=== PATIENT | male | born 1955 | race Caucasian/White ===

== ENCOUNTER 2020-03-29 14:23 | Outpatient (REF) | payer OTHER, SELFPAY | END 2020-03-29 14:24 | disposition home or self-care (01) | LOC: HO.MRI 14:23 | PROVIDERS: Visit Provider Internal Medicine | DX: Z13.89 Encounter for screening for other disorder (principal) ==

== ENCOUNTER → 2020-03-30 11:28 | Outpatient (BNVA) | payer OTHER, SELFPAY | PROVIDERS: PCP Internal Medicine; Referring Provider Internal Medicine; Visit Provider Student in an Organized Health Care Education/Training Program | DX: M25.50 Pain in unspecified joint (principal); M67.912 Unspecified disorder of synovium and tendon, left shoulder; Z79.899 Other long term (current) drug therapy | CPT/HCPCS: 99212 ==

== ENCOUNTER 2020-03-30 12:23 | Outpatient (REF) | payer OTHER, SELFPAY ==
[2020-03-30 14:41] LABS: Erythrocyte Sedimentation Rate 9 MM/HR (0-15)
== END 2020-03-30 12:24 | disposition home or self-care (01) ==
LOC: HO.LAB 12:23
PROVIDERS: PCP Internal Medicine; Visit Provider Student in an Organized Health Care Education/Training Program
DX: M25.50 Pain in unspecified joint (principal)
CPT/HCPCS: 36415; 85652

== ENCOUNTER 2020-04-11 09:29 | Outpatient (REF) | payer OTHER, SELFPAY ==
--- NOTE | 2020-04-11 09:34 | MR_ITS ---
EXAMINATION: MR CERVICAL SPINE WITHOUT CONTRAST CLINICAL INFORMATION: Cervical spondylosis. Myelopathy. COMPARISON: Cervical spine MRI 04/03/2016. TECHNIQUE: MRI of the cervical spine was obtained using routine sequences without contrast. FINDINGS: There is slight anterolisthesis of C6 on C7 and C7 on T1 that appears to be related to facet degenerative changes at these 2 levels. Alignment is otherwise normal. Vertebral heights are preserved. There is mild bone marrow edema involving the articular pillars of the left C5-C6 facet joint. No other acute bone marrow signal changes within the [id number] of this examination. There is no canal compromise or cord compression. No abnormal intramedullary signal changes. The cervicomedullary junction is normal. Limited visualization of intracranial structures reveals no abnormal finding. The occipital condyles and lateral C1 masses are intact. There is severe degenerative arthrosis of the atlantodental joint. C1-C2 articular facets are unremarkable. At C2-C3 the annular contour is normal. No canal stenosis. Asymmetric uncovertebral joint spurring and facet degenerative change causes mild bilateral neuroforaminal encroachment, slightly greater right. At C3-C4 the annular contour is normal. No canal stenosis. Uncovertebral joint spurring and facet degenerative change causes mild to moderate bilateral neuroforaminal encroachment. At C4-C5 the annular contour is normal. No canal stenosis. Uncovertebral joint spurring and facet degenerative change causes severe right and mild left neuroforaminal encroachment. At C5-C6 there is a diffusely bulging disc causing flattening of the thecal sac and buckling of ligamenta flava causing dorsolateral indentation of the thecal sac. Mild to moderate canal stenosis. Asymmetric uncovertebral joint spurring and facet degenerative change causes severe left and mild right neuroforaminal encroachment. At C6-C7 there is a slightly bulging disc. No canal stenosis. Uncovertebral joint spurring and facet degenerative change causes moderate left and mild right neuroforaminal encroachment. At C7-T1 there is a slightly bulging disc. No canal stenosis. Uncovertebral joint spurring and facet degenerative change causes moderate left and mild right neuroforaminal encroachment. Visualized soft tissues of the neck are normal. MR/MR cervical spine wo con IMPRESSION: There is multilevel degenerative spondylosis of the cervical spine with slight anterolisthesis of C6 on C7 and C7 on T1. There is mild to moderate canal stenosis at C5-C6. No overt cord compression or abnormal intramedullary signal changes. There are varying degrees of neuroforaminal encroachment related to uncovertebral joint spurring and facet degenerative change as described above. There is mild bone marrow edema involving the articular pillars of the left C5-C6 facet joint, presumably representing aseptic inflammation in setting of facet arthrosis.
== END 2020-04-11 09:30 | disposition home or self-care (01) ==
LOC: HO.MRI 09:29
PROVIDERS: Visit Provider Internal Medicine
DX: M47.812 Spondylosis without myelopathy or radiculopathy, cervical region (principal)
CPT/HCPCS: 72141

== ENCOUNTER 2020-04-22 11:02 | Outpatient (REF) | payer OTHER, SELFPAY ==
[2020-04-22 12:05] LABS: C Reactive Protein 0.35 mg/dL (< or = 0.50)
[2020-04-22 13:56] LABS: Erythrocyte Sedimentation Rate 7 MM/HR (0-15)
== END 2020-04-22 11:03 | disposition home or self-care (01) ==
LOC: HO.LAB 11:02
PROVIDERS: PCP Internal Medicine; Visit Provider Student in an Organized Health Care Education/Training Program
DX: M25.50 Pain in unspecified joint (principal)
CPT/HCPCS: 36415; 85652; 86140

== ENCOUNTER → 2020-04-28 09:17 | Outpatient (BNVA) | payer OTHER, SELFPAY | PROVIDERS: PCP Internal Medicine; Referring Provider Internal Medicine; Visit Provider Student in an Organized Health Care Education/Training Program | DX: Z76.89 Persons encountering health services in other specified circumstances (principal) ==

== ENCOUNTER 2020-05-23 09:55 | Outpatient (REF) | payer MEDICAID, SELFPAY ==
--- NOTE | 2020-05-23 10:21 | XR_ITS ---
EXAMINATION: XR CHEST CLINICAL INFORMATION: Smoker. Follow-up. COMPARISON: Chest 10/07/2018 TECHNIQUE: 2 views of the chest were obtained. FINDINGS: The lungs are well-expanded and clear of acute process. There is a 1 cm nodular density right lower lobe right posterior eighth interspace. The heart size and pulmonary vascularity is normal. There is mild spondylosis of dorsal spine. No lytic process. XR/XR chest 2V IMPRESSION: No acute process seen. New 1 cm nodular density visualized in right lower lobe.
[2020-05-23 10:52] LABS: Hemoglobin 14.7 g/dl (14.0-18.0); Mean Corpuscular Hemoglobin 31.5 pg (27.0-33.0); Mean Corpuscular Volume 89.9 fL (80-98); Mean Platelet Volume 9.1 fL (9.4-12.4); Platelet Count 225 X10*3/uL (160-400); Red Blood Count 4.67 X10*6/uL (4.60-5.80); Red Cell Distribution Width 11.9 % (11.0-16.0); White Blood Count 9.8 X10*3/uL (4.8-10.8)
[2020-05-23 11:20] LABS: C Reactive Protein 0.38 mg/dL (< or = 0.50)
[2020-05-23 11:23] LABS: Alanine Aminotransferase 23 U/L (0-40); Albumin Level 4.1 g/dL (3.5-5.0); Alkaline Phosphatase 60 U/L (39-117); Anion Gap 13 (12-20); Aspartate Amino Transferase 17 U/L (5-37); Bilirubin Direct 0.4 mg/dL (0.0-0.5); Bilirubin Total 1.1 mg/dL (0.0-1.0); Blood Urea Nitrogen 10 mg/dL (9-16); C Reactive Protein 0.33 mg/dL (< or = 0.50); Calcium 9.1 mg/dL (8.4-10.2); Carbon Dioxide 30 mmol/L (22-29); Chloride 104 mmol/L (96-108); Cholesterol 220 mg/dL; Estimated Glomerular Filt Rate > 60; Glucose Random 108 mg/dL (60-115); HDL Cholesterol 69 mg/dL; LDL Cholesterol Calculated 126 mg/dl; Potassium 4.9 mmol/l (3.3-5.1); Sodium 142 mmol/L (135-145); Total Protein 6.3 g/dL (6.5-8.0); Triglycerides 127 mg/dL
[2020-05-23 11:44] LABS: Thyroid Stimulating Hormone 1.36 uIU/mL (0.32-4.0)
[2020-05-23 11:49] LABS: Folate 12.1 ng/mL (> or = 4.0); Vitamin B12 310 pg/mL (200-900)
[2020-05-23 12:31] LABS: Erythrocyte Sedimentation Rate 6 MM/HR (0-15)
[2020-05-27 13:42] LABS: Vitamin D 25-OH, D2 <4 ng/mL; Vitamin D 25-OH, D3 30 ng/mL; Vitamin D 25-OH, Total 30 ng/mL (30-100)
== END 2020-05-23 09:56 | disposition home or self-care (01) ==
LOC: HO.LAB 09:55
PROVIDERS: Student in an Organized Health Care Education/Training Program; PCP Internal Medicine; Visit Provider Internal Medicine
DX: Z00.01 Encounter for general adult medical examination with abnormal findings (principal); R07.9 Chest pain, unspecified; M25.50 Pain in unspecified joint
CPT/HCPCS: 36415; 71046; 80048; 80061; 80076; 82306; 82607; 82746; 84443; 85027; 85652; 86140

== ENCOUNTER → 2021-02-07 09:59 | Outpatient (BNVA) | payer OTHER, SELFPAY | PROVIDERS: PCP Internal Medicine; Visit Provider Nurse Practitioner Family | DX: M25.50 Pain in unspecified joint (principal) | CPT/HCPCS: 99212 ==

== ENCOUNTER 2021-03-06 07:31 | Outpatient (REF) | payer OTHER, SELFPAY ==
[2021-03-06 07:42] LABS: MANUAL DIFF FLAG NO
[2021-03-06 08:01] LABS: Basophils Percent Auto 0.5 % (0-2); Eosinophils Absolute Auto 0.2 X10*3/uL (0.0-0.4); Eosinophils Percent Auto 2.4 % (0-4); Hematocrit 43.1 % (42-52); Imm Gran Abs Auto 0.03 X10*3/uL (0.00-0.03); Imm Gran Pct Auto 0.4 % (0.0-0.4); Lymphocytes Absolute Auto 2.5 X10*3/uL (1.2-4.9); Mean Corpuscular HGB Conc 34.8 g/dl (31.0-36.0); Mean Corpuscular Hemoglobin 31.6 pg (27.0-33.0); Mean Corpuscular Volume 90.9 fL (80-98); Mean Platelet Volume 9.4 fL (9.4-12.4); Monocytes Absolute Auto 0.9 X10*3/uL (0.1-1.2); Monocytes Percent Auto 10.5 % (2-11); Neutrophils Absolute Auto 4.7 X10*3/uL (2.0-8.3); Neutrophils Percent Auto 56.2 % (45-73); Platelet Count 224 X10*3/uL (160-400); Red Blood Count 4.74 X10*6/uL (4.60-5.80); White Blood Count 8.4 X10*3/uL (4.8-10.8)
[2021-03-06 08:29] LABS: Alanine Aminotransferase 22 U/L (0-40); Alkaline Phosphatase 68 U/L (39-117); Anion Gap 12 (12-20); Aspartate Amino Transferase 23 U/L (5-37); Bilirubin Total 1.3 mg/dL (0.0-1.0); Blood Urea Nitrogen 11 mg/dL (9-16); C Reactive Protein 0.25 mg/dL (< or = 0.50); Calcium 9.3 mg/dL (8.4-10.2); Carbon Dioxide 29 mmol/L (22-29); Chloride 106 mmol/L (96-108); Estimated Glomerular Filt Rate > 60; Glucose Random 99 mg/dL (60-115); Potassium 4.5 mmol/L (3.3-5.1); Sodium 142 mmol/L (135-145)
[2021-03-06 09:38] LABS: Erythrocyte Sedimentation Rate 5 MM/HR (0-15)
== END 2021-03-06 07:32 | disposition home or self-care (01) ==
LOC: HO.LAB 07:31
PROVIDERS: PCP Internal Medicine; Visit Provider Nurse Practitioner Family
DX: M25.50 Pain in unspecified joint (principal)
CPT/HCPCS: 36415; 80053; 85025; 85652; 86140

== ENCOUNTER → 2021-03-30 11:33 | Outpatient (BNVA) | payer OTHER, SELFPAY | PROVIDERS: PCP Internal Medicine; Visit Provider Nurse Practitioner Family | DX: M47.812 Spondylosis without myelopathy or radiculopathy, cervical region (principal); M25.511 Pain in right shoulder; M25.512 Pain in left shoulder; M54.9 Dorsalgia, unspecified; M25.551 Pain in right hip; M25.552 Pain in left hip | CPT/HCPCS: 99212 ==

== ENCOUNTER 2021-04-18 07:03 | Outpatient (REF) | payer OTHER, SELFPAY ==
--- NOTE | ~2021-04-18 | XR_ITS ---
EXAMINATION: XR HIP, RIGHT XR HIP, LEFT CLINICAL INFORMATION: Pain COMPARISON: 11/28/2016 TECHNIQUE: 2 views of each hip FINDINGS: Right hip: No fracture or dislocation. The femoral head articulates appropriately with its acetabulum. The joint space is maintained. There is marginal osteophyte formation with subchondral sclerosis noted. The visualized right hemipelvis is intact. Left hip: No fracture or dislocation. The femoral head articulates appropriately with its acetabulum. The joint space is maintained. There is marginal osteophyte formation with subchondral sclerosis noted. The visualized left hemipelvis is intact. XR/XR hip RT min 2V IMPRESSION: Mild degenerative changes of both hips. Similar appearance to prior imaging.
--- NOTE | ~2021-04-18 | XR_ITS ---
EXAMINATION: XR SHOULDER, LEFT XR SHOULDER, RIGHT CLINICAL INFORMATION: Pain COMPARISON: 02/01/2020 TECHNIQUE: 4 views of each shoulder FINDINGS: Left shoulder: No fracture or dislocation. The glenohumeral joint is well aligned. There is narrowing of the joint space with osteophyte formation. Moderate hypertrophic degenerative changes of the acromioclavicular joint. The visualized lung is clear. The visualized ribs are intact. Right shoulder: No fracture or dislocation. The glenohumeral joint is well aligned. Mild narrowing of the joint space with marginal osteophyte formation. Moderate degenerative changes of the acromioclavicular joint. The visualized lung is clear. The visualized ribs are intact. XR/XR shoulder LT min 2V IMPRESSION: Mild to moderate degenerative changes of both shoulders.
--- NOTE | ~2021-04-18 | XR_ITS ---
EXAMINATION: XR SHOULDER, LEFT XR SHOULDER, RIGHT CLINICAL INFORMATION: Pain COMPARISON: 02/01/2020 TECHNIQUE: 4 views of each shoulder FINDINGS: Left shoulder: No fracture or dislocation. The glenohumeral joint is well aligned. There is narrowing of the joint space with osteophyte formation. Moderate hypertrophic degenerative changes of the acromioclavicular joint. The visualized lung is clear. The visualized ribs are intact. Right shoulder: No fracture or dislocation. The glenohumeral joint is well aligned. Mild narrowing of the joint space with marginal osteophyte formation. Moderate degenerative changes of the acromioclavicular joint. The visualized lung is clear. The visualized ribs are intact. XR/XR shoulder RT min 2V IMPRESSION: Mild to moderate degenerative changes of both shoulders.
--- NOTE | ~2021-04-18 | XR_ITS ---
EXAMINATION: XR HIP, RIGHT XR HIP, LEFT CLINICAL INFORMATION: Pain COMPARISON: 11/28/2016 TECHNIQUE: 2 views of each hip FINDINGS: Right hip: No fracture or dislocation. The femoral head articulates appropriately with its acetabulum. The joint space is maintained. There is marginal osteophyte formation with subchondral sclerosis noted. The visualized right hemipelvis is intact. Left hip: No fracture or dislocation. The femoral head articulates appropriately with its acetabulum. The joint space is maintained. There is marginal osteophyte formation with subchondral sclerosis noted. The visualized left hemipelvis is intact. XR/XR hip LT min 2V IMPRESSION: Mild degenerative changes of both hips. Similar appearance to prior imaging.
[2021-04-18 08:22] LABS: C Reactive Protein 0.17 mg/dL (< or = 0.50)
[2021-04-18 08:52] LABS: Erythrocyte Sedimentation Rate 5 MM/HR (0-15)
== END 2021-04-18 07:04 | disposition home or self-care (01) ==
LOC: HO.XRAY 07:03
PROVIDERS: Student in an Organized Health Care Education/Training Program; PCP Internal Medicine; Visit Provider Nurse Practitioner Family
DX: M25.551 Pain in right hip (principal); M25.552 Pain in left hip; M25.511 Pain in right shoulder; M25.512 Pain in left shoulder
CPT/HCPCS: 36415; 73030; 73502; 85652; 86140

== ENCOUNTER 2021-05-03 12:45 | Outpatient (REF) | payer OTHER, SELFPAY ==
--- NOTE | ~2021-05-03 | MR_ITS ---
EXAMINATION: MR CERVICAL SPINE WITHOUT CONTRAST CLINICAL INFORMATION: Radiculopathy. COMPARISON: Cervical spine MRI from 04/11/2020. TECHNIQUE: MRI of the cervical spine was obtained using routine sequences without contrast. FINDINGS: Mild degenerative stepwise anterolisthesis from C4-T3. Otherwise, normal anatomic alignment. Moderate degenerative disc disease from C4-T3. Mild degenerative disc disease from C2-C4. Associated mixed Modic type discogenic endplate changes including mild Modic type I discogenic edema at C5-C6 and C6-C7. Mild marrow edema within the C5-C6 and T1-T2 facets consistent with degenerative stress reaction. No additional suspicious marrow edema. The vertebral body heights are largely maintained. No demonstrated spinal cord signal abnormalities. Limited evaluation of the soft tissues of the neck without demonstrated abnormalities. The flow voids of the major cervical vessels are maintained. Normal appearance of the cervicomedullary junction and visualized posterior fossa. SPINAL LEVELS: C2-C3: Normal annular contour. There is no uncovertebral joint arthropathy. There is moderate bilateral facet joint arthropathy. There is moderate right and mild left neural foraminal stenosis. There is no spinal canal stenosis. C3-C4: Mild disc-osteophyte complex. There is mild right and no left uncovertebral joint arthropathy. There is severe left and moderate right facet joint arthropathy. There is moderate bilateral neural foraminal stenosis. There is no spinal canal stenosis. C4-C5: Mild disc-osteophyte complex. There is moderate right and mild left uncovertebral joint arthropathy. There is severe right and moderate left facet joint arthropathy. There is severe right and moderate left neural foraminal stenosis. There is no spinal canal stenosis. C5-C6: Moderate disc-osteophyte complex. There is severe left and moderate right uncovertebral joint arthropathy. There is severe bilateral facet joint arthropathy. There is severe left and moderate right neural foraminal stenosis. There is mild to moderate spinal canal stenosis. C6-C7: Moderate disc-osteophyte complex. There is severe right and moderate left uncovertebral joint arthropathy. There is severe right and moderate left facet joint arthropathy. There is moderate bilateral neural foraminal stenosis. There is no spinal canal stenosis. C7-T1: Mild disc-osteophyte complex. There is mild bilateral uncovertebral joint arthropathy. There is moderate bilateral facet joint arthropathy. There is mild bilateral neural foraminal stenosis. There is no spinal canal stenosis. MR/MR cervical spine wo con IMPRESSION: Moderate multilevel degenerative spondyloarthropathy of the cervical spine as described in detail above. Most notably, there is mild to moderate spinal canal stenosis at C5-C6. Moderate to severe neural foraminal stenoses from C2-C7. Overall, degenerative changes are similar to exam from 2020.
== END 2021-05-03 12:46 | disposition home or self-care (01) ==
LOC: HO.MRI 12:45
PROVIDERS: PCP Internal Medicine; Visit Provider Nurse Practitioner Family
DX: M54.10 Radiculopathy, site unspecified (principal); M47.812 Spondylosis without myelopathy or radiculopathy, cervical region
CPT/HCPCS: 72141

== ENCOUNTER → 2021-05-15 10:58 | Outpatient (BNVA) | payer OTHER, SELFPAY | PROVIDERS: PCP Internal Medicine; Visit Provider Anesthesiology | DX: M47.816 Spondylosis without myelopathy or radiculopathy, lumbar region (principal); M96.1 Postlaminectomy syndrome, not elsewhere classified; G89.4 Chronic pain syndrome | CPT/HCPCS: 99212 ==

== ENCOUNTER 2021-05-26 09:44 | Outpatient (REF) | payer OTHER, SELFPAY ==
--- NOTE | ~2021-05-26 | MR_ITS ---
MR LUMBAR SPINE WITHOUT IV CONTRAST CLINICAL INFORMATION: Postlaminectomy syndrome. COMPARISON: Lumbar spine MRI 02/11/2013. TECHNIQUE: MRI of the lumbar spine was obtained using routine sequences without contrast. FINDINGS: There are 5 nonrib-bearing lumbar-type vertebral bodies. Chronic endplate Schmorl's nodes at the lower thoracic levels and throughout the lumbar spine. There is an inferior endplate Schmorl's nodes surrounded by mild marrow edema at L4. There is marrow edema within the L5 and S1 posterior elements bilaterally that is most likely degenerative or inflammatory. No acute fractures. There is disc desiccation at all lumbar levels the exception of L1 on L2. Heterogeneous marrow signal throughout the lumbar spine. Conus terminates at the L1-L2 level. There is bilateral perinephric stranding. L1-L2: Diffuse annular disc bulge with a superimposed left lateral disc protrusion that approaches and may contact the extraforaminal left L1 nerve root, progressed. L2-L3: Diffuse annular disc bulge and moderate bilateral facet arthropathy and ligamentum thickening. No central canal stenosis. Left lateral disc osteophyte protrusion results in mild to moderate left foraminal stenosis and probable mass effect on the extraforaminal left L2 nerve root which is unchanged. L3-L4: There is a right paracentral/right lateral disc protrusion which is increased in size, resulting in worsening compression of the traversing right L4 nerve root within the right subarticular zone and worsening moderate right foraminal stenosis with compression of the extraforaminal right L3 nerve root. A left lateral disc osteophyte protrusion is also progressed that along with advanced facet arthropathy results in moderate to severe left foraminal stenosis and compression of the exiting left L3 nerve root. L4-L5: Diffuse disc osteophyte complex and severe bilateral facet arthropathy and ligamentum flavum thickening. Laminectomy changes. Findings in concert result in persistent severe right subarticular zone stenosis with compression of the traversing right L5 nerve root in stable severe bilateral foraminal stenosis with compression of the exiting L4 nerve roots bilaterally. Mild central canal stenosis. L5-S1: Diffuse disc osteophyte complex and severe bilateral facet arthropathy and ligamentum flavum pinning. Mild narrowing of the central canal. Disc osteophyte and facet arthropathy result in worsening severe bilateral foraminal stenosis with compression of the exiting L5 nerve roots bilaterally. A new 3 mm synovial cyst projecting anteriorly from the lateral margin of the severely degenerative left facet joint also contributes towards mass effect on the extraforaminal left L5 nerve root. MR/MR lumbar spine wo con IMPRESSION: - At L5-S1, progressive advanced multifactorial degenerative changes result in worsening severe bilateral foraminal stenosis with compression of the exiting L5 nerve roots bilaterally. A new 3 mm synovial cyst projecting anteriorly from the lateral margin of the severely degenerative left facet joint also contributes towards mass effect on the extraforaminal left L5 nerve root. - At L4-L5, advanced multifactorial degenerative changes result in persistent severe right subarticular zone stenosis with compression of the traversing right L5 nerve root in stable severe bilateral foraminal stenosis with compression of the exiting L4 nerve roots bilaterally. - At L3-L4, a right paracentral/right lateral disc protrusion is increased in size, resulting in worsening compression of the traversing right L4 nerve root within the right subarticular zone and worsening moderate right foraminal stenosis with compression of the extraforaminal right L3 nerve root. A left lateral disc osteophyte protrusion is also progressed that along with advanced facet arthropathy results in moderate to severe left foraminal stenosis and compression of the exiting left L3 nerve root. - At L2-L3, a left lateral disc osteophyte protrusion results in mild to moderate left foraminal stenosis and probable mass effect on the extraforaminal left L2 nerve root which is unchanged. - At L1-L2, there is a progressive far left lateral disc protrusion that may contact the extraforaminal left L1 nerve root. - There is an inferior endplate Schmorl's nodes surrounded by mild marrow edema at L4. - There is marrow edema within the L5 and S1 posterior elements bilaterally that is most likely degenerative or inflammatory. No acute fractures.
== END 2021-05-26 09:45 | disposition home or self-care (01) ==
LOC: HO.MRI 09:44
PROVIDERS: PCP Internal Medicine; Visit Provider Anesthesiology
DX: M96.1 Postlaminectomy syndrome, not elsewhere classified (principal); M47.816 Spondylosis without myelopathy or radiculopathy, lumbar region
CPT/HCPCS: 72148

== ENCOUNTER 2021-05-31 07:46 | Outpatient (REF) | payer OTHER, SELFPAY ==
--- NOTE | ~2021-05-31 | XR_ITS ---
EXAMINATION: XR HAND, RIGHT XR HAND, LEFT CLINICAL INFORMATION: Bilateral pain. COMPARISON: Radiographs bilateral hands 10/07/2018 TECHNIQUE: Each hand is imaged in 3 views. There are total of 6 views. FINDINGS: Right: There is no fracture dislocation or destructive process. Ulnar variance is neutral. There is normal bony mineralization. No periarticular demineralization. There is no focal joint narrowing involving the carpus, MCP, and PIP joints. There is mild degenerative change involving the DIP joints similar to prior study. Left: There is no fracture dislocation or destructive process. Ulnar variance is neutral. There is normal bony mineralization. No periarticular demineralization. There is no focal joint narrowing involving the carpus, MCP, and PIP joints. There is mild degenerative change involving the DIP joints similar to prior study. XR/XR hand LT min 3V IMPRESSION: Degenerative changes bilateral DIP joint. No erosive changes.
--- NOTE | ~2021-05-31 | XR_ITS ---
EXAMINATION: XR HAND, RIGHT XR HAND, LEFT CLINICAL INFORMATION: Bilateral pain. COMPARISON: Radiographs bilateral hands 10/07/2018 TECHNIQUE: Each hand is imaged in 3 views. There are total of 6 views. FINDINGS: Right: There is no fracture dislocation or destructive process. Ulnar variance is neutral. There is normal bony mineralization. No periarticular demineralization. There is no focal joint narrowing involving the carpus, MCP, and PIP joints. There is mild degenerative change involving the DIP joints similar to prior study. Left: There is no fracture dislocation or destructive process. Ulnar variance is neutral. There is normal bony mineralization. No periarticular demineralization. There is no focal joint narrowing involving the carpus, MCP, and PIP joints. There is mild degenerative change involving the DIP joints similar to prior study. XR/XR hand RT min 3V IMPRESSION: Degenerative changes bilateral DIP joint. No erosive changes.
[2021-05-31 08:49] LABS: Rheumatoid Factor < 15.0 IU/mL (<15.0)
[2021-05-31 08:51] LABS: Anion Gap 12 (12-20); Blood Urea Nitrogen 11 mg/dL (9-16); C Reactive Protein 1.02 mg/dL (< or = 0.50); Calcium 9.6 mg/dL (8.4-10.2); Carbon Dioxide 30 mmol/L (22-29); Chloride 104 mmol/L (96-108); Estimated Glomerular Filt Rate > 60; Glucose Random 110 mg/dL (60-115); Potassium 4.8 mmol/L (3.3-5.1); Sodium 141 mmol/L (135-145)
[2021-05-31 09:10] LABS: Erythrocyte Sedimentation Rate 10 MM/HR (0-15)
[2021-06-04 02:16] LABS: Cyclic Citrullinated Peptide <16 UNITS
== END 2021-05-31 07:47 | disposition home or self-care (01) ==
LOC: HO.LAB 07:46
PROVIDERS: Anesthesiology; PCP Internal Medicine; Visit Provider Nurse Practitioner Family
DX: M96.1 Postlaminectomy syndrome, not elsewhere classified (principal); M79.641 Pain in right hand; M79.642 Pain in left hand; M25.50 Pain in unspecified joint; M47.812 Spondylosis without myelopathy or radiculopathy, cervical region; M35.3 Polymyalgia rheumatica; F17.290 Nicotine dependence, other tobacco product, uncomplicated; Z79.899 Other long term (current) drug therapy
CPT/HCPCS: 36415; 73130; 80048; 85652; 86140; 86200; 86431; 99212

== ENCOUNTER 2021-06-01 09:42 | Outpatient (REF) | payer OTHER, SELFPAY ==
[2021-06-01 10:41] LABS: Hematocrit 43.8 % (42.0-52.0); Hemoglobin 15.5 g/dl (14.0-18.0); Mean Corpuscular HGB Conc 35.4 g/dl (31.0-36.0); Mean Corpuscular Hemoglobin 30.4 pg (27.0-33.0); Mean Corpuscular Volume 85.9 fL (80.0-98.0); Mean Platelet Volume 9.1 fL (9.4-12.4); Platelet Count 295 X10*3/uL (160-400); Red Cell Distribution Width 11.5 % (11.0-16.0)
[2021-06-01 11:17] LABS: Erythrocyte Sedimentation Rate 13 MM/HR (0-15)
[2021-06-01 11:19] LABS: Alanine Aminotransferase 22 U/L (0-40); Albumin Level 4.1 g/dL (3.5-5.0); Alkaline Phosphatase 84 U/L (39-117); Anion Gap 13 (12-20); Aspartate Amino Transferase 16 U/L (5-37); Bilirubin Direct 0.3 mg/dL (0.0-0.5); Blood Urea Nitrogen 11 mg/dL (9-16); Calcium 9.7 mg/dL (8.4-10.2); Carbon Dioxide 24 mmol/L (22-29); Chloride 108 mmol/L (96-108); Cholesterol 237 mg/dL; Estimated Glomerular Filt Rate > 60; Glucose Random 99 mg/dL (60-115); HDL Cholesterol 51 mg/dL; LDL Cholesterol Calculated 161 mg/dl; Potassium 4.4 mmol/L (3.3-5.1); Sodium 141 mmol/L (135-145); Total Protein 6.9 g/dL (6.5-8.0); Triglycerides 125 mg/dL
[2021-06-01 11:29] LABS: Thyroid Stimulating Hormone 0.59 uIU/mL (0.32-4.0)
[2021-06-01 11:58] LABS: Appearance Urine CLEAR; Color Urine YELLOW; Glucose Urine UA NEG (NEG); Leukocyte Esterase Urine NEG (NEG); Nitrite Urine NEG (NEG); Specific Gravity - Urine >= 1.030 (1.005-1.025); Urine Blood NEG (NEG); Urine Ketones NEG (NEG); Urine Protein NEG (NEG-TRACE)
[2021-06-05 16:17] LABS: Vitamin D 25-OH, D2 <4 ng/mL; Vitamin D 25-OH, D3 37 ng/mL; Vitamin D 25-OH, Total 37 ng/mL (30-100)
== END 2021-06-01 09:43 | disposition home or self-care (01) ==
LOC: HO.LAB 09:42
PROVIDERS: PCP Internal Medicine; Visit Provider Internal Medicine
DX: I10 Essential (primary) hypertension (principal); M47.812 Spondylosis without myelopathy or radiculopathy, cervical region
CPT/HCPCS: 36415; 80048; 80061; 80076; 81003; 82306; 84443; 85027; 85652

== ENCOUNTER → 2021-06-19 14:52 | Outpatient (BNVA) | payer OTHER, SELFPAY | PROVIDERS: PCP Internal Medicine; Visit Provider Physician Assistant | DX: M35.3 Polymyalgia rheumatica (principal); G89.4 Chronic pain syndrome; M54.12 Radiculopathy, cervical region; M48.02 Spinal stenosis, cervical region; Z79.52 Long term (current) use of systemic steroids; Z79.899 Other long term (current) drug therapy | CPT/HCPCS: 99202 ==

== ENCOUNTER → 2021-11-29 11:23 | Outpatient (BNVA) | payer MEDICAID, SELFPAY | PROVIDERS: PCP Internal Medicine; Visit Provider Nurse Practitioner Family | DX: M35.3 Polymyalgia rheumatica (principal); M47.812 Spondylosis without myelopathy or radiculopathy, cervical region; M19.042 Primary osteoarthritis, left hand; M19.041 Primary osteoarthritis, right hand; M47.816 Spondylosis without myelopathy or radiculopathy, lumbar region; Z79.52 Long term (current) use of systemic steroids | CPT/HCPCS: 99212 ==

== ENCOUNTER 2022-06-19 09:49 | Outpatient (REF) | payer MEDICAID, SELFPAY ==
[2022-06-19 10:40] LABS: Hematocrit 40.5 % (42.0-52.0); Hemoglobin 14.6 g/dl (14.0-18.0); Mean Corpuscular Hemoglobin 31.7 pg (27.0-33.0); Mean Corpuscular Volume 87.9 fL (80.0-98.0); Mean Platelet Volume 9.4 fL (9.4-12.4); Platelet Count 207 X10*3/uL (160-400); Red Blood Count 4.61 X10*6/uL (4.60-5.80); Red Cell Distribution Width 11.7 % (11.0-16.0); White Blood Count 7.2 X10*3/uL (4.8-10.8)
[2022-06-19 10:42] LABS: Appearance Urine Clear; Color Urine Yellow; Glucose Urine UA Negative (Negative); Leukocyte Esterase Urine Negative (Negative); Nitrite Urine Negative (Negative); PH 5.5 (5.0-9.0); Urine Blood Negative (Negative); Urine Ketones Trace mg/dL (Negative); Urine Protein Negative (Neg-Trace)
[2022-06-19 11:15] LABS: Alanine Aminotransferase 23 U/L (0-40); Albumin Level 3.9 g/dL (3.5-5.0); Alkaline Phosphatase 64 U/L (39-117); Anion Gap 14 (12-20); Aspartate Amino Transferase 20 U/L (5-37); Bilirubin Direct 0.3 mg/dL (0.0-0.5); Bilirubin Total 1.1 mg/dL (0.0-1.0); Blood Urea Nitrogen 11 mg/dL (9-16); Calcium 9.1 mg/dL (8.4-10.2); Carbon Dioxide 23 mmol/L (22-29); Chloride 109 mmol/L (96-108); Cholesterol 185 mg/dL; Estimated Glomerular Filt Rate > 60; Glucose Random 98 mg/dL (60-115); HDL Cholesterol 45 mg/dL; LDL Cholesterol Calculated 128 mg/dl; Potassium 4.4 mmol/L (3.3-5.1); Sodium 142 mmol/L (135-145); Total Protein 5.9 g/dL (6.5-8.0); Triglycerides 63 mg/dL
[2022-06-19 11:34] LABS: Thyroid Stimulating Hormone 1.55 uIU/mL (0.32-4.0)
== END 2022-06-19 09:50 | disposition home or self-care (01) ==
LOC: HO.LAB 09:49
PROVIDERS: PCP Internal Medicine; Visit Provider Internal Medicine
DX: I10 Essential (primary) hypertension (principal); K21.9 Gastro-esophageal reflux disease without esophagitis
CPT/HCPCS: 36415; 80048; 80061; 80076; 81003; 84443; 85027

== ENCOUNTER → 2022-07-06 08:20 | Outpatient (BNVA) | payer MEDICAID, SELFPAY | PROVIDERS: PCP Internal Medicine; Visit Provider Nurse Practitioner Family | DX: M35.3 Polymyalgia rheumatica (principal); M47.812 Spondylosis without myelopathy or radiculopathy, cervical region; M19.042 Primary osteoarthritis, left hand; M19.041 Primary osteoarthritis, right hand; M47.816 Spondylosis without myelopathy or radiculopathy, lumbar region; R21 Rash and other nonspecific skin eruption | CPT/HCPCS: 99212 ==

== ENCOUNTER 2022-07-27 09:30 | Outpatient (RCR) | payer MEDICAID, SELFPAY ==
--- NOTE | 2022-08-03 09:44 | MHC.OT.DC ---
[address] [phone] F: [phone] Occupational Therapy Discharge Note Patient Name: Severino Willson Provider: Estefany Dejesus NP Diagnosis: B/L Hand OA Date of Evaluation: 07/13/22 Date of Discharge: 07/27/22 Treatments to Date: 3 Discharge Status: Achieved Goals Improved Function Independent with HEP Discharge Summary: Chong was referred to OT w/ B/L hand pain and he has done well with brief course of OT. He has reported low pain and is feeling encouraged, noting ease w/ nighttime oval 8 splint wear, but still w/ active triggering of small finger, advised to wear orthosis more frequently during the day as needed. Ind w/ self management techniques at this time. If trigger finger conts to persist, he may benefit from ortho referral for further treatment. Electronically Signed By: Farrah Moon OTR/L CHT Reviewed/agree with student documentation: Therapist: Please Sign and return to therapist, thank you for your referral.
== END 2022-08-03 09:47 | disposition home or self-care (01) ==
LOC: HO.OT 09:30
PROVIDERS: PCP Internal Medicine; Visit Provider Nurse Practitioner Family
DX: M19.041 Primary osteoarthritis, right hand (principal); M79.642 Pain in left hand
CPT/HCPCS: 97018; 97110; 97140; 97165

== ENCOUNTER 2022-11-29 15:10 | Outpatient (AMB) | payer MEDICAID, SELFPAY ==
--- NOTE | 2022-11-29 15:21 | A.OFFPC_ITS ---
Vital Signs 11/29/22 15:23 Height 6 ft Weight 212 lb 2 oz BMI 28.8 BP 130/70 Blood Pressure Location Lt brachial Position Sitting Pulse 84 Pulse Source Pulse Oximeter Pulse Oximetry (%) 95 Oxygen Delivery Method Room Air Intake Visit Reasons: 8 week F/U ( Medications) Intake Note: Patient is here to follow up on medication review. Supervisor Whipped Topping Required: No Dietary Service Aide: Not Required per policy Accompanied by: Self / Same As Patient Allergies No Known Allergies Allergy (Verified 11/30/22 14:58) Medication List - Last Reconciled 11/30/22 by Chris Ernst MD albuterol sulfate 90 mcg/actuation (Ventolin HFA) 1 inh inhalation QID PRN meloxicam 7.5 mg PO BID omeprazole 40 mg PO DAILY prednisone 5 mg PO DAILY valsartan 40 mg PO BID Tobacco use date assessed: 11/29/22 Fall risk assessment: No Falls in past year Last assessed Fall Risk: 11/29/22 Dental Screening Dental Screen Date: 11/29/22 Did you have a dental visit in the last 12 months?: Yes Did you have a dental problem in the last 6 months where you did not have access to dental care?: No Was dental information given to patient?: Patient has dentist HPI 8 week F/U ( Medications) HPI Details 67-year-old male presents to the office for an urgent visit. He has polymyalgia for the past 8 years. Patient has been treating this condition with steroids. His baseline dosages 5 mg a day. However he does have flare ups which involves pains in his joints, difficulty moving etc and he has to increase his prednisone dosage. Patient would like a refill on the prednisone. [facility] Medical History Benign essential HTN Chronic pain syndrome Failed back syndrome GERD (gastroesophageal reflux disease) Nicotine dependence, unspecified, uncomplicated Osteoarthritis of hands, bilateral Osteoarthritis of neck Postlaminectomy syndrome Primary osteoarthritis, left hand Primary osteoarthritis, right hand Spondylosis of lumbar spine Surgical History CTS (carpal tunnel syndrome) Hx of decompressive lumbar laminectomy Family History Father No problems noted. Mother No problems noted. Social History (Updated 11/29/22 @ 15:31 by MARLIN Duke) Housing: House Alcohol intake: current Alcohol intake frequency: a few times a week Alcohol type: beer Patient Tobacco Use Status: Current someday Tobacco user Tobacco use type: Cigar Cigarettes Per Day: 1 e-Cigarette/Vaping Use: Never Used Second Hand Smoke Exposure: Yes service: No Current occupational status: unemployed Cognitive needs: No Hearing needs: No Vision needs: Yes (Glasses) Questionnaire Thrive Questionnaire Date Thrive assessed: 11/29/22 I am a: Patient What is your living situation today?: I have a steady place to live Within the past 12 months, did the food you bought not last and you didn't have the money to get more?: Never true Within the past 12 months, did you worry whether your food would run out before you got money to buy more?: Never true Do you have trouble paying for medicines?: No Do you have trouble getting transportation to medical appointments?: No Do you have trouble paying your heating and electricity bill?: No Do you have trouble taking care of your child, family member or friend?: No Do you have trouble with day-to-day activities such as bathing, preparing meals, shopping, managing finances, etc.?: No Are you currently unemployed and looking for a job?: No Are you interested in more education?: No Currently or been in a relationship where the following occur: no concerns reported AUDIT C Alcohol Use Questionnaire (AUDIT-C) 1. How often do you have a drink containing alcohol?: 2-3 times a week 2. How many drinks containing alcohol do you have on a typical day when you are drinking?: 1 or 2 Total Score: 3 PRINCE-7 AMB Questionnaire PRINCE-7 Date PRINCE - 7 assessed: 11/29/22 Feeling nervous, anxious, or on edge: 0 = Not at all Not being able to stop or control worryin = Not at all Worrying too much about different things: 0 = Not at all Trouble relaxin = Not at all Being so restless that it is hard to sit still: 0 = Not at all Becoming easily annoyed or irritable: 0 = Not at all Feeling afraid as if something awful might happen: 0 = Not at all Total PRINCE-7 score (0-4 normal; 5-9 mild; 10-14 moderate; 15-21 severe): 0 Source: Developed by Drs. Gustavo Marques, Edna Lam, Placido Sims and colleagues, with an educational po from [employer]. Physical exam (Primary Care) Vital Signs: Last Vital Signs Pulse 84 11/29/22 15:23 BP 130/70 11/29/22 15:23 Pulse Ox 95 11/29/22 15:23 Oxygen Delivery Method Room Air 11/29/22 15:23 BMI result Body Mass Index 28.8 Tobacco/Smoking Status: Tobacco use Status Tobacco use date assessed 11/29/22 11/29/22 15:32 Patient Tobacco Use Status Current someday Tobacco 11/29/22 15:32 Tobacco use type Cigar 11/29/22 15:32 e-Cigarette/Vaping Use Never Used 11/29/22 15:32 Thrive Assessment: Date of Thrive Assessment Date Thrive assessed 11/29/22 11/29/22 15:32 Currently or been in a relationship where the following occur: no concerns reported Const General: cooperative, healthy appearing and comfortable HENMT Head: Yes normal to inspection and Yes atraumatic Eyes General: appearance normal, both eyes and all related structures Neck Neck: Yes normal visual inspection and Yes full ROM Chest Chest palpation & inspection: normal inspection of the chest Resp Effort & Inspection: normal respiratory effort Auscultation: clear to auscultation bilaterally Cardio Jugular venous distension: no JVD Palpation: normal PMI Rate: regular rate Heart sounds: S1 normal heart sound present and S2 normal heart sound present GI Palpation (GI): Soft to palpation and No hepatosplenomegaly present Extrem General: Yes normal to inspection and Yes full ROM Assessment and Plan Assessment & Plan (1) Polymyalgia rheumatica: Code(s): M35.3 - Polymyalgia rheumatica Plan: Additional dosage for prednisone sent. Medications: Refilled prednisone 5 mg PO DAILY 90 tabs 1RF Coding Level of Care Code Est Pt Level 3 (39797) Diagnoses Polymyalgia rheumatica M35.3
[2022-11-29 15:23] VITALS: BP 130/70; PULSE 84; O2SAT 95; BMI 28.8
== END 2022-11-29 15:59 | disposition home or self-care (01) ==
PROVIDERS: Visit Provider Internal Medicine
DX: M35.3 Polymyalgia rheumatica (principal)
CPT/HCPCS: 99213

== ENCOUNTER 2022-12-07 11:55 | Outpatient (AMB) | payer MEDICAID, SELFPAY ==
--- NOTE | 2022-12-07 12:01 | MHC.OFFVIS ---
Intake Vital Signs 12/07/22 12:02 Height 6 ft Weight 215 lb 2.738 oz BMI 29.2 BP 132/80 Blood Pressure Location Lt brachial Position Sitting Pulse 86 Pulse Source Pulse Oximeter Temp 97.8 F Temp Source Skin Pulse Oximetry (%) 96 Intake Visit Reasons: PMR Intake Note: Pt seen today for PMR follow up. Saw PCP last week Dr Ernst. C/o pain in hands, shoulders, knees, top of bl feet. Pain has been for 2 months Market Consultant Required: No Accompanied by: Self / Same As Patient Allergies No Known Allergies Allergy (Verified 12/07/22 12:03) HPI HPI Comments History of Present Illness Details This is a 67-year-old male with PMR who presents for follow-up. Last seen by Kim Dejesus a few months ago. Since 2018 patient started having pain stiffness of his shoulders, hands, wrists, feet. He was diagnosed with rheumatoid arthritis and started on methotrexate, patient took it for 3-6 months without relief. Since then patient has been diagnosed with PMR and has been on varying doses of prednisone, his baseline dose of prednisone is 5 mg and there were times that he was on dexamethasone and other times when he would increase the prednisone dose to treat flares. Most recent flare was a few weeks ago and patient increase the prednisone to 20 mg daily for a few days then tapered it down back to 5 mg daily. When he has a flare he has significant difficulty getting up from bed, difficultly gripping things with his hands. Today he has pain in his hands, wrists, shoulders, feet. He is unaware of any family history of autoimmune rheumatic disease. Denies any history of psoriasis. No history of blood clots. PENDING SALE TO [facility] Medical History (Updated 12/07/22 @ 13:09 by Maggi Saha MD) Benign essential HTN Chronic pain syndrome Failed back syndrome GERD (gastroesophageal reflux disease) Nicotine dependence, unspecified, uncomplicated Osteoarthritis of hands, bilateral Osteoarthritis of neck Postlaminectomy syndrome Primary osteoarthritis, left hand Primary osteoarthritis, right hand Spondylosis of lumbar spine Surgical History CTS (carpal tunnel syndrome) Hx of decompressive lumbar laminectomy Family History Father No problems noted. Mother No problems noted. Social History Housing: House Alcohol intake: current Alcohol intake frequency: a few times a week Alcohol type: beer Patient Tobacco Use Status: Current someday Tobacco user Tobacco use type: Cigar Cigarettes Per Day: 1 e-Cigarette/Vaping Use: Never Used Second Hand Smoke Exposure: Yes service: No Current occupational status: unemployed Cognitive needs: No Hearing needs: No Vision needs: Yes (Glasses) Review of Systems Musc Reports arthralgias and Reports stiffness Skin/Breast Denies rash Physical Exam Vital Signs: Last Vital Signs Temp 97.8 F 12/07/22 12:02 Pulse 86 12/07/22 12:02 BP 132/80 12/07/22 12:02 Pulse Ox 96 12/07/22 12:02 BMI result Body Mass Index 29.2 Const General: cooperative, healthy appearing and comfortable Nutritional Appearance: overweight Orientation/consciousness: patient oriented x3 Limitations: no limitations HEENT Head: Yes normocephalic and Yes atraumatic Mouth: moist mucous membranes Resp Effort & Inspection: normal respiratory effort and able to speak in complete sentences Auscultation: clear to auscultation bilaterally Cardio Rate: regular rate Rhythm: regular rhythm Skin General skin exam: no rashes or lesions noted Neuro General: patient oriented x3 Extrem Other: Bilateral puffy index fingers No wrist tenderness but pain with full flexion and extension Bilateral positive MCP squeeze test No tender PIP is or DIP is Significantly limited range of motion of his shoulders Negative empty can test bilaterally Mild pain with full knee flexion bilaterally Bilateral few MTP joint tenderness and positive MTP squeeze test Results Reviewed Results Reviewed: Laboratory Tests 05/31/21 05/31/21 05/31/21 07:56 07:56 07:56 06/01/21 06/19/22 06/19/22 10:17 09:57 09:57 7.2 05/31/2021 EXAMINATION: XR HAND, RIGHT XR HAND, LEFT CLINICAL INFORMATION: Bilateral pain.? COMPARISON: Radiographs bilateral hands 10/07/2018? TECHNIQUE: Each hand is imaged in 3 views. There are total of 6 views.? FINDINGS: Right: There is no fracture dislocation or destructive process. Ulnar variance is neutral. There is normal bony mineralization. No periarticular demineralization. There is no focal joint narrowing involving the carpus, MCP, and PIP joints. There is mild degenerative change involving the DIP joints similar to prior study. Left: There is no fracture dislocation or destructive process. Ulnar variance is neutral. There is normal bony mineralization. No periarticular demineralization. There is no focal joint narrowing involving the carpus, MCP, and PIP joints. There is mild degenerative change involving the DIP joints similar to prior study. XR/XR hand RT min 3V IMPRESSION: Degenerative changes bilateral DIP joint. No erosive changes.? 07/08/2017 [facility] lab HLA B27 negative, FIDENCIO negative, CCP negative, Lyme negative rheumatoid factor negative, CRP normal, sed rate normal. Assessment & Plan Assessment & Plan (1) Rheumatoid arthritis: Comment: seroneg dx 12/02 MTX 2018 for 3-6 months ineffective PDN throughout Code(s): M06.9 - Rheumatoid arthritis, unspecified Qualifiers: Rheumatoid arthritis location: multiple sites Rheumatoid factor presence: without rheumatoid factor Qualified Code(s): M06.09 - Rheumatoid arthritis without rheumatoid factor, multiple sites Plan: This is a 67-year-old male presents as a new patient for me. He was previously labeled as PMR. Symptoms started around 2018. Patient was evaluated by supervisor knitting and was started on methotrexate, patient took methotrexate for 3-6 months which was not event full. He was then diagnosed with PMR and had been on varying doses of prednisone and dexamethasone. His usual dose of prednisone is 5 mg daily and sometimes increases the dose as needed for flares. Upon evaluation today patient has large and small joint involvement. Clinical picture consistent with seronegative RA. Patient failed methotrexate. Will need to change DMARDs. Discussed risks and benefits of Enbrel. Patient agreed to proceed. Will start prior authorization for Enbrel. Labs before next visit in 2 months. Will check Infectious screening labs Plan I spent 32 minutes reviewing patient's chart, evaluating patient, ordering diagnostic workup, counseling patient and documenting in the chart Orders: Orders Comprehensive Met. Panel 2 Months M06.9 - Rheumatoid arthritis, unspecified C Reactive Protein 2 Months M06.9 - Rheumatoid arthritis, unspecified Complete Blood Count Auto Diff 2 Months M06.9 - Rheumatoid arthritis, unspecified Erythrocyte Sedimentation Rate 2 Months M06.9 - Rheumatoid arthritis, unspecified Hepatitis A,B,C Profile 2 Months Z11.59 - Encounter for screening for other viral diseases T Spot TB 2 Months Z11.7 - Encounter for testing for latent tuberculosis infection Coding Level of Care Code Est Pt Level 4 (02557) Diagnoses Rheumatoid arthritis M06.09 Rheumatoid arthritis location: multiple sites Rheumatoid factor presence: without rheumatoid factor
[2022-12-07 12:02] VITALS: BP 132/80; PULSE 86; TEMP 36.6; O2SAT 96; BMI 29.2
== END 2022-12-07 13:24 | disposition home or self-care (01) ==
PROVIDERS: PCP Internal Medicine; Visit Provider Student in an Organized Health Care Education/Training Program
DX: M06.09 Rheumatoid arthritis without rheumatoid factor, multiple sites (principal)
CPT/HCPCS: 99214

== ENCOUNTER → 2022-12-07 11:55 | Outpatient (BNVA) | payer MEDICAID, SELFPAY | PROVIDERS: PCP Internal Medicine; Visit Provider Student in an Organized Health Care Education/Training Program | DX: M06.09 Rheumatoid arthritis without rheumatoid factor, multiple sites (principal) | CPT/HCPCS: 99212 ==

== ENCOUNTER → 2023-01-31 07:58 | Outpatient (BNVA) | payer MEDICAID, SELFPAY | PROVIDERS: PCP Internal Medicine; Visit Provider Student in an Organized Health Care Education/Training Program ==

== ENCOUNTER 2023-06-04 10:39 | Outpatient (REF) | payer MEDICARE, OTHER, SELFPAY ==
--- NOTE | ~2023-06-04 | XR_ITS ---
EXAMINATION: XR KNEE, RIGHT XR KNEE AP STANDING CLINICAL INFORMATION: Pain. COMPARISON: None available. TECHNIQUE: Four views of the right knee. AP bilateral standing view of the knees was obtained. FINDINGS: The lateral, medial and patellofemoral joint space compartments of the right knee are well-maintained. No fracture, dislocation or joint effusion is seen. There are 2 small loose bodies within the posterior joint space. There are femoral and popliteal atherosclerotic calcifications. The lateral and medial joint space compartments of the left knee are well-maintained. No fracture or dislocation is seen. There are femoral atherosclerotic calcifications. No significant varus or valgus configuration is seen bilaterally. XR/XR knee RT 2V IMPRESSION: 1. The joint space compartments of the bilateral knees are well-maintained. 2. No fracture, dislocation or joint effusion is seen. 3. Small loose bodies are noted within the posterior right joint space on the lateral view.
--- NOTE | ~2023-06-04 | XR_ITS ---
EXAMINATION: XR KNEE, RIGHT XR KNEE AP STANDING CLINICAL INFORMATION: Pain. COMPARISON: None available. TECHNIQUE: Four views of the right knee. AP bilateral standing view of the knees was obtained. FINDINGS: The lateral, medial and patellofemoral joint space compartments of the right knee are well-maintained. No fracture, dislocation or joint effusion is seen. There are 2 small loose bodies within the posterior joint space. There are femoral and popliteal atherosclerotic calcifications. The lateral and medial joint space compartments of the left knee are well-maintained. No fracture or dislocation is seen. There are femoral atherosclerotic calcifications. No significant varus or valgus configuration is seen bilaterally. XR/XR knee standing BI IMPRESSION: 1. The joint space compartments of the bilateral knees are well-maintained. 2. No fracture, dislocation or joint effusion is seen. 3. Small loose bodies are noted within the posterior right joint space on the lateral view.
== END 2023-06-04 10:40 | disposition home or self-care (01) ==
LOC: HO.HOSX 10:39
PROVIDERS: Visit Provider Physician Assistant
DX: M25.561 Pain in right knee (principal); M17.11 Unilateral primary osteoarthritis, right knee
CPT/HCPCS: 20610; 73560; 73565; 99212; J1040

== ENCOUNTER 2023-06-04 12:44 | Outpatient (AMB) | payer SELFPAY ==
[2023-06-04 12:52] VITALS: BMI 29.2
--- NOTE | 2023-06-04 12:52 | MHC.OFFVIS ---
Intake Vital Signs 06/04/23 12:52 Height 6 ft Weight 215 lb BMI 29.2 Intake Visit Reasons: Newprob- Rt knee pain/ swollen/ stiff Intake Note: Severino is a 67 year old male who presents today for a evaluation of his right knee pain. Patient reports ongoing pain for a month. 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 Having some swelling, tightness and stiffness per patient. Pain is more on the medial aspect of the knee and it goes behind his knee. He states that his pain is worse when using the stairs. Allergies No Known Allergies Allergy (Verified 06/04/23 12:59) HPI Newprob- Rt knee pain/ swollen/ stiff HPI Details 67-year-old male who presents in the office today for an evaluation of right knee pain, stiffness, and edema. The patient reports ongoing pain for a month, since 04/2023. 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 He confirms having edema in the right knee with tightness and stiffness. He claims his pain is along the medial aspect that radiates to the back side of the knee. He reports increased pain with ambulating stairs. [facility] Medical History (Updated 06/04/23 @ 13:25 by Sherie Turner) Osteoarthritis of hands, bilateral GERD (gastroesophageal reflux disease) Chronic pain syndrome Postlaminectomy syndrome Spondylosis of lumbar spine Primary osteoarthritis, left hand Primary osteoarthritis, right hand Osteoarthritis of neck Nicotine dependence, unspecified, uncomplicated Failed back syndrome Benign essential HTN Surgical History CTS (carpal tunnel syndrome) Hx of decompressive lumbar laminectomy Family History Father No problems noted. Mother No problems noted. Social History Housing: House Alcohol intake: current Alcohol intake frequency: a few times a week Alcohol type: beer Patient Tobacco Use Status: Current someday Tobacco user Tobacco use type: Cigar Cigarettes Per Day: 1 e-Cigarette/Vaping Use: Never Used Second Hand Smoke Exposure: Yes service: No Current occupational status: unemployed Cognitive needs: No Hearing needs: No Vision needs: Yes (Glasses) Review of Systems Const All systems reviewed & are unremarkable except as noted in HPI and below Physical Exam Vital Signs: BMI result Body Mass Index 29.2 Const General: cooperative and no acute distress Orientation/consciousness: patient oriented x3 Resp Effort & Inspection: normal respiratory effort and able to speak in complete sentences Cardio Peripheral pulses: Peripheral pulses 2+ throughout Skin General skin exam: no rashes or lesions noted Neuro General: patient oriented x3 Extrem Other: Right knee: Normal to inspection. No ecchymosis, erythema, or joint effusion. No tenderness to palpation to the lateral joint line. Mild tenderness to palpation at the medial joint line. ROM is 0-90 degrees. Negative Abby's. Negative anterior drawer. NVI. Office Procedures Joint Injection/Drain Joint Injection/Drain Primary Site: right knee Prep: site was prepped using aseptic technique, ethochloride spray was applied and injection warnings given Injected: 80 mg of, DepoMedrol, with 8 mL of (2% plain lido ) and in the joint Approach Used: anterolateral Procedure: The patient tolerated the procedure well, but had some pain with the injection and there was some relief with the local anesthesia Coding 88314 - Large joint Procedure code (CPT) selection complete Assessment & Plan Assessment & Plan (1) Osteoarthritis of right knee: Code(s): M17.11 - Unilateral primary osteoarthritis, right knee Plan Mr. Willson is a 67-year-old male who presents in the office today for an evaluation of right knee pain, stiffness, and edema. The patient reports ongoing pain for a month, since 04/2023. 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 He confirms having edema in the right knee with tightness and stiffness. He claims his pain is along the medial aspect that radiates to the back side of the knee. He reports increased pain with ambulating stairs. Right knee: The patient was offered a cortisone injection in the right knee with 80 mg of DepoMedrol. The patient was explained the risk, benefits, and alternatives to receiving this injection. After receiving consent for the injection, the patient had the procedure done while in office today. The patient tolerated the procedure well with no complications. Follow up will be PRN, or sooner if needed. Bilateral shoulders: The patient would like to seen for bilateral shoulder pain, which he has been seen for in the past. I have offered him an appointment for Saturday for a formal evaluation and planning of treatment. Follow up will be on 06/07/2023, or sooner if needed. X-rays of the right knee which were obtained while in the office today and were reviewed by me, Adriana Eckert PA-C, revealed mild to moderated arthritic changes of the right knee. Orders: Orders XR knee RT 2V Today M25.569 - Pain in unspecified knee XR knee standing BI Today M25.569 - Pain in unspecified knee Patient Instructions: Scribed for Adriana Eckert PA-C by Sherie Turner medical housekeeper, on 06/04/2023 at 12:46 pm, EST. Coding Level of Care Code Est Pt Level 4 (00871) Diagnoses Osteoarthritis of right knee M17.11 CPT Codes Coding - 35293 Large joint: 19560 - Large joint ([id number])
== END 2023-06-04 13:29 | disposition home or self-care (01) ==
PROVIDERS: PCP Internal Medicine; Visit Provider Physician Assistant
DX: M17.11 Unilateral primary osteoarthritis, right knee (principal)
CPT/HCPCS: 20610; 99213

== ENCOUNTER 2023-06-07 07:36 | Outpatient (REF) | payer MEDICARE, OTHER, SELFPAY ==
--- NOTE | ~2023-06-07 | XR_ITS ---
EXAMINATION: XR SHOULDER, LEFT CLINICAL INFORMATION: Reason for Exam M25.519 - Pain in unspecified shoulder COMPARISON: None TECHNIQUE: Three views of the shoulder. FINDINGS: No acute fracture or dislocation. Moderate degenerative changes of the shoulder with loss of glenohumeral joint space and glenohumeral acromioclavicular osteophytes.. Soft tissues are unremarkable. XR/XR shoulder LT min 2V IMPRESSION: Moderate degenerative changes of the shoulder.
--- NOTE | ~2023-06-07 | XR_ITS ---
EXAMINATION: XR SHOULDER, RIGHT CLINICAL INFORMATION: Reason for Exam M25.519 - Pain in unspecified shoulder COMPARISON: Shoulder radiograph 04/18/2021 TECHNIQUE: Three views of the shoulder. FINDINGS: No acute fracture or dislocation. Moderate degenerative changes of the shoulder with loss of acromioclavicular joint space and glenohumeral and acromioclavicular osteophytes. Soft tissues are unremarkable. XR/XR shoulder RT min 2V IMPRESSION: Moderate degenerative changes of the shoulder similar to prior.
== END 2023-06-07 07:37 | disposition home or self-care (01) ==
LOC: HO.HOSX 07:36
PROVIDERS: Visit Provider Physician Assistant
DX: M19.011 Primary osteoarthritis, right shoulder (principal); M19.012 Primary osteoarthritis, left shoulder
CPT/HCPCS: 20610; 73030; 99212; J1040

== ENCOUNTER 2023-06-07 09:09 | Outpatient (AMB) | payer SELFPAY ==
--- NOTE | 2023-06-07 09:18 | A.OFFVIS_ITS ---
Intake Intake Visit Reasons: OV - B/L shoulder pain Intake Note: Severino is a 67 year old right hand dominant male who presnets today for a follow up of his bilateral shoulder pain. Patient reports that he would like to have both of the shoulders injected Allergies No Known Allergies Allergy (Verified 06/04/23 12:59) HPI OV - B/L shoulder pain HPI Details 67-year-old right hand dominant who pres ents in the office today for an evaluation of bilateral shoulder pain. I last saw the patient for an evaluation of the bilateral shoulders on 06/19/2021, at that time he reported the left shoulder was worse then the right shoulder and stated he had left upper extremity numbness. An MRI of the C-spine was obtained on 05/02/2021 which reveals cervical spinal stenosis. He was referred to Pain Management and his neurosurgeon stated that he would likely have to undergo cortisone injections in order to proceed with any surgical intervention. He requested cortisone injection, but this was deferred to Pain Management. While in the office today the patient would like to request bilateral shoulder cortisone injections. [facility] Medical History (Updated 06/07/23 @ 09:36 by Sherie Turner) Osteoarthritis of hands, bilateral GERD (gastroesophageal reflux disease) Chronic pain syndrome Postlaminectomy syndrome Spondylosis of lumbar spine Primary osteoarthritis, left hand Primary osteoarthritis, right hand Osteoarthritis of neck Nicotine dependence, unspecified, uncomplicated Failed back syndrome Benign essential HTN Surgical History CTS (carpal tunnel syndrome) Hx of decompressive lumbar laminectomy Family History Father No problems noted. Mother No problems noted. Social History Housing: House Alcohol intake: current Alcohol intake frequency: a few times a week Alcohol type: beer Patient Tobacco Use Status: Current someday Tobacco user Tobacco use type: Cigar Cigarettes Per Day: 1 e-Cigarette/Vaping Use: Never Used Second Hand Smoke Exposure: Yes service: No Current occupational status: unemployed Cognitive needs: No Hearing needs: No Vision needs: Yes (Glasses) Review of Systems Const All systems reviewed & are unremarkable except as noted in HPI and below Physical Exam Const General: cooperative, healthy appearing and no acute distress Resp Effort & Inspection: normal respiratory effort and able to speak in complete sentences Cardio Rate: regular rate Peripheral pulses: Peripheral pulses 2+ throughout GI Palpation (GI): Soft to palpation Skin Lesions: no lesions Rashes: no rashes Extrem Other: Bilateral shoulders: Able to perform full ROM with pain. Pain with cross-body reach. 4/5 strength with empty can. Negative drop arm. NVI. Office Procedures Joint Injection/Drain Joint Injection/Drain Primary Site: right shoulder Secondary Site: left shoulder Prep: site was prepped using aseptic technique, ethochloride spray was applied and injection warnings given Injected: 80 mg of, DepoMedrol, with 8 mL of (2% plain lido ) and in the subcromial space Approach Used: posterolateral Procedure: The patient tolerated the procedure well, but had some pain with the injection and there was some relief with the local anesthesia Coding 74899 - Large joint Procedure code (CPT) selection complete Assessment & Plan Assessment & Plan (1) Osteoarthritis of right shoulder: Code(s): M19.011 - Primary osteoarthritis, right shoulder (2) Osteoarthritis of left shoulder: Code(s): M19.012 - Primary osteoarthritis, left shoulder Plan Mr. Willson is a 67-year-old right hand dominant who presents in the office today for an evaluation of bilateral shoulder pain. I last saw the patient for an evaluation of the bilateral shoulders on 06/19/2021, at that time he reported the left shoulder was worse then the right shoulder and stated he had left upper extremity numbness. An MRI of the C-spine was obtained on 05/02/2021 which reveals cervical spinal stenosis. He was referred to Pain Management and his neurosurgeon stated that he would likely have to undergo cortisone injections in order to proceed with any surgical intervention. He requested cortisone injection, but this was deferred to Pain Management. While in the office today the patient would like to request bilateral shoulder cortisone injections. The patient was offered a cortisone injection in the bilateral shoulders with 80 mg of DepoMedrol. The patient was explained the risk, benefits, and alternatives to receiving this injection. After receiving consent for the injection, the patient had the procedure done while in office today. The patient tolerated the procedure well with no complications. Follow up will be PRN, or sooner if needed. X-rays of the bilateral shoulders which were obtained while in the office today and were reviewed by me, Adriana Eckert PA-C, revealed bilateral shoulders osteoarthritis. Orders: Orders XR shoulder RT min 2V Today M25.519 - Pain in unspecified shoulder XR shoulder LT min 2V Today M25.519 - Pain in unspecified shoulder Patient Instructions: Scribed for Adriana Eckert PA-C by Sherie Turner curator medical museum, on 06/07/2023 at 9:14 am, EST. Coding Level of Care Code Est Pt Level 4 (12350) Diagnoses Osteoarthritis of right shoulder M19.011 Osteoarthritis of left shoulder M19.012 CPT Codes Coding - 56961 Large joint: 51306 - Large joint ([id number])
== END 2023-06-07 09:41 | disposition home or self-care (01) ==
PROVIDERS: PCP Internal Medicine; Visit Provider Physician Assistant
DX: M19.011 Primary osteoarthritis, right shoulder (principal); M19.012 Primary osteoarthritis, left shoulder
CPT/HCPCS: 20610; 99214

== ENCOUNTER 2023-08-22 09:29 | Outpatient (AMB) | payer MEDICARE, MEDICAID, SELFPAY ==
--- NOTE | 2023-08-22 09:39 | A.OFFVIS_ITS ---
Intake Vital Signs 08/22/23 09:40 Height 6 ft Weight 215 lb BMI 29.2 Handedness Right Intake Visit Reasons: OV- B/L Shoulder INJ 06/07/23 Intake Note: Severino is a 68 year old right hand dominant male who presents today for a follow up of his bilateral shoulder pain, last injections 06/07/23. Patient reports his last injections gave him 3 months of relief, however about 2 weeks ago his pain came back. He states that his knee has started to bother him as well and was wondering about getting an injection in his knee too. Allergies No Known Allergies Allergy (Verified 08/22/23 09:40) HPI OV- B/L Shoulder INJ 06/07/23 HPI Details 68-year-old right hand dominant male who presents in the office today for a follow up of bilateral shoulder osteoarthritis. I last saw the patient in the office on 06/07/2023, when he was given cortisone injections in the bilateral shoulders. While in the office today the patient reported his last injection gave him about 3 months of relief. However, about 2 weeks ago his pain returned. Patient also reports pain in his (unspecified) knee. He is interested in a cortisone injection in this as well. [facility] Medical History (Updated 08/22/23 @ 09:45 by Sherie Turner) Osteoarthritis of hands, bilateral GERD (gastroesophageal reflux disease) Chronic pain syndrome Postlaminectomy syndrome Spondylosis of lumbar spine Primary osteoarthritis, left hand Primary osteoarthritis, right hand Osteoarthritis of neck Nicotine dependence, unspecified, uncomplicated Failed back syndrome Benign essential HTN Surgical History CTS (carpal tunnel syndrome) Hx of decompressive lumbar laminectomy Family History Father No problems noted. Mother No problems noted. Social History Housing: House Alcohol intake: current Alcohol intake frequency: a few times a week Alcohol type: beer Patient Tobacco Use Status: Current someday Tobacco user Tobacco use type: Cigar Cigarettes Per Day: 1 e-Cigarette/Vaping Use: Never Used Second Hand Smoke Exposure: Yes service: No Current occupational status: unemployed Cognitive needs: No Hearing needs: No Vision needs: Yes (Glasses) Review of Systems Const All systems reviewed & are unremarkable except as noted in HPI and below Physical Exam Vital Signs: BMI result Body Mass Index 29.2 Const General: cooperative, healthy appearing and no acute distress Resp Effort & Inspection: normal respiratory effort and able to speak in complete sentences Cardio Rate: regular rate Peripheral pulses: Peripheral pulses 2+ throughout GI Palpation (GI): Soft to palpation Skin Lesions: no lesions Rashes: no rashes Extrem Other: Bilateral shoulders: Able to perform full ROM with pain. Pain with cross-body reach. 4/5 strength with empty can. Negative drop arm. NVI. Office Procedures Joint Injection/Drain Joint Injection/Drain Primary Site: right shoulder Secondary Site: left shoulder Prep: site was prepped using aseptic technique, ethochloride spray was applied and injection warnings given Injected: 80 mg of, DepoMedrol, with 8 mL of (2% plain lido ) and in the subcromial space Approach Used: posterolateral Procedure: The patient tolerated the procedure well, but had some pain with the injection and there was some relief with the local anesthesia Coding 91753 - Large joint Procedure code (CPT) selection complete Assessment & Plan Assessment & Plan (1) Osteoarthritis of right shoulder: Code(s): M19.011 - Primary osteoarthritis, right shoulder Qualifiers: Osteoarthritis type: unspecified Qualified Code(s): M19.011 - Primary osteoarthritis, right shoulder (2) Osteoarthritis of left shoulder: Code(s): M19.012 - Primary osteoarthritis, left shoulder Qualifiers: Osteoarthritis type: unspecified Qualified Code(s): M19.012 - Primary osteoarthritis, left shoulder Plan Mr. Willson is a 68-year-old right hand dominant male who presents in the office today for a follow up of bilateral shoulder osteoarthritis. I last saw the patient in the office on 06/07/2023, when he was given cortisone injections in the bilateral shoulders. While in the office today the patient reported his last injection gave him about 3 months of relief. However, about 2 weeks ago his pain returned. Patient also reports pain in his (unspecified) knee. He is interested in a cortisone injection in this as well. The patient was offered a cortisone injection in the bilateral shoulders with 80mg of DepoMedrol. The patient was explained the risk, benefits, and alternatives to receiving this injection. After receiving consent for the injection, the patient had the procedure done while in the office today. The patient tolerated the procedure well with no complications. Follow up will be PRN, or sooner if needed. The patient would like to request an appointment for evaluation of his knee. This was scheduled while in the office today. Patient Instructions: Scribed by Sherie Turner medical records manager, for Adriana Babar MARSHALL on 08/22/2023 at 9:38 am,EST. Coding Level of Care Code Est Pt Level 3 (72015) Diagnoses Osteoarthritis of right shoulder, unspecified osteoarthritis type M19.011 Osteoarthritis type: unspecified Osteoarthritis of left shoulder, unspecified osteoarthritis type M19.012 Osteoarthritis type: unspecified CPT Codes Coding - 75940 Large joint: 21236 - Large joint ([id number])
[2023-08-22 09:40] VITALS: BMI 29.2
== END 2023-08-22 09:50 | disposition home or self-care (01) ==
PROVIDERS: PCP Internal Medicine; Visit Provider Physician Assistant
DX: M19.011 Primary osteoarthritis, right shoulder (principal); M19.012 Primary osteoarthritis, left shoulder
CPT/HCPCS: 20610; 99213

== ENCOUNTER → 2023-08-22 09:29 | Outpatient (BNVA) | payer MEDICARE, OTHER, SELFPAY | PROVIDERS: PCP Internal Medicine; Visit Provider Physician Assistant | DX: M19.011 Primary osteoarthritis, right shoulder (principal); M19.012 Primary osteoarthritis, left shoulder; M25.569 Pain in unspecified knee | CPT/HCPCS: 20610; 99212; J1010; J1040 ==

== ENCOUNTER 2023-08-30 10:35 | Outpatient (AMB) | payer MEDICARE, MEDICAID, SELFPAY ==
[2023-08-30 10:49] VITALS: BMI 29.2
--- NOTE | 2023-08-30 10:49 | A.OFFVIS_ITS ---
Vital Signs 08/30/23 10:49 Height 6 ft Weight 215 lb BMI 29.2 Intake Visit Reasons: OV- Rt Knee INJ 06/04/23 Intake Note: Severino is a 68 year old male who presents today for a right knee injection. Last injection done 06/04/23 and was helpful until about 2 weeks amber. Pain is felt on the medial aspect of the knee. Reports history of with Dr. Levi due to the same symptoms he is having now . He would like to repeat injection today Allergies No Known Allergies Allergy (Verified 08/22/23 09:40) HPI HPI OV- Rt Knee INJ 06/04/23: Details: 68-year-old male who presents in the office today for a follow up of right knee pain. I last saw the patient for this complaint on 06/04/2023 when he was given a cortisone injection. Patient states the cortisone injection gave him relief until about 2 weeks ago. He reports his pain is on the medial aspect of the right knee. He is interested in repeat the cortisone injection today. Patient has a surgical history of right knee arthroscopy with Dr. Levi for the same symptoms he is having now. [facility] Medical History (Updated 08/30/23 @ 10:58 by Sherie Turner) Osteoarthritis of hands, bilateral GERD (gastroesophageal reflux disease) Chronic pain syndrome Postlaminectomy syndrome Spondylosis of lumbar spine Primary osteoarthritis, left hand Primary osteoarthritis, right hand Osteoarthritis of neck Nicotine dependence, unspecified, uncomplicated Failed back syndrome Benign essential HTN Surgical History CTS (carpal tunnel syndrome) Hx of decompressive lumbar laminectomy Family History Father No problems noted. Mother No problems noted. Social History Housing: House Alcohol intake: current Alcohol intake frequency: a few times a week Alcohol type: beer Patient Tobacco Use Status: Current someday Tobacco user Tobacco use type: Cigar Cigarettes Per Day: 1 e-Cigarette/Vaping Use: Never Used Second Hand Smoke Exposure: Yes service: No Current occupational status: unemployed Cognitive needs: No Hearing needs: No Vision needs: Yes (Glasses) Review of Systems Const All systems reviewed & are unremarkable except as noted in HPI and below Physical Exam Vital Signs: BMI result Body Mass Index 29.2 Const General: cooperative, healthy appearing and no acute distress Orientation/consciousness: patient oriented x3 Resp Effort & Inspection: normal respiratory effort and able to speak in complete sentences Cardio Rate: regular rate Peripheral pulses: Peripheral pulses 2+ throughout GI Palpation (GI): Soft to palpation Skin General skin exam: no rashes or lesions noted Lesions: no lesions Rashes: no rashes Neuro General: patient oriented x3 Extrem Other: Right knee: Normal to inspection. No ecchymosis, erythema, or joint effusion. No tenderness to palpation to the lateral joint line. Mild tenderness to palpation at the medial joint line. ROM is 0-90 degrees. Negative Abby's. Negative anterior drawer. NVI. Office Procedures Joint Injection/Drain Joint Injection/Drain Primary Site: right knee Prep: site was prepped using aseptic technique, ethochloride spray was applied and injection warnings given Injected: 80 mg of, DepoMedrol, with 8 mL of (2% plain lido ) and in the joint Approach Used: anterolateral Procedure: The patient tolerated the procedure well, but had some pain with the injection and there was some relief with the local anesthesia Coding 11757 - Large joint Procedure code (CPT) selection complete Assessment & Plan Assessment & Plan (1) Osteoarthritis of right knee: Code(s): M17.11 - Unilateral primary osteoarthritis, right knee Category: Medical Qualifiers: Osteoarthritis type: unspecified Qualified Code(s): M17.11 - Unilateral primary osteoarthritis, right knee Plan Mr. Willson is a 68-year-old male who presents in the office today for a follow up of right knee pain. I last saw the patient for this complaint on 06/04/2023 when he was given a cortisone injection. Patient states the cortisone injection gave him relief until about 2 weeks ago. He reports his pain is on the medial aspect of the right knee. He is interested in repeat the cortisone injection today. Patient has a surgical history of right knee arthroscopy with Dr. Levi for the same symptoms he is having now. The patient was offered a cortisone injection in the right knee with 80 mg of DepoMedrol. The patient was explained the risk, benefits, and alternatives to receiving this injection. After receiving consent for the injection, the patient had the procedure done while in the office today. The patient tolerated the procedure well with no complications. Follow up will be PRN, or sooner if needed. Patient Instructions: Scribed by Sherie Turner medical affairs leader, for Adriana Eckert PA-C on 08/30/2023 at 10:49 am, EST.
== END 2023-08-30 11:18 | disposition home or self-care (01) ==
PROVIDERS: PCP Internal Medicine; Visit Provider Physician Assistant
DX: M17.11 Unilateral primary osteoarthritis, right knee (principal)
CPT/HCPCS: 20610

== ENCOUNTER → 2023-08-30 10:35 | Outpatient (BNVA) | payer MEDICARE, OTHER, SELFPAY | PROVIDERS: PCP Internal Medicine; Visit Provider Physician Assistant | DX: M17.11 Unilateral primary osteoarthritis, right knee (principal) | CPT/HCPCS: 20610; J1010 ==

== ENCOUNTER 2023-09-12 14:10 | Outpatient (AMB) | payer MEDICARE, SELFPAY ==
[2023-09-12 14:12] VITALS: BP 138/96; PULSE 83; O2SAT 96; BMI 30.6
--- NOTE | 2023-09-12 14:12 | A.OFFPC_ITS ---
Vital Signs 09/12/23 14:12 Height 6 ft Weight 226 lb BMI 30.6 BP 138/96 H Blood Pressure Location Lt brachial Position Sitting Pulse 83 Pulse Source Pulse Oximeter Pulse Oximetry (%) 96 Oxygen Delivery Method Room Air Intake Visit Reasons: 3mth f/u Medications Intake Note: Patient is here to follow up on 3 months [employer]rimp [employer] Required: No Allergies No Known Allergies Allergy (Verified 09/24/23 06:25) Medication List - Last Reconciled 09/24/23 by Chris Ernst MD albuterol sulfate 90 mcg/actuation (Ventolin HFA) 1 inh inhalation QID PRN meloxicam 15 mg PO DAILY omeprazole 40 mg PO DAILY valsartan 40 mg PO BID Tobacco use date assessed: 09/12/23 Fall risk assessment: No Falls in past year Last assessed Fall Risk: 09/12/23 Dental Screening Dental Screen Date: 09/12/23 Did you have a dental visit in the last 12 months?: No Did you have a dental problem in the last 6 months where you did not have access to dental care?: No HPI 3mth f/u Medications HPI Details 68 yr old male presents to the office to discuss his chronic medical conditions. Compliant with medications, Continues to have chronic back pains. Able to function and do all ADL's. [facility] Medical History (Updated 08/30/23 @ 10:58 by Sherie Turner) Osteoarthritis of hands, bilateral GERD (gastroesophageal reflux disease) Chronic pain syndrome Postlaminectomy syndrome Spondylosis of lumbar spine Primary osteoarthritis, left hand Primary osteoarthritis, right hand Osteoarthritis of neck Nicotine dependence, unspecified, uncomplicated Failed back syndrome Benign essential HTN Surgical History CTS (carpal tunnel syndrome) Hx of decompressive lumbar laminectomy Family History Father No problems noted. Mother No problems noted. Social History Housing: House Alcohol intake: current Alcohol intake frequency: a few times a week Alcohol type: beer Patient Tobacco Use Status: Current someday Tobacco user Tobacco use type: Cigar Cigarettes Per Day: 1 e-Cigarette/Vaping Use: Never Used Second Hand Smoke Exposure: Yes service: No Current occupational status: unemployed Cognitive needs: No Hearing needs: No Vision needs: Yes (Glasses) Questionnaire PHQ-9 Over the last 2 weeks, how often have you been bothered by any of the following problems? 1. Little interest or pleasure in doing things: not at all 2. Feeling down, depressed, or hopeless: not at all 3. Trouble falling or staying asleep, or sleeping too much: not at all 4. Feeling tired or having little energy: not at all 5. Poor appetite or overeating: not at all 6. Feeling bad about yourself - or that you are a failure or have let yourself or your family down: not at all 7. Trouble concentrating on things, such as reading the newspaper or watching television: not at all 8. Moving or speaking so slowly that other people could have noticed. Or the opposite - being so fidgety or restless that you have been moving around a lot more than usual: not at all 9. Thoughts that you would be better off or of hurting yourself in some way: not at all Total score: 0 Depression Screening Interpretation: Negative Depression Screening Done: Yes Source: Developed by Drs. Gustavo Marques, Edna Lam, Placido Sims and colleagues, with an educational po from [email or web address]. Thrive Questionnaire Date Thrive assessed: 09/12/23 AUDIT C Alcohol Use Questionnaire (AUDIT-C) 1. How often do you have a drink containing alcohol?: 2-3 times a week 2. How many drinks containing alcohol do you have on a typical day when you are drinking?: 1 or 2 3. How often do you have six or more drinks on one occasion?: Never Total Score: 3 PRINCE-7 AMB Questionnaire PRINCE-7 Date PRINCE - 7 assessed: 09/12/23 Feeling nervous, anxious, or on edge: 0 = Not at all Not being able to stop or control worryin = Not at all Worrying too much about different things: 0 = Not at all Trouble relaxin = Not at all Being so restless that it is hard to sit still: 0 = Not at all Becoming easily annoyed or irritable: 0 = Not at all Feeling afraid as if something awful might happen: 0 = Not at all Total PRINCE-7 score (0-4 normal; 5-9 mild; 10-14 moderate; 15-21 severe): 0 Source: Developed by Drs. Gustavo Marques, Edna Lam, Placido Sims and colleagues, with an educational po from [email or web address]. PRINCE-7 Assessment Billing PRINCE-7 Assessment Tool: PRINCE-7 Assessment 50915 Physical exam (Primary Care) Vital Signs: Last Vital Signs Pulse 83 09/12/23 14:12 BP 138/96 H 09/12/23 14:12 Pulse Ox 96 09/12/23 14:12 Oxygen Delivery Method Room Air 09/12/23 14:12 Care Plan Goal for BP management: BP in range. BMI result Body Mass Index 30.6 Tobacco/Smoking Status: Tobacco use Status Tobacco use date assessed 09/12/23 09/12/23 14:13 Patient Tobacco Use Status Current someday Tobacco 09/12/23 14:13 Tobacco use type Cigar 09/12/23 14:13 e-Cigarette/Vaping Use Never Used 09/12/23 14:13 Are you ready to quit: No PHQ-9: PHQ-9 Score PHQ-9: Total score 0 09/20/23 14:34 Depression Screening Interpretation: Negative Thrive Assessment: Date of Thrive Assessment Date Thrive assessed 09/12/23 09/12/23 14:13 Const General: cooperative and healthy appearing Nutritional Appearance: well nourished Orientation/consciousness: patient oriented x3 Limitations: no limitations HENMT Head: Yes normal to inspection Eyes General: appearance normal, both eyes and all related structures Neck Neck: Yes normal visual inspection Chest Chest palpation & inspection: normal palpation of entire chest wall Resp Effort & Inspection: normal respiratory effort Neuro General: patient oriented x3 Assessment and Plan Assessment & Plan (1) Benign essential HTN: Code(s): I10 - Essential (primary) hypertension Plan: Blood pressure is in range (2) Polymyalgia rheumatica: Code(s): M35.3 - Polymyalgia rheumatica Plan: Meloxicam started for pain control. (3) Rheumatoid arthritis: Comment: seroneg dx 12/02 MTX 2017 for 3-6 months ineffective PDN throughout Code(s): M06.9 - Rheumatoid arthritis, unspecified Qualifiers: Rheumatoid arthritis location: multiple sites Rheumatoid factor presence: without rheumatoid factor Qualified Code(s): M06.09 - Rheumatoid arthritis without rheumatoid factor, multiple sites (4) Osteoarthritis of hands, bilateral: Code(s): M19.041 - Primary osteoarthritis, right hand; M19.042 - Primary osteoarthritis, left hand (5) GERD (gastroesophageal reflux disease): Code(s): K21.9 - Gastro-esophageal reflux disease without esophagitis Plan: Use PPI as needed Coding Level of Care Code Est Pt Level 3 (74469) Diagnoses Benign essential HTN I10 Polymyalgia rheumatica M35.3 Rheumatoid arthritis of multiple sites with negative rheumatoid factor M06.09 Rheumatoid arthritis location: multiple sites Rheumatoid factor presence: without rheumatoid factor Osteoarthritis of hands, bilateral M19.041; M19.042 GERD (gastroesophageal reflux disease) K21.9 Additional Codes PRINCE-7 Assessment Billing - PRINCE-7 Assessment Tool: PRINCE-7 Assessment 02216 ([id number])
== END 2023-09-12 15:48 | disposition home or self-care (01) ==
PROVIDERS: PCP Internal Medicine; Visit Provider Internal Medicine
DX: I10 Essential (primary) hypertension (principal); M35.3 Polymyalgia rheumatica; M06.09 Rheumatoid arthritis without rheumatoid factor, multiple sites; M19.041 Primary osteoarthritis, right hand; M19.042 Primary osteoarthritis, left hand; K21.9 Gastro-esophageal reflux disease without esophagitis
CPT/HCPCS: 99213

== ENCOUNTER 2023-10-25 09:37 | Outpatient (REF) | payer MEDICARE, SELFPAY ==
--- NOTE | ~2023-10-25 | XR_ITS ---
EXAMINATION: XR chest 2V CLINICAL INFORMATION: Reason for Exam R05.9 - Cough, unspecified COMPARISON: 10/07/2018 TECHNIQUE: 2 views of the chest FINDINGS: Clear lungs. No pneumothorax or pleural effusion. Unchanged cardiomediastinal silhouette. XR/XR chest 2V Impression: * Clear lungs.
== END 2023-10-25 09:38 | disposition home or self-care (01) ==
LOC: HO.XRAY 09:37
PROVIDERS: PCP Internal Medicine; Visit Provider Internal Medicine
DX: R05.9 Cough, unspecified (principal)
CPT/HCPCS: 71046

== ENCOUNTER 2023-11-19 08:03 | Outpatient (AMB) | payer MEDICARE, MEDICAID, SELFPAY ==
--- NOTE | 2023-11-19 08:04 | MHC.OFFVIS ---
Vital Signs 11/19/23 08:09 Height 6 ft Weight 213 lb 2.992 oz BMI 28.9 BP 134/82 Blood Pressure Location Rt brachial Position Sitting Pulse 80 Pulse Source Pulse Oximeter Pulse Oximetry (%) 100 Oxygen Delivery Method Room Air Intake Visit Reasons: PMR/shoulder& hip pain Intake Note: Patient presents for PMR/shoulder and hip pain. Everything hurts and especially hands. Allergies No Known Allergies Allergy (Verified 11/19/23 08:08) Medication List - Last Reconciled 11/19/23 by Maggi Saha MD albuterol sulfate 90 mcg/actuation (Ventolin HFA) 1 inh inhalation QID PRN cyclobenzaprine 10 mg PO BEDTIME omeprazole 40 mg PO DAILY oxycodone 5 mg PO DAILY PRN prednisone 10 mg (2 x 5 mg) PO DAILY valsartan 40 mg PO BID HPI Comments Details: This is a 68-year-old male with seronegative RA who presents for follow-up. He was last seen by me 11/2022. At that time Enbrel was started. Patient took it for approximately 5 months. Regularly weekly. He states that he did not feel any relief. He stopped it after taking it for 5 months. He had discontinued prednisone around fall/winter of 2022. Starting August 9023 he started having more shoulder knee pain as well as pain in the hands. He was evaluated by Orthopedics and received right knee, both shoulders steroid injection 06/01/2023 with relief, the same injections were repeated 08/2023 without much relief. He did not have any side effects with Enbrel. He is having diffuse pain and stiffness of his neck, shoulders, hips, knees, morning stiffness of his hands lasts a few hours. He is now back on prednisone. He takes prednisone 10 mg daily. Initial history: This is a 67-year-old male with PMR who presents for follow-up. Last seen by Kim Dejesus a few months ago. Since 2018 patient started having pain stiffness of his shoulders, hands, wrists, feet. He was diagnosed with rheumatoid arthritis and started on methotrexate, patient took it for 3-6 months without relief. Since then patient has been diagnosed with PMR and has been on varying doses of prednisone, his baseline dose of prednisone is 5 mg and there were times that he was on dexamethasone and other times when he would increase the prednisone dose to treat flares. Most recent flare was a few weeks ago and patient increase the prednisone to 20 mg daily for a few days then tapered it down back to 5 mg daily. When he has a flare he has significant difficulty getting up from bed, difficultly gripping things with his hands. Today he has pain in his hands, wrists, shoulders, feet. He is unaware of any family history of autoimmune rheumatic disease. Denies any history of psoriasis. No history of blood clots. [facility] Medical History (Updated 11/19/23 @ 08:44 by Maggi Saha MD) Osteoarthritis of hands, bilateral GERD (gastroesophageal reflux disease) Chronic pain syndrome Postlaminectomy syndrome Spondylosis of lumbar spine Primary osteoarthritis, left hand Primary osteoarthritis, right hand Osteoarthritis of neck Nicotine dependence, unspecified, uncomplicated Failed back syndrome Benign essential HTN Surgical History CTS (carpal tunnel syndrome) Hx of decompressive lumbar laminectomy Family History Father No problems noted. Mother No problems noted. Social History Housing: House Alcohol intake: current Alcohol intake frequency: a few times a week Alcohol type: beer Patient Tobacco Use Status: Current someday Tobacco user Tobacco use type: Cigar Cigarettes Per Day: 1 e-Cigarette/Vaping Use: Never Used Second Hand Smoke Exposure: Yes service: No Current occupational status: unemployed Cognitive needs: No Hearing needs: No Vision needs: Yes (Glasses) [place] [facility] [place]gias and Reports stiffness Skin/Breast Denies rash Physical Exam Vital Signs: Last Vital Signs Pulse 80 11/19/23 08:09 BP 134/82 11/19/23 08:09 Pulse Ox 100 11/19/23 08:09 Oxygen Delivery Method Room Air 11/19/23 08:09 BMI result Body Mass Index 28.9 Const General: cooperative, healthy appearing and comfortable Nutritional Appearance: overweight Orientation/consciousness: patient oriented x3 Limitations: no limitations HEENT Head: Yes normocephalic and Yes atraumatic Mouth: moist mucous membranes Resp Effort & Inspection: normal respiratory effort and able to speak in complete sentences Auscultation: clear to auscultation bilaterally Cardio Rate: regular rate Rhythm: regular rhythm Skin General skin exam: no rashes or lesions noted Neuro General: patient oriented x3 Extrem Other: Bilateral puffy index fingers No wrist tenderness but pain with full flexion and extension 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 no elbow pain with full flexion-extension Bilateral positive MCP squeeze test No tender PIPs or DIPs Significantly limited range of motion of his shoulders Positive empty can test and Speed's test bilaterally Right knee pain with full flexion No ankle swelling or tenderness bilaterally Assessment & Plan Assessment & Plan (1) Rheumatoid arthritis: Comment: seroneg dx 12/02 MTX 2018 for 3-6 months ineffective PDN throughout Enbrel 11/2022-04/2023 ineffective Code(s): M06.9 - Rheumatoid arthritis, unspecified Category: Medical Qualifiers: Rheumatoid arthritis location: multiple sites Rheumatoid factor presence: without rheumatoid factor Qualified Code(s): M06.09 - Rheumatoid arthritis without rheumatoid factor, multiple sites Plan: This is a 68-year-old male with seronegative RA who presents for follow-up. Patient tried and failed methotrexate for 3-6 months. He also tried Enbrel regularly for 5 months without relief. Requires prednisone 10 mg daily in order to be functional. On exam patient has significant stiffness and multiple tender joints. Will need to change DMARDs. Discussed risks and benefits of Actemra. Patient agreed to proceed. Will start prior authorization for Actemra Continue with prednisone 5-10 mg daily Labs today and before next visit in 2 months Plan I spent 27 minutes reviewing patient's chart, evaluating patient, ordering diagnostic workup, counseling patient and documenting in the chart Orders: Orders Complete Blood Count Auto Diff 2 Months M06.09 - Rheumatoid arthritis without rheumatoid factor, multiple sites C Reactive Protein 2 Months M06.09 - Rheumatoid arthritis without rheumatoid factor, multiple sites Erythrocyte Sedimentation Rate 2 Months M06.09 - Rheumatoid arthritis without rheumatoid factor, multiple sites T Spot TB Today Z11.7 - Encounter for testing for latent tuberculosis infection Comprehensive Met. Panel 2 Months M06.09 - Rheumatoid arthritis without rheumatoid factor, multiple sites Complete Blood Count Auto Diff Today M06.09 - Rheumatoid arthritis without rheumatoid factor, multiple sites Comprehensive Met. Panel Today M06.09 - Rheumatoid arthritis without rheumatoid factor, multiple sites C Reactive Protein Today M06.09 - Rheumatoid arthritis without rheumatoid factor, multiple sites Erythrocyte Sedimentation Rate Today M06.09 - Rheumatoid arthritis without rheumatoid factor, multiple sites Medications: Changed From prednisone 5 mg PO DAILY 30 tabs 0RF To prednisone 10 mg (2 x 5 mg) PO DAILY 60 tabs 0RF Coding Level of Care Code Est Pt Level 4 (13199) Diagnoses Rheumatoid arthritis of multiple sites with negative rheumatoid factor M06.09 Rheumatoid arthritis location: multiple sites Rheumatoid factor presence: without rheumatoid factor
[2023-11-19 08:09] VITALS: BP 134/82; PULSE 80; O2SAT 100; BMI 28.9
== END 2023-11-19 08:37 | disposition home or self-care (01) ==
LOC: HO.RHE 08:03
PROVIDERS: PCP Internal Medicine; Visit Provider Student in an Organized Health Care Education/Training Program
DX: M06.09 Rheumatoid arthritis without rheumatoid factor, multiple sites (principal)
CPT/HCPCS: 99214

== ENCOUNTER → 2023-11-19 08:03 | Outpatient (BNVA) | payer MEDICARE, MEDICAID, SELFPAY | PROVIDERS: PCP Internal Medicine; Visit Provider Student in an Organized Health Care Education/Training Program | DX: M06.09 Rheumatoid arthritis without rheumatoid factor, multiple sites (principal); Z79.52 Long term (current) use of systemic steroids | CPT/HCPCS: 99212 ==

== ENCOUNTER 2024-01-01 14:13 | Outpatient (AMB) | payer MEDICARE, SELFPAY ==
[2024-01-01 14:15] VITALS: BP 138/86; PULSE 80; O2SAT 96; BMI 28.6
--- NOTE | 2024-01-01 14:15 | A.OFFPC_ITS ---
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 Accompanied by: Self / Same As Patient Allergies No Known Allergies Allergy (Verified 01/01/24 14:16) Tobacco use date assessed: 01/01/24 Fall risk assessment: No Falls in past year Dental Screening Dental Screen Date: 09/12/23 Did you have a dental visit in the last 12 months?: No Did you have a dental problem in the last 6 months where you did not have access to dental care?: No Was dental information given to patient?: No PFSH Medical History Osteoarthritis of hands, bilateral GERD (gastroesophageal reflux disease) Chronic pain syndrome Postlaminectomy syndrome Spondylosis of lumbar spine Primary osteoarthritis, left hand Primary osteoarthritis, right hand Osteoarthritis of neck Nicotine dependence, unspecified, uncomplicated Failed back syndrome Benign essential HTN Surgical History CTS (carpal tunnel syndrome) Hx of decompressive lumbar laminectomy Family History Father No problems noted. Mother No problems noted. Social History Housing: House Alcohol intake: current Alcohol intake frequency: a few times a week Alcohol type: beer Patient Tobacco Use Status: Current someday Tobacco user Tobacco use type: Cigar Cigarettes Per Day: 1 e-Cigarette/Vaping Use: Never Used Second Hand Smoke Exposure: Yes service: No Current occupational status: unemployed Cognitive needs: No Hearing needs: No Vision needs: Yes (Glasses) Questionnaire PHQ-9 Over the last 2 weeks, how often have you been bothered by any of the following problems? 1. Little interest or pleasure in doing things: not at all 2. Feeling down, depressed, or hopeless: not at all 3. Trouble falling or staying asleep, or sleeping too much: not at all 4. Feeling tired or having little energy: not at all 5. Poor appetite or overeating: not at all 6. Feeling bad about yourself - or that you are a failure or have let yourself or your family down: not at all 7. Trouble concentrating on things, such as reading the newspaper or watching television: not at all 8. Moving or speaking so slowly that other people could have noticed. Or the opposite - being so fidgety or restless that you have been moving around a lot more than usual: not at all 9. Thoughts that you would be better off or of hurting yourself in some way: not at all Total score: 0 Depression Screening Interpretation: Negative Depression Screening Done: Yes Source: Developed by Drs. Gustavo Marques, Edna Lam, Placido Sims and colleagues, with an educational po from [employer]. Thrive Questionnaire Date Thrive assessed: 01/01/24 I am a: Patient What is your living situation today?: I have a steady place to live Within the past 12 months, did the food you bought not last and you didn't have the money to get more?: Never true Within the past 12 months, did you worry whether your food would run out before you got money to buy more?: Never true Do you have trouble paying for medicines?: No Do you have trouble getting transportation to medical appointments?: No Do you have trouble paying your heating and electricity bill?: No Do you have trouble taking care of your child, family member or friend?: No Do you have trouble with day-to-day activities such as bathing, preparing meals, shopping, managing finances, etc.?: No Are you currently unemployed and looking for a job?: No Are you interested in more education?: No Please select the resources that you would like help with: None Currently or been in a relationship where the following occur: No concerns reported THRIVE Score: 0 AUDIT C Alcohol Use Questionnaire (AUDIT-C) 1. How often do you have a drink containing alcohol?: 2-3 times a week 2. How many drinks containing alcohol do you have on a typical day when you are drinking?: 1 or 2 3. How often do you have six or more drinks on one occasion?: Never Total Score: 3 PRINCE-7 AMB Questionnaire PRINCE-7 Date PRINCE - 7 assessed: 01/01/24 Feeling nervous, anxious, or on edge: 0 = Not at all Not being able to stop or control worryin = Not at all Worrying too much about different things: 0 = Not at all Trouble relaxin = Not at all Being so restless that it is hard to sit still: 0 = Not at all Becoming easily annoyed or irritable: 0 = Not at all Feeling afraid as if something awful might happen: 0 = Not at all Total PRINCE-7 score (0-4 normal; 5-9 mild; 10-14 moderate; 15-21 severe): 0 Source: Developed by Drs. Gustavo Marques, Edna Lam, Placido Sims and colleagues, with an educational po from [employer]. PRINCE-7 Assessment Billing PRINCE-7 Assessment Tool: PRINCE-7 Assessment 07530 Physical exam (Primary Care) Tobacco/Smoking Status: Tobacco use Status Tobacco use date assessed 09/12/23 09/12/23 14:13 Patient Tobacco Use Status Current someday Tobacco 09/12/23 14:13 Tobacco use type Cigar 09/12/23 14:13 e-Cigarette/Vaping Use Never Used 09/12/23 14:13 Depression Screening Interpretation: Negative Thrive Assessment: Date of Thrive Assessment Date Thrive assessed 09/12/23 09/12/23 14:13 Currently or been in a relationship where the following occur: No concerns reported Coding Additional Codes PRINCE-7 Assessment Billing - PRINCE-7 Assessment Tool: PRINCE-7 Assessment 11465 ([id number])
--- NOTE | 2024-01-01 14:22 | AM.OFFVISMDC ---
Intake Vital Signs 01/01/24 14:15 Height 6 ft Weight 211 lb 2 oz BMI 28.6 BP 138/86 Blood Pressure Location Lt brachial Position Sitting Pulse 80 Pulse Source Pulse Oximeter Pulse Oximetry (%) 96 Oxygen Delivery Method Room Air Intake Visit Reasons: AWV G0438 Training And Development Head Required: No Accompanied by: Self / Same As Patient Allergies No Known Allergies Allergy (Verified 01/01/24 15:03) Medication List - Last Reconciled 01/01/24 by Chris Ernst MD albuterol sulfate 90 mcg/actuation (Ventolin HFA) 1 inh inhalation QID PRN cyclobenzaprine 10 mg PO BEDTIME omeprazole 40 mg PO DAILY oxycodone 5 mg PO DAILY PRN prednisone 10 mg (2 x 5 mg) PO DAILY valsartan 40 mg PO BID Yuflyma(CF) Autoinjector (adalimumab-aaty) 40 mg (0.4 mL) subcut Q2W NS Do you need a note to return to daycare/school/sports/work: No HPI AWV G0438 HPI Details 68-year-old male presents to the office requesting an annual wellness exam. [facility] Medical History Osteoarthritis of hands, bilateral GERD (gastroesophageal reflux disease) Chronic pain syndrome Postlaminectomy syndrome Spondylosis of lumbar spine Primary osteoarthritis, left hand Primary osteoarthritis, right hand Osteoarthritis of neck Nicotine dependence, unspecified, uncomplicated Failed back syndrome Benign essential HTN Surgical History CTS (carpal tunnel syndrome) Hx of decompressive lumbar laminectomy Family History Father No problems noted. Mother No problems noted. Social History Housing: House Alcohol intake: current Alcohol intake frequency: a few times a week Alcohol type: beer Patient Tobacco Use Status: Current someday Tobacco user Tobacco use type: Cigar Cigarettes Per Day: 1 e-Cigarette/Vaping Use: Never Used Second Hand Smoke Exposure: Yes service: No Current occupational status: unemployed Cognitive needs: No Hearing needs: No Vision needs: Yes (Glasses) Questionnaire Medicare Wellness Checkup [age] 65-70 What gender do you identify with?: male During the past 4 weeks, how much have you been bothered by emotional problems such as feeling anxious, depressed, irritable, sad or downhearted, and blue?: not at all During the past 4 weeks, has your physical & emotional health limited your social activities with family, friends, neighbors, or groups?: not at all During the past 4 weeks, how much bodily pain have you generally had?: mild pain During the past 4 weeks, was someone available to help you if you needed & wanted help?: yes, a little During the past 4 weeks, what was the hardest physical activity you could do for at least 2 minutes?: moderate Can you get to places out of walking distance without help? (For eg., can you travel alone on buses, taxis or drive your car?): Yes Can you go shopping for groceries or clothes without someone's help?: Yes Can you prepare your own meals?: Yes Can you do your housework without help?: Yes Because of any health problems, do you need the help of another person with your personal care needs such as eating, bathing, dressing or getting around the house?: No Can you handle your own money without help?: Yes During the past 4 weeks, how would you rate your health in general?: fair During the past 4 weeks how have things been going for you?: good & bad parts about equal Are you having difficulties driving your car?: no Do you always fasten your seat belt when you are in a car?: yes, sometimes During past 4 weeks, have you been bothered by the following: never: Falling or dizzy when standing up, Sexual problems?, Trouble eating well?, Teeth or denture problems?, Problems using the telephone? and Tiredness or fatigue? Have you fallen 2 or more times in the past year?: No Are you afraid of falling?: No Are you a smoker?: yes, but I'm not ready to quit During the past 4 weeks, how many drinks of wine, beer, or other alcoholic beverages did you have?: 10 or more per week Do you exercise for about 20 minutes 3 or more times a week?: yes, some of the time Have you been given information to help with the following?: no: Hazards in your house that might hurt you? and no: Keeping track of your medications? How often do you have trouble taking medicines the way you have been told to take them?: I always take medicine as prescribed How confident are you that you can control & manage most of your health problems?: very confident What is your race?: White Mini Mental State Exam (MMSE) Orientation What is the (year) (season) (date) (day) (month)?: year, season, date, day and month Score Score: 5 Activity of Daily Living Bathing - sponge bath, tub bath or shower: receives no assistance (gets in/out by self, if usual bathing means Dressing - getting clothes from closets & drawers, including inner/outer garments & fasteners.: gets clothes & gets completely dressed without help Toileting - going to the 'toilet room' for urine/bowel elimination & cleaning self/arranging clothes: goes to toilet room, cleans self, arranges clothes without help Transfer: moves in & out of bed and chair without help (may use support object) Continence: controls urination/bowel movements completely by self Feeding: feeds self without help Total Score: 0 Information obtained from: patient Using telephone: independent Traveling: independent Shopping: independent Preparing meals: independent Housework: independent Taking medicine: independent Managing money: independent PHQ-9 Over the last 2 weeks, how often have you been bothered by any of the following problems? 1. Little interest or pleasure in doing things: not at all 2. Feeling down, depressed, or hopeless: not at all 3. Trouble falling or staying asleep, or sleeping too much: not at all 4. Feeling tired or having little energy: not at all 5. Poor appetite or overeating: not at all 6. Feeling bad about yourself - or that you are a failure or have let yourself or your family down: not at all 7. Trouble concentrating on things, such as reading the newspaper or watching television: not at all 8. Moving or speaking so slowly that other people could have noticed. Or the opposite - being so fidgety or restless that you have been moving around a lot more than usual: not at all 9. Thoughts that you would be better off or of hurting yourself in some way: not at all Total score: 0 Depression Screening Interpretation: Negative Depression Screening Done: Yes Source: Developed by Drs. Gustavo Marques, Edna Lam, Placido Sims and colleagues, with an educational po from [employer]. PHQ-2/PHQ-9 PHQ-2 Over the last 2 weeks, how often have you been bothered by any of the following problems? 1. Little interest or pleasure in doing things: not at all 2. Feeling down, depressed, or hopeless: not at all Total score: 0 If score is 3 or greater, continue 3. Trouble falling or staying asleep, or sleeping too much: not at all 4. Feeling tired or having little energy: not at all 5. Poor appetite or overeating: not at all 6. Feeling bad about yourself - or that you are a failure or have let yourself or your family down: not at all 7. Trouble concentrating on things, such as reading the newspaper or watching television: not at all 8. Moving or speaking so slowly that other people could have noticed. Or the opposite - being so fidgety or restless that you have been moving around a lot more than usual: not at all 9. Thoughts that you would be better off or of hurting yourself in some way: not at all Total score: 0 0-4 None-Minimal, 5-9 Mild, 10-14 Moderate, 15-19 Moderately Severe, 20-27 Severe Source: Developed by Drs. Gustavo Marques, Placido Pat and colleagues, with an educational op from [employer]. Thrive Questionnaire Date Thrive assessed: 01/01/24 I am a: Patient What is your living situation today?: I have a steady place to live Within the past 12 months, did the food you bought not last and you didn't have the money to get more?: Never true Within the past 12 months, did you worry whether your food would run out before you got money to buy more?: Never true Do you have trouble paying for medicines?: No Do you have trouble getting transportation to medical appointments?: No Do you have trouble paying your heating and electricity bill?: No Do you have trouble taking care of your child, family member or friend?: No Do you have trouble with day-to-day activities such as bathing, preparing meals, shopping, managing finances, etc.?: No Are you currently unemployed and looking for a job?: No Are you interested in more education?: No Please select the resources that you would like help with: None Currently or been in a relationship where the following occur: No concerns reported THRIVE Score: 0 PRINCE-7 AMB Questionnaire PRINCE-7 Date PRINCE - 7 assessed: 01/01/24 Feeling nervous, anxious, or on edge: 0 = Not at all Not being able to stop or control worryin = Not at all Worrying too much about different things: 0 = Not at all Trouble relaxin = Not at all Being so restless that it is hard to sit still: 0 = Not at all Becoming easily annoyed or irritable: 0 = Not at all Feeling afraid as if something awful might happen: 0 = Not at all Total PRINCE-7 score (0-4 normal; 5-9 mild; 10-14 moderate; 15-21 severe): 0 Source: Developed by Drs. Gustavo Marques, Edna Lam, Placido Sims and colleagues, with an educational po from [employer]. PRINCE-7 Assessment Billing PRINCE-7 Assessment Tool: PRINCE-7 Assessment 21081 Physical Exam Vital Signs: Last Vital Signs Pulse 80 01/01/24 14:15 BP 138/86 01/01/24 14:15 Pulse Ox 96 01/01/24 14:15 Oxygen Delivery Method Room Air 01/01/24 14:15 BMI result Body Mass Index 28.6 Balance: Normal Romberg: Negative Tandem Walk: Able to Walk and Turn: Able to Rise from sit to stand: Able to Hearing Whisper test: Pass Screening procedures document schedule given and marshall of care noted. Assessment & Plan Assessment & Plan (1) Polymyalgia rheumatica: Code(s): M35.3 - Polymyalgia rheumatica Plan: Condition is stable. (2) Benign essential HTN: Code(s): I10 - Essential (primary) hypertension Plan: Blood pressure is in range. Continue same medications. (3) Annual physical exam: Code(s): Z00.00 - Encounter for general adult medical examination without abnormal findings Plan: See attached document Orders: Orders Complete Blood Count no Diff Today I10 - Essential (primary) hypertension, M35.3 - Polymyalgia rheumatica Liver Panel Today I10 - Essential (primary) hypertension, M35.3 - Polymyalgia rheumatica UA and rflx microscopic Today I10 - Essential (primary) hypertension, M35.3 - Polymyalgia rheumatica Basic Metabolic Panel Today I10 - Essential (primary) hypertension, M35.3 - Polymyalgia rheumatica Lipid Panel Today I10 - Essential (primary) hypertension, M35.3 - Polymyalgia rheumatica Thyroid Stimulating Hormone Today I10 - Essential (primary) hypertension, M35.3 - Polymyalgia rheumatica Medications: Refilled oxycodone Partial Fill upon patient request. 5 mg PO DAILY PRN 10 tabs 0RF pain Quality Reporting (2019) Depression/Bipolar (159/160/161/177) PHQ-9: Total score: 0 Coding Level of Care Code Medicare First (G0438) Diagnoses Polymyalgia rheumatica M35.3 Benign essential HTN I10 Annual physical exam Z00.00 Additional Codes PRINCE-7 Assessment Billing - PRINCE-7 Assessment Tool: PRINCE-7 Assessment [id number] ([id number]) Advance Care Planning Advance Care Planning discussion: Exists, not on file Date of discussion: 01/01/24 Who was present: Patient Forms completed: Health Care Proxy and [facility] Actual minutes spent: 5
== END 2024-01-01 15:47 | disposition home or self-care (01) ==
PROVIDERS: PCP Internal Medicine; Visit Provider Internal Medicine
DX: Z00.00 Encounter for general adult medical examination without abnormal findings (principal); M35.3 Polymyalgia rheumatica; I10 Essential (primary) hypertension
CPT/HCPCS: 99214; G0438

== ENCOUNTER 2024-01-23 07:18 | Outpatient (REF) | payer MEDICARE, SELFPAY ==
[2024-01-23 07:38] LABS: MANUAL DIFF FLAG NO
[2024-01-23 07:49] LABS: Hematocrit 45.5 % (42.0-52.0); Hemoglobin 16.2 g/dl (14.0-18.0); Mean Corpuscular HGB Conc 35.6 g/dl (31.0-36.0); Mean Corpuscular Hemoglobin 31.6 pg (27.0-33.0); Mean Corpuscular Volume 88.9 fL (80.0-98.0); Mean Platelet Volume 8.7 fL (9.4-12.4); Platelet Count 227 X10*3/uL (160-400); Red Blood Count 5.12 X10*6/uL (4.60-5.80); White Blood Count 5.3 X10*3/uL (4.8-10.8)
[2024-01-23 07:50] LABS: Basophils Percent Auto 0.6 % (0-2); Eosinophils Absolute Auto 0.2 X10*3/uL (0.0-0.4); Eosinophils Percent Auto 3.1 % (0-4); Hematocrit 45.2 % (42.0-52.0); Hemoglobin 16.1 g/dl (14.0-18.0); Imm Gran Abs Auto 0.02 X10*3/uL (0.00-0.03); Imm Gran Pct Auto 0.4 % (0.0-0.4); Lymphocytes Percent Auto 36.1 % (20-40); Mean Corpuscular HGB Conc 35.6 g/dl (31.0-36.0); Mean Corpuscular Hemoglobin 31.4 pg (27.0-33.0); Mean Corpuscular Volume 88.3 fL (80.0-98.0); Mean Platelet Volume 8.6 fL (9.4-12.4); Monocytes Absolute Auto 0.5 X10*3/uL (0.1-1.2); Monocytes Percent Auto 9.3 % (2-11); Neutrophils Absolute Auto 2.7 x10*3/uL (2.0-8.3); Neutrophils Percent Auto 50.5 % (45-73); Platelet Count 227 X10*3/uL (160-400); Red Blood Count 5.12 X10*6/uL (4.60-5.80); Red Cell Distribution Width 12.1 % (11.0-16.0); White Blood Count 5.4 X10*3/uL (4.8-10.8)
[2024-01-23 08:12] LABS: Alanine Aminotransferase 25 U/L (0-40); Albumin Level 4.1 g/dL (3.5-5.0); Alkaline Phosphatase 68 U/L (39-117); Anion Gap 12 (12-20); Aspartate Amino Transferase 26 U/L (5-37); Bilirubin Direct 0.3 mg/dL (0.0-0.5); Bilirubin Total 1.3 mg/dL (0.0-1.0); Blood Urea Nitrogen 8 mg/dL (9-16); C Reactive Protein < 0.10 mg/dL (< or = 0.50); Calcium 9.3 mg/dL (8.4-10.2); Carbon Dioxide 28 mmol/L (22-29); Chloride 108 mmol/L (96-108); Cholesterol 216 mg/dL (<200); Estimated Glomerular Filt Rate > 60; Glucose Random 89 mg/dL (60-115); HDL Cholesterol 51 mg/dL (>40); LDL Cholesterol Calculated 129 mg/dL (<100); Potassium 4.6 mmol/L (3.3-5.1); Sodium 143 mmol/L (135-145); Total Protein 6.5 g/dL (6.5-8.0); Triglycerides 181 mg/dL (<150)
[2024-01-23 08:30] LABS: HBS Num1 0.34 mIU/mL (0-7.99); HBc Num1 0.05 S/CO (0.00-0.79); HBsAGNum1 0.19 S/CO (0.00-0.99); Hepatitis A Antibody IgM 0.19 Index (0-0.79); Hepatitis B Core Antibody Nonreactive (Nonreactive); Hepatitis B Surface Antigen Negative (Negative); ~HepC Num1 0.07 S/CO (0.00-0.79); ~Hepatitis A Antibody IgM Nonreactive (Nonreactive); ~Hepatitis B Surface Antibody NONREACTIVE (Nonreactive); ~Hepatitis C Antibody Nonreactive (Nonreactive)
[2024-01-23 08:35] LABS: Erythrocyte Sedimentation Rate 4 MM/HR (0-15)
[2024-01-23 09:24] LABS: Appearance Urine Clear; Color Urine Yellow; Glucose Urine UA Negative (Negative); Leukocyte Esterase Urine Negative (Negative); Nitrite Urine Negative (Negative); PH 5.5 (5.0-9.0); Specific Gravity - Urine 1.015 (1.005-1.025); Urine Blood Negative (Negative); Urine Ketones Negative (Negative); Urine Protein Negative (Neg-Trace)
[2024-01-26 07:24] LABS: TS Negative Control Passed; TS Panel A 1; TS Panel B 0; TS Positive Control Passed; TSpotTB Negative (Negative)
== END 2024-01-23 07:19 | disposition home or self-care (01) ==
LOC: HO.LAB 07:18
PROVIDERS: Absent Provider Student in an Organized Health Care Education/Training Program; PCP Internal Medicine; Visit Provider Internal Medicine
DX: M06.09 Rheumatoid arthritis without rheumatoid factor, multiple sites (principal); Z11.7 Encounter for testing for latent tuberculosis infection; Z11.59 Encounter for screening for other viral diseases; M35.3 Polymyalgia rheumatica; I10 Essential (primary) hypertension; Z12.5 Encounter for screening for malignant neoplasm of prostate; Z72.89 Other problems related to lifestyle
CPT/HCPCS: 36415; 80053; 80061; 81003; 82248; 84153; 84443; 85025; 85027; 85652; 86140; 86481; 86704; 86706; 86709; 86803; 87340

== ENCOUNTER 2024-02-26 14:10 | Outpatient (AMB) | payer MEDICARE, SELFPAY ==
--- NOTE | 2024-02-26 14:20 | MHC.OFFVIS ---
Intake Visit Reasons: Elevated PSA Intake Note: New patient is present for Elevated PSA No family history of Bladder/Prostate Cancer Recent PSA: 01/23/2024 6.50 Pie Bottomer Required: No Accompanied by: Self / Same As Patient Allergies No Known Allergies Allergy (Verified 02/26/24 14:24) HPI Comments Details: Chong is a pleasant male. He is a patient of . He seen for the following urologic conditions - elevated PSA Elevated PSA whilst on immune modifying agent for arthritis Did discuss that this is not an uncommon situation Typically trial finasteride for 4 months and repeat PSA Minimal voiding symptoms PFSH Medical History Osteoarthritis of hands, bilateral GERD (gastroesophageal reflux disease) Chronic pain syndrome Postlaminectomy syndrome Spondylosis of lumbar spine Primary osteoarthritis, left hand Primary osteoarthritis, right hand Osteoarthritis of neck Nicotine dependence, unspecified, uncomplicated Failed back syndrome Benign essential HTN Surgical History CTS (carpal tunnel syndrome) Hx of decompressive lumbar laminectomy Family History Father No problems noted. Mother No problems noted. Social History Housing: House Alcohol intake: current Alcohol intake frequency: a few times a week Alcohol type: beer Patient Tobacco Use Status: Current someday Tobacco user Tobacco use type: Cigar Cigarettes Per Day: 1 e-Cigarette/Vaping Use: Never Used Second Hand Smoke Exposure: Yes service: No Current occupational status: unemployed Cognitive needs: No Hearing needs: No Vision needs: Yes (Glasses) Review of Systems Const Denies chills and Denies fever(s) Card Reports no additional complaints and Denies syncope Resp Denies cough GI Denies abdominal pain and Denies heartburn Reports as per HPI and Denies change in libido Neuro Denies syncope Psych Denies change in libido Endo Denies change in libido Physical Exam Const General: cooperative, healthy appearing, comfortable and no acute distress Orientation/consciousness: patient oriented x3 HEENT Face and sinus: Yes normal facial exam Mouth: moist mucous membranes Neck Neck: Yes normal visual inspection, Yes full ROM and Yes trachea midline Chest Chest palpation & inspection: normal inspection of the chest Resp Effort & Inspection: normal respiratory effort, able to speak in complete sentences and no respiratory distress GI Inspection: Yes normal to inspection Back/Spine/Pelvis Cervical Spine: normal cervical lordosis Thoracic/Lumbar Spine: thoracic and lumbar spine normal to inspection Skin General skin exam: no rashes or lesions noted Neuro General: patient oriented x3, gait normal, tone normal and moves all extremities Extrem General: Yes normal to inspection and Yes capillary refill normal Assessment & Plan Assessment & Plan (1) Elevated PSA: Code(s): R97.20 - Elevated prostate specific antigen [PSA] Category: Medical Plan Four month follow-up PSA with finasteride Orders: Orders Prostate Specific Antigen 4 Months R97.20 - Elevated prostate specific antigen [PSA] Medications: New finasteride 5 mg PO DAILY 90 days 90 tabs 1RF R97.20 - Elevated prostate specific antigen [PSA] Patient Instructions: Imaging studies, laboratory and physical exam results were discussed and reviewed in detail. No major barriers to patient understanding were identified. An opportunity to ask questions regarding the treatment plan was provided. All questions were answered. The patient expressed understanding and agreement with the above treatment plan. The patient is aware they should contact our office by phone for worsening of their current condition or the appearance of new urologic symptoms. Compliance is encouraged with any medications and followup testing that is ordered. It is a privilege to participate in the urologic care of your patient. If you have any questions or concerns regarding treatment for the above conditions, or other urologic issues, please do not hesitate to contact me. The office telephone contact is [phone]. This note is constructed using voice recognition software. While every effort has been made to ensure accuracy oil extractor errors may have been included. Yours sincerely, Dr Diego Bautista MD, [facility] - Urology Providers of Expert, Compassionate Care for the Genitourinary System Coding Level of Care Code New Pt Level 4 (64821) Diagnoses Elevated PSA R97.20
== END 2024-02-26 14:45 | disposition home or self-care (01) ==
PROVIDERS: PCP Internal Medicine; Visit Provider Urology
DX: R97.20 Elevated prostate specific antigen [PSA] (principal)
CPT/HCPCS: 99204

== ENCOUNTER → 2024-02-26 14:10 | Outpatient (BNVA) | payer MEDICARE, SELFPAY | PROVIDERS: PCP Internal Medicine; Visit Provider Urology | DX: R97.20 Elevated prostate specific antigen [PSA] (principal) | CPT/HCPCS: 99202 ==

== ENCOUNTER 2024-03-21 09:39 | Outpatient (AMB) | payer MEDICARE, SELFPAY ==
[2024-03-21 10:27] VITALS: BP 126/80; PULSE 68; O2SAT 96; BMI 30.1
--- NOTE | 2024-03-21 10:27 | MHC.OFFWIV ---
Intake Vital Signs 03/21/24 10:27 Height 6 ft Weight 222 lb BMI 30.1 BP 126/80 Blood Pressure Location Rt brachial Position Sitting Pulse 68 Pulse Source Pulse Oximeter Pulse Oximetry (%) 96 Oxygen Delivery Method Room Air Intake Visit Reasons: EP-Chest pain & between shoulder +1M Intake Note: Pt is here today c/o chest pain and pain between shoulder blade Patient Tobacco Use Status: Current someday Tobacco user Allergies No Known Allergies Allergy (Verified 03/21/24 10:54) Medication List - Last Reconciled 03/21/24 by Deedee Camarillo, [employer]MIN[employer]ER- albuterol sulfate 90 mcg/actuation (Ventolin HFA) 1 inh inhalation QID PRN finasteride 5 mg PO DAILY 90 days valsartan 40 mg PO BID Yuflyma(CF) Autoinjector (adalimumab-aaty) 40 mg (0.4 mL) subcut Q2W NS HPI HPI Comments History of Present Illness Details 68-year-old male with current tobacco use, hypertension, hyperlipidemia here today with complaints of chest pressure for the last 6 weeks. Reports that the pressure is in his anterior chest and radiates between bilateral shoulder blades. The pressure is constant. He reports no exacerbating factors. He can do his activities of daily living without any worsening of symptoms. He also then developed some fluttering in his epigastric region. The sensation does come and go. He is unable to identify any alleviating or exacerbating factors. He denies any shortness of breath, diaphoresis, syncope. States that he just generally does not feel well Exam Awake alert oriented, no acute distress Regular rate and rhythm Lung sounds clear to auscultation bilat, no costochondral tenderness Unable to replicate the pain or pressure sensation that he describes Abdomen is soft, nontender, negative Mcarthur's Plan EKG shows an incomplete right bundle-branch block. The plan will be to refer him to Cardiology in order a stress test. Made aware that this may need to come from his primary care provider however I will try to order this today. Strongly recommended that he call his primary care office on Saturday to follow up. In regards to the epigastric fluttering this may or may not be related to what is going on however this may also need a further workup. I will defer this to the primary care provider. Educated that if he were to develop any chest pain, shortness of breath, diaphoresis, shortness of breath that he should seek care in the emergency room. This note is constructed using voice recognition software. While every effort has been made to ensure accuracy in knitter operator, still errors may have been included Sometimes, these errors may affect the content or meaning of the given sentence . Total time spent caring for the patient today was 45 minutes. This includes time spent before the visit reviewing the chart, time spent during the visit, and time spent after the visit on documentation [facility] Medical History Osteoarthritis of hands, bilateral GERD (gastroesophageal reflux disease) Chronic pain syndrome Postlaminectomy syndrome Spondylosis of lumbar spine Primary osteoarthritis, left hand Primary osteoarthritis, right hand Osteoarthritis of neck Nicotine dependence, unspecified, uncomplicated Failed back syndrome Benign essential HTN Surgical History CTS (carpal tunnel syndrome) Hx of decompressive lumbar laminectomy Family History Father No problems noted. Mother No problems noted. Social History Housing: House Alcohol intake: current Alcohol intake frequency: a few times a week Alcohol type: beer Patient Tobacco Use Status: Current someday Tobacco user Tobacco use type: Cigar Cigarettes Per Day: 1 e-Cigarette/Vaping Use: Never Used Second Hand Smoke Exposure: Yes service: No Current occupational status: unemployed Cognitive needs: No Hearing needs: No Vision needs: Yes (Glasses) Physical Exam Vital Signs: Last Vital Signs Pulse 68 03/21/24 10:27 BP 126/80 03/21/24 10:27 Pulse Ox 96 03/21/24 10:27 Oxygen Delivery Method Room Air 03/21/24 10:27 BMI result Body Mass Index 30.1 Office Procedures EKG 27728-[id number], Complete Assessment & Plan Assessment & Plan (1) Chest pressure: Code(s): R07.89 - Other chest pain Plan: . (2) Right bundle branch block (RBBB) on electrocardiography: Code(s): I45.10 - Unspecified right bundle-branch block Plan: . (3) Current smoker: Code(s): F17.200 - Nicotine dependence, unspecified, uncomplicated Plan: Smoking Cessation How to Quit There are a lot of ways to quit smoking and many resources to help you. Family members, friends, and co-workers may be supportive or encouraging, but to be successful the desire and commitment to quit must be your own. Most people who have been able to successfully quit smoking made at least one unsuccessful attempt in the past. Try not to view past attempts to quit as failures, but rather as learning experiences. Stopping smoking or using smokeless tobacco is difficult, but anyone can do it. Know the symptoms to expect when you stop. Common symptoms include: ? An intense craving for nicotine ? Anxiety, tension, restlessness, frustration, or impatience ? Difficulty concentrating ? Drowsiness or trouble sleeping, as well as bad dreams and nightmares ? Drowsiness and trouble sleeping ? Headaches ? Increased appetite and weight gain ? Irritability or depression How severe your symptoms are depends on how long you smoked and how many cigarettes you smoked each day. Feel ready to quit? ? First and foremost, set a quit date and quit completely on that day. Before your quit date, you may begin reducing your cigarette use. But remember, there is no safe level of cigarette smoking. ? List the reasons why you want to quit. Include both short- and long-term benefits. ? Identify the times you are most likely to smoke. For example, do you tend to smoke when feeling stressed or down? When out at night with friends? While drinking coffee or alcohol? When bored? While driving? Right after a meal or sex? During a work break? While watching TV or playing cards? When you are with other smokers? ? Let all of your friends, family, and co-workers know of your plan to stop smoking and your quit date. Just being aware that they know what you're going through can be helpful, especially when you are grumpy. ? Get rid of all your cigarettes just before the quit date, and clean out anything that smells like smoke, such as clothes and furniture. Make a plan about what you will do instead of smoking at those times when you are most likely to smoke. ? Be as specific as possible. For example, drink tea instead of coffee -- tea may not trigger the desire for a cigarette. Or, take a walk when you feel stressed. ? Remove ashtrays and cigarettes from the car. Place pretzels or hard candies there instead. Pretend-smoke with a straw. ? Find activities that focus your hands and mind but are not taxing or fattening. Computer games, solitaire, knitting, sewing, and crossword puzzles may help. ? If you normally smoke after eating, find other ways to end a meal. Play a tape or CD, eat a piece of fruit, get up and make a phone call, or take a walk (a good distraction that also castellon calories). Make other changes in your lifestyle. ? Change your daily schedule and habits. Eat at different times or eat several small meals instead of three large ones. Sit in a different chair or even a different room. ? Satisfy your oral habits by eating celery or other low-calorie snack, chewing sugarless gum, or sucking on a cinnamon stick. ? Go to public places and restaurants where smoking is prohibited or restricted. ? Eat regular meals and don't eat too much candy or sweet things. ? Get more exercise. Take walks or ride a bike. Exercise helps relieve the urge to smoke. Set short-term quitting goals and reward yourself when you meet them. ? Every day, put the money you normally spend on cigarettes in a jar. Then buy something pleasurable after a period of time. ? Try not to think about all the days ahead you will need to avoid smoking. Take it one day at a time. ? Even one puff or one cigarette will make your desire for more cigarettes even stronger. However, it is normal to make mistakes. So even if you have one cigarette, you don't need to take the next one. Other tips to help you quit smoking and stick to it: ? Enroll in a smoking cessation program (hospitals, health departments, community centers, and work sites often offer programs). Learn about self-hypnosis or other techniques. ? Ask your health care provider about prescription medications that are safe and appropriate for you. ? Find out about nicotine patches, gum, and sprays. The [employer]'s web site -- www.cancer.org -- is an excellent resource for smokers who are trying to quit, and the [employer] [place] [employer] can help some smokers kick the habit. Above all, don't get discouraged if you aren't able to quit smoking the first time. Nicotine addiction is a hard habit to break. Try something different next time. Develop new strategies, and try again. Many people take several attempts to finally kick the habit. Orders: Orders AMB EKG-In Office Today Z13.6 - Encounter for screening for cardiovascular disorders CA stress test Today F17.200 - Nicotine dependence, unspecified, uncomplicated, I45.10 - Unspecified right bundle-branch block, R07.89 - Other chest pain Referrals Cardiology Referral I45.10 - Unspecified right bundle-branch block, R07.89 - Other chest pain Coding Level of Care Code Est Pt Level 5 (85426) Diagnoses Chest pressure R07.89 Right bundle branch block (RBBB) on electrocardiography I45.10 Current smoker F17.200 CPT Codes EKG - CPT: 61086-[id number], Complete ([id number])
== END 2024-03-21 11:35 | disposition home or self-care (01) ==
PROVIDERS: PCP Internal Medicine; Visit Provider Nurse Practitioner Family
DX: R07.89 Other chest pain (principal); I45.10 Unspecified right bundle-branch block; F17.290 Nicotine dependence, other tobacco product, uncomplicated

== ENCOUNTER → 2024-03-21 09:39 | Outpatient (BNVA) | payer MEDICARE, SELFPAY | PROVIDERS: PCP Internal Medicine | DX: R07.89 Other chest pain (principal); I45.10 Unspecified right bundle-branch block; F17.200 Nicotine dependence, unspecified, uncomplicated; Z71.6 Tobacco abuse counseling | CPT/HCPCS: 93005; 99212 ==

== ENCOUNTER → 2024-03-27 09:19 | Outpatient (REF) | payer MEDICARE, SELFPAY ==
--- NOTE | 2024-03-27 09:22 | CA_ITS ---
Acquisition Time: 2024-03-27 09:28:31 Total Exercise Time: 00:04:48 Test Indications: CP Medications: ALBUTEROL FINASTERIDE VALSARTAN Protocol: SHIRA Max HR: 127 BPM 83% of Pred: 153 BPM Max BP: 194/100 mmHG Max Work Load: 6.7 METS Exercise stress test with exercise 4 min 48 sec of Shira protocol, achieving 83% MPHR, with 3/10 anterior chest pressure at baseline which increased to 5/10 with exercise, with moderate shortness of breath, with isolated PACs and rare PVCs, with elevated BP at baseline and further elevation with exercise to max of 194/100, without EKG changes meeting criteria for ischemia at achieved workload. In recovery his sob resolved, chest pressure returned to 3/10 and BP returned to baseline. Test reviewed with Dr Greenberg. Referred By: Deedee Camarillo Overread By: ERMELINDA MCKEON
== END ==
LOC: HO.CARD 09:19
PROVIDERS: PCP Internal Medicine; Visit Provider Nurse Practitioner Family
DX: I45.10 Unspecified right bundle-branch block (principal); R07.89 Other chest pain; F17.200 Nicotine dependence, unspecified, uncomplicated
CPT/HCPCS: 93017

== ENCOUNTER → 2024-03-27 09:22 | Outpatient (BNV) | payer MEDICARE, SELFPAY | PROVIDERS: PCP Internal Medicine; Visit Provider Nurse Practitioner Family | DX: R06.02 Shortness of breath (principal); I49.1 Atrial premature depolarization; I49.3 Ventricular premature depolarization | CPT/HCPCS: 93016; 93018 ==

== ENCOUNTER 2024-04-02 14:13 | Outpatient (AMB) | payer MEDICARE, SELFPAY ==
--- NOTE | 2024-04-02 14:15 | MHC.PC.OV ---
Vital Signs 04/02/24 14:17 Height 6 ft Weight 220 lb 8 oz BMI 29.9 BP 132/82 Blood Pressure Location Lt brachial Position Sitting Pulse 81 Pulse Source Pulse Oximeter Pulse Oximetry (%) 96 Oxygen Delivery Method Room Air Intake Visit Reasons: 3mth f/u Intake Note: Patient is here to follow up on HTN, Polymyalgia, OA. Vice President Pharmacy Required: No Product Info Specialist: Not Required per policy Accompanied by: Self / Same As Patient Allergies No Known Allergies Allergy (Verified 04/09/24 15:38) Medication List - Last Reconciled 04/09/24 by Chris Ernst MD albuterol sulfate 90 mcg/actuation (Ventolin HFA) 1 inh inhalation QID PRN finasteride 5 mg PO DAILY 90 days fluticasone propionate 50 mcg/actuation (Flonase Allergy Relief) 1 spray intranasal DAILY omeprazole 40 mg PO DAILY oxycodone 5 mg PO DAILY PRN valsartan 40 mg PO BID Yuflyma(CF) Autoinjector (adalimumab-aaty) 40 mg (0.4 mL) subcut Q2W NS Tobacco use date assessed: 04/02/24 Fall risk assessment: No Falls in past year Last assessed Fall Risk: 04/02/24 Dental Screening Dental Screen Date: 09/12/23 HPI 3mth f/u HPI Details 68-year-old male presents to the office to discuss his chronic medical conditions. Patient is at baseline state of health with is various body aches acting up. He has more pain in the legs especially in the thighs. He sees the yard loader operator and is on medications. Able to function and do all activities of daily living. [facility] Medical History Osteoarthritis of hands, bilateral GERD (gastroesophageal reflux disease) Chronic pain syndrome Postlaminectomy syndrome Spondylosis of lumbar spine Primary osteoarthritis, left hand Primary osteoarthritis, right hand Osteoarthritis of neck Nicotine dependence, unspecified, uncomplicated Failed back syndrome Benign essential HTN Surgical History CTS (carpal tunnel syndrome) Hx of decompressive lumbar laminectomy Family History Father No problems noted. Mother No problems noted. Social History Housing: House Alcohol intake: current Alcohol intake frequency: a few times a week Alcohol type: beer Patient Tobacco Use Status: Current someday Tobacco user Tobacco use type: Cigar Cigarettes Per Day: 1 e-Cigarette/Vaping Use: Never Used Second Hand Smoke Exposure: Yes service: No Current occupational status: unemployed Cognitive needs: No Hearing needs: No Vision needs: Yes (Glasses) Questionnaire Thrive Questionnaire Date Thrive assessed: 01/01/24 PRINCE-7 AMB Questionnaire PRINCE-7 Date PRINCE - 7 assessed: 01/01/24 Source: Developed by Drs. Gustavo Marques, Edna Lam, Placido Sims and colleagues, with an educational po from [employer]. Physical exam (Primary Care) Vital Signs: Last Vital Signs Pulse 81 04/02/24 14:17 BP 132/82 04/02/24 14:17 Pulse Ox 96 04/02/24 14:17 Oxygen Delivery Method Room Air 04/02/24 14:17 BMI result Body Mass Index 29.9 Tobacco/Smoking Status: Tobacco use Status Tobacco use date assessed 04/02/24 04/02/24 14:22 Patient Tobacco Use Status Current someday Tobacco 04/02/24 14:22 Tobacco use type Cigar 04/02/24 14:22 e-Cigarette/Vaping Use Never Used 04/02/24 14:22 Thrive Assessment: Date of Thrive Assessment Date Thrive assessed 01/01/24 04/02/24 14:22 Const General: cooperative and healthy appearing Nutritional Appearance: well nourished Orientation/consciousness: patient oriented x3 Limitations: no limitations HENMT Head: Yes normal to inspection Eyes General: appearance normal, both eyes and all related structures Neck Neck: Yes normal visual inspection Chest Chest palpation & inspection: normal palpation of entire chest wall Resp Effort & Inspection: normal respiratory effort Neuro General: patient oriented x3 Coding Level of Care Code Est Pt Level 4 (09387) Complex EM visit Add On G2211 Diagnoses Polymyalgia rheumatica M35.3 Assessment & Plan Assessment & Plan (1) Polymyalgia rheumatica: Code(s): M35.3 - Polymyalgia rheumatica Category: Medical Plan: Patient was given a prescription of oxycodone, to take 1 tablets a day as needed. This is to improve his quality of life. Medications: New oxycodone Partial Fill upon patient request. 5 mg PO DAILY PRN 20 tabs 0RF pain fluticasone propionate 50 mcg/actuation (Flonase Allergy Relief) administer into each nostril 1 spray intranasal DAILY 9.9 mL 1RF omeprazole 40 mg PO DAILY 90 caps 1RF Refilled valsartan 40 mg PO BID 90 tabs 1RF
[2024-04-02 14:17] VITALS: BP 132/82; PULSE 81; O2SAT 96; BMI 29.9
== END 2024-04-02 15:51 | disposition home or self-care (01) ==
PROVIDERS: PCP Internal Medicine; Visit Provider Internal Medicine
DX: M35.3 Polymyalgia rheumatica (principal)

== ENCOUNTER → 2024-04-02 14:13 | Outpatient (BNVA) | payer MEDICARE, SELFPAY | PROVIDERS: PCP Internal Medicine; Visit Provider Internal Medicine | DX: M35.3 Polymyalgia rheumatica (principal) | CPT/HCPCS: 99212 ==

== ENCOUNTER 2024-04-13 13:18 | Outpatient (AMB) | payer MEDICARE, SELFPAY ==
--- NOTE | 2024-04-13 13:21 | A.OFFVIS_ITS ---
Vital Signs 04/13/24 13:25 Height 6 ft Weight 221 lb 1.978 oz BMI 30.0 BP 122/80 Blood Pressure Location Lt brachial Position Sitting Respiration 18 Pulse 82 Pulse Source Pulse Oximeter Pulse Oximetry (%) 95 Oxygen Delivery Method Room Air Intake Visit Reasons: PMR Intake Note: Patient presents for PMR. Allergies No Known Allergies Allergy (Verified 04/09/24 15:38) Medication List - Last Reconciled 04/13/24 by Maggi Saha MD albuterol sulfate 90 mcg/actuation (Ventolin HFA) 1 inh inhalation QID PRN finasteride 5 mg PO DAILY 90 days fluticasone propionate 50 mcg/actuation (Flonase Allergy Relief) 1 spray intranasal DAILY omeprazole 40 mg PO DAILY oxycodone 5 mg PO DAILY PRN valsartan 40 mg PO BID Yuflyma(CF) Autoinjector (adalimumab-aaty) 40 mg (0.4 mL) subcut Q2W NS HPI Comments Details: This is a 68-year-old male with seronegative RA who presents for follow-up. He has been on adalimumab injections 40 mg every other week since last visit. He stopped the prednisone 2-3 months ago. He states that his hands elbows knees feel better. He continues to have shoulder pain and stiffness. He was evaluated by Orthopedics and received steroid injections which provide moderate relief. He has been having left-sided lower back pain that intermittently radiates to his left lower extremity. This started recently. He states that he has known significant back arthritis and had a couple of spine surgeries.. States that about 2 years ago he was evaluated by [facility] and had multiple injections in his back as well as physical therapy without much relief. Initial history: This is a 67-year-old male with PMR who presents for follow-up. Last seen by Kim Dejesus a few months ago. Since 2018 patient started having pain stiffness of his shoulders, hands, wrists, feet. He was diagnosed with rheumatoid arthritis and started on methotrexate, patient took it for 3-6 months without relief. Since then patient has been diagnosed with PMR and has been on varying doses of prednisone, his baseline dose of prednisone is 5 mg and there were times that he was on dexamethasone and other times when he would increase the prednisone dose to treat flares. Most recent flare was a few weeks ago and patient increase the prednisone to 20 mg daily for a few days then tapered it down back to 5 mg daily. When he has a flare he has significant difficulty getting up from bed, difficultly gripping things with his hands. Today he has pain in his hands, wrists, shoulders, feet. He is unaware of any family history of autoimmune rheumatic disease. Denies any history of psoriasis. No history of blood clots. [facility] Medical History Osteoarthritis of hands, bilateral GERD (gastroesophageal reflux disease) Chronic pain syndrome Postlaminectomy syndrome Spondylosis of lumbar spine Primary osteoarthritis, left hand Primary osteoarthritis, right hand Osteoarthritis of neck Nicotine dependence, unspecified, uncomplicated Failed back syndrome Benign essential HTN Surgical History CTS (carpal tunnel syndrome) Hx of decompressive lumbar laminectomy Family History Father No problems noted. Mother No problems noted. Social History Housing: House Alcohol intake: current Alcohol intake frequency: a few times a week Alcohol type: beer Patient Tobacco Use Status: Current someday Tobacco user Tobacco use type: Cigar Cigarettes Per Day: 1 e-Cigarette/Vaping Use: Never Used Second Hand Smoke Exposure: Yes service: No Current occupational status: unemployed Cognitive needs: No Hearing needs: No Vision needs: Yes (Glasses) Review of Systems Musc Reports back pain, Reports arthralgias, Reports radiating pain into limb and Reports stiffness Skin/Breast Denies rash Physical Exam Vital Signs: Last Vital Signs Pulse 82 04/13/24 13:25 Resp 18 04/13/24 13:25 BP 122/80 04/13/24 13:25 Pulse Ox 95 04/13/24 13:25 Oxygen Delivery Method Room Air 04/13/24 13:25 BMI result Body Mass Index 30.0 Const General: cooperative, healthy appearing and comfortable Nutritional Appearance: overweight Orientation/consciousness: patient oriented x3 Limitations: no limitations HEENT Head: Yes normocephalic and Yes atraumatic Mouth: moist mucous membranes Resp Effort & Inspection: normal respiratory effort and able to speak in complete sentences Auscultation: clear to auscultation bilaterally Cardio Rate: regular rate Rhythm: regular rhythm Skin General skin exam: no rashes or lesions noted Neuro General: patient oriented x3 Extrem Other: Puffiness of fingers resolved No wrist swelling, tenderness or pain with full flexion-extension bilaterally Bilateral normal hand business practices officer strength No elbow pain with full flexion-extension Negative MCP squeeze test bilaterally Able to fully abduct both shoulders but slightly stiff Positive empty can test bilaterally Negative Speed's test bilaterally Positive straight leg raise test on the left No knee swelling, warmth or pain with full flexion and extension bilaterally Assessment & Plan Assessment & Plan (1) Rheumatoid arthritis: Comment: seroneg dx 12/02 MTX 2018 for 3-6 months ineffective PDN throughout Enbrel 11/2022-04/2023 ineffective Adalimumab 11/2023 effective Code(s): M06.9 - Rheumatoid arthritis, unspecified Category: Medical Qualifiers: Rheumatoid arthritis location: multiple sites Rheumatoid factor presence: without rheumatoid factor Qualified Code(s): M06.09 - Rheumatoid arthritis without rheumatoid factor, multiple sites Plan: This is a 68-year-old male with seronegative RA who presents for follow-up. He has been on adalimumab 40 mg every other week since 11/2023. With significant improvement on exam. His complaints today are likely degenerative and mechanical in nature Prednisone has been discontinued 2-3 months ago Stay off of prednisone Continue with adalimumab 40 mg every other week Labs before next visit in 6 months (2) Osteoarthritis of left shoulder: Code(s): M19.012 - Primary osteoarthritis, left shoulder Category: Medical Qualifiers: Osteoarthritis type: unspecified Qualified Code(s): M19.012 - Primary osteoarthritis, left shoulder Plan: Bilateral shoulder osteoarthritis with likely rotator cuff tendinopathy. Referred to PT (3) Osteoarthritis of right shoulder: Code(s): M19.011 - Primary osteoarthritis, right shoulder Category: Medical Qualifiers: Osteoarthritis type: unspecified Qualified Code(s): M19.011 - Primary osteoarthritis, right shoulder (4) Back pain with left-sided radiculopathy: Code(s): M54.10 - Radiculopathy, site unspecified Category: Medical Plan: Follow-up with spine surgeon (5) High risk medication use: Code(s): Z79.899 - Other [place] (current[facility] drug therapy Category: Medical Plan: Side effects of adalimumab were discussed with the patient in detail including increased risk of infection, demyelinating disease, reactivation of latent TB, possible increased risk of solid and skin tumors. Patient fully aware. Advised patient to seek medical care ASAEL if patient has an infection and advised patient to stop the medication until the infection is resolved. Plan I spent 27 minutes reviewing patient's chart, evaluating patient, ordering taj gnostic workup, counseling patient and documenting in the chart Orders: Orders PT Evaluation and Treatment Today M75.81 - Other shoulder lesions, right shoulder, M75.82 - Other shoulder lesions, left shoulder Complete Blood Count Auto Diff 6 Months M06.09 - Rheumatoid arthritis without rheumatoid factor, multiple sites Comprehensive Met. Panel 6 Months M06.09 - Rheumatoid arthritis without rheumatoid factor, multiple sites C Reactive Protein 6 Months M06.09 - Rheumatoid arthritis without rheumatoid factor, multiple sites Erythrocyte Sedimentation Rate 6 Months M06.09 - Rheumatoid arthritis without rheumatoid factor, multiple sites Coding Level of Care Code Est Pt Level 4 (55365) Complex EM visit Add On G2211 Diagnoses Rheumatoid arthritis of multiple sites with negative rheumatoid factor M06.09 Rheumatoid arthritis location: multiple sites Rheumatoid factor presence: without rheumatoid factor Osteoarthritis of left shoulder, unspecified osteoarthritis type M19.012 Osteoarthritis type: unspecified Osteoarthritis of right shoulder, unspecified osteoarthritis type M19.011 Osteoarthritis type: unspecified Back pain with left-sided radiculopathy M54.10 High risk medication use Z79.899
[2024-04-13 13:25] VITALS: BP 122/80; PULSE 82; RESP 18; O2SAT 95
== END 2024-04-13 14:23 | disposition home or self-care (01) ==
PROVIDERS: PCP Internal Medicine; Visit Provider Student in an Organized Health Care Education/Training Program
DX: M06.09 Rheumatoid arthritis without rheumatoid factor, multiple sites (principal); M19.012 Primary osteoarthritis, left shoulder; M19.011 Primary osteoarthritis, right shoulder; M54.10 Radiculopathy, site unspecified; Z79.899 Other long term (current) drug therapy
CPT/HCPCS: 99214; G2211

== ENCOUNTER → 2024-04-13 13:18 | Outpatient (BNVA) | payer MEDICARE, SELFPAY | PROVIDERS: PCP Internal Medicine; Visit Provider Student in an Organized Health Care Education/Training Program | DX: M06.09 Rheumatoid arthritis without rheumatoid factor, multiple sites (principal); M19.012 Primary osteoarthritis, left shoulder; M19.011 Primary osteoarthritis, right shoulder; M54.10 Radiculopathy, site unspecified; M75.81 Other shoulder lesions, right shoulder; M75.82 Other shoulder lesions, left shoulder; Z79.899 Other long term (current) drug therapy | CPT/HCPCS: 99212 ==

== ENCOUNTER 2024-06-22 10:12 | Outpatient (AMB) | payer MEDICARE, SELFPAY ==
--- NOTE | 2024-06-22 10:13 | MHC.OFFVIS ---
Vital Signs 06/22/24 10:15 Height 6 ft Weight 222 lb BMI 30.1 BP 163/89 H Blood Pressure Location Lt brachial Position Sitting Respiration 16 Pulse 70 Pulse Source Pulse Oximeter Pulse Oximetry (%) 99 Oxygen Delivery Method Room Air Intake Visit Reasons: Low back pain Carbider Required: No Allergies No Known Allergies Allergy (Verified 06/22/24 10:16) Medication List - Last Reconciled 06/22/24 by Elissa Louise LPN albuterol sulfate 90 mcg/actuation (Ventolin HFA) 1 inh inhalation QID PRN finasteride 5 mg PO DAILY 90 days fluticasone propionate 50 mcg/actuation (Flonase Allergy Relief) 1 spray intranasal DAILY omeprazole 40 mg PO DAILY Yuflyma(CF) Autoinjector (adalimumab-aaty) 40 mg (0.4 mL) subcut Q2W NS HPI HPI Low back pain: Details: History of Present Illness The patient is a 68-year-old male presenting with chronic low back pain associated with lumbar spinal stenosis. Following a hemilaminectomy at L4-L5, the patient experienced transient relief before the progressive return of bilateral leg pain over the last four months. The pain, severe on the left, radiates toward the left foot, compromising his mobility and daily activities. Despite spinal injections and physical therapy, relief is temporary. Arthritis and disc degeneration with congenital canal stenosis were noted in previous assessments, contributing significantly to the symptoms. Exploring non-invasive treatments, specifically a neurostimulator, remains a focus given the ineffective previous interventions and the notable spinal and facet degeneration. Pain Description - Onset and Timing: Worsened over four months, bilateral, left more than right - Quality and Character: Chronic, severe, non-radiating low back pain - Primary Location: Lower back with radiation to both legs and top of left foot - Exacerbating Factors: Prolonged standing, brisk walking, forward and lateral bending - Relieving Factors: Sitting straight up; slow walking pace - Interference with Functions: Inhibits mobility, standing for a minute, and brisk walking Physical Exam - Lumbar Spine- Forward flexion reproduces pain in the lower back - Lateral Bending- Pain during right and left bend with right side pain greater - Backward Extension- Induces axial lower back pain Results - Previous MRI showed facet arthritis, degenerative disc changes, and congenital canal stenosis. Pain Management - Affect: Chronic pain adversely impacts mobility and standing tolerance - Analgesia: Previous spinal injections ineffective; seeking neurostimulation - Adverse Effects: None reported for current pain management - Activities of Daily Living: Limited standing duration and mobility - Aberrant Drug Related Behaviors: None reported [facility] Medical History Osteoarthritis of hands, bilateral GERD (gastroesophageal reflux disease) Chronic pain syndrome Postlaminectomy syndrome Spondylosis of lumbar spine Primary osteoarthritis, left hand Primary osteoarthritis, right hand Osteoarthritis of neck Nicotine dependence, unspecified, uncomplicated Failed back syndrome Benign essential HTN Surgical History CTS (carpal tunnel syndrome) Hx of decompressive lumbar laminectomy Family History Father No problems noted. Mother No problems noted. Social History Housing: House Alcohol intake: current Alcohol intake frequency: a few times a week Alcohol type: beer Patient Tobacco Use Status: Current someday Tobacco user Tobacco use type: Cigar Cigarettes Per Day: 1 e-Cigarette/Vaping Use: Never Used Second Hand Smoke Exposure: Yes service: No Current occupational status: unemployed Cognitive needs: No Hearing needs: No Vision needs: Yes (Glasses) Physical Exam Vital Signs: Last Vital Signs Pulse 70 06/22/24 10:15 Resp 16 06/22/24 10:15 BP 163/89 H 06/22/24 10:15 Pulse Ox 99 06/22/24 10:15 Oxygen Delivery Method Room Air 06/22/24 10:15 BMI result Body Mass Index 30.1 Assessment & Plan Assessment & Plan (1) Spondylosis of lumbar spine: Code(s): M47.816 - Spondylosis without myelopathy or radiculopathy, lumbar region Category: Medical (2) Dysfunction of the multifidus muscles, lumbar region: Code(s): M62.85 - Dysfunction of the multifidus muscles, lumbar region Category: Medical (3) Postlaminectomy syndrome: Code(s): M96.1 - Postlaminectomy syndrome, not elsewhere classified Category: Medical Plan Plan The management approach focuses on a neurostimulator trial for multifactorial axial LBP before planned travel in early September. The intervention seeks to alleviate pain resistant to previous injections and therapies exhausted before. Preparatory steps involve dual-phase procedure scheduling for left and right L3 medial branches, targeting facet and multifidus mediated pain. Patient apprised of procedural details, and consent reviewed. Patient was informed and verbally consented to the use of an ambient scribe for clinic note documentation during this visit. Discussion Notes I discussed the complexity of the patient?s lumbar spinal stenosis and associated chronic pain, emphasizing that surgical correction does not always assure symptom resolution. Various degenerative changes contribute. The potential for 40%-60% relief through the trial phase, non-permanent but with lesser invasiveness initially, was outlined. I highlighted procedural logistics relative to pending travel obligations, addressing procedural timelines and financial considerations. The patient was informed about timeline targets, Medicare coverage, and associated costs. In consensus, both patient and I aim to benchmark relief prospects, potentially progressing to permanent solutions per trial success. Coding Level of Care Code Est Pt Level 4 (15704) Diagnoses Spondylosis of lumbar spine M47.816 Dysfunction of the multifidus muscles, lumbar region M62.85 Postlaminectomy syndrome M96.1
[2024-06-22 10:15] VITALS: BP 163/89; PULSE 70; RESP 16; O2SAT 99; BMI 30.1
== END 2024-06-22 10:45 | disposition home or self-care (01) ==
PROVIDERS: PCP Internal Medicine; Visit Provider Internal Medicine
DX: M47.816 Spondylosis without myelopathy or radiculopathy, lumbar region (principal); M62.85 Dysfunction of the multifidus muscles, lumbar region; M96.1 Postlaminectomy syndrome, not elsewhere classified
CPT/HCPCS: 99214

== ENCOUNTER → 2024-06-22 10:12 | Outpatient (BNVA) | payer MEDICARE, SELFPAY | PROVIDERS: PCP Internal Medicine; Visit Provider Internal Medicine | DX: M47.816 Spondylosis without myelopathy or radiculopathy, lumbar region (principal); M62.85 Dysfunction of the multifidus muscles, lumbar region; M96.1 Postlaminectomy syndrome, not elsewhere classified | CPT/HCPCS: 99212 ==

== ENCOUNTER 2024-06-25 07:31 | Outpatient (REF) | payer MEDICARE, SELFPAY ==
--- NOTE | ~2024-06-25 | FL_ITS ---
EXAMINATION: FL GUIDANCE ONLY HISTORY: M47.816 - Spondylosis without myelopathy or radiculopathy, lumbar region COMPARISON: None available. TECHNIQUE: Fluoroscopy time: 0.1 minutes. Cumulative Dose: 6.60 mGy. DAP: 0.0739 mGym2 Images: 3. FINDINGS: Fluoroscopic spot films of the lumbar spine demonstrate lead on the right. FL/FL guidance in treatment room IMPRESSION: Fluoroscopy during procedure. Please see procedure report for additional information. Electronically signed by: Gustavo Betancourt MD 06/25/2024 10:34 AM J[facility] BOONE
== END 2024-06-25 07:32 | disposition home or self-care (01) ==
LOC: CF 07:31
PROVIDERS: Visit Provider Internal Medicine
DX: M47.816 Spondylosis without myelopathy or radiculopathy, lumbar region (principal)
CPT/HCPCS: 64555; C1778; J2003

== ENCOUNTER 2024-06-25 08:52 | Outpatient (AMB) | payer MEDICARE, SELFPAY ==
[2024-06-25 09:01] VITALS: BP 166/94; PULSE 76; O2SAT 99; BMI 30.1
--- NOTE | 2024-06-25 09:01 | A.OFFVIS_ITS ---
Vital Signs 06/25/24 09:01 Height 6 ft Weight 222 lb BMI 30.1 BP 166/94 H Blood Pressure Location Lt brachial Position Sitting Pulse 76 Pulse Source Pulse Oximeter Pulse Oximetry (%) 99 Oxygen Delivery Method Room Air Intake Visit Reasons: Left L3 Sprint Sound Technician Supervisor Required: No Allergies No Known Allergies Allergy (Verified 06/25/24 09:02) Medication List - Last Reconciled 06/25/24 by Linda Lu, OCCUPATIONAL ANALYST albuterol sulfate 90 mcg/actuation (Ventolin HFA) 1 inh inhalation QID PRN finasteride 5 mg PO DAILY 90 days fluticasone propionate 50 mcg/actuation (Flonase Allergy Relief) 1 spray intranasal DAILY omeprazole 40 mg PO DAILY Yuflyma(CF) Autoinjector (adalimumab-aaty) 40 mg (0.4 mL) subcut Q2W NS HPI HPI Left L3 Sprint: Details: Patient presents for scheduled procedure. Denies any recent cough, cold, infection, fever or other significant changes in medical history since last office visit. [facility] Medical History Osteoarthritis of hands, bilateral GERD (gastroesophageal reflux disease) Chronic pain syndrome Postlaminectomy syndrome Spondylosis of lumbar spine Primary osteoarthritis, left hand Primary osteoarthritis, right hand Osteoarthritis of neck Nicotine dependence, unspecified, uncomplicated Failed back syndrome Benign essential HTN Surgical History CTS (carpal tunnel syndrome) Hx of decompressive lumbar laminectomy Family History Father No problems noted. Mother No problems noted. Social History Housing: House Alcohol intake: current Alcohol intake frequency: a few times a week Alcohol type: beer Patient Tobacco Use Status: Current someday Tobacco user Tobacco use type: Cigar Cigarettes Per Day: 1 e-Cigarette/Vaping Use: Never Used Second Hand Smoke Exposure: Yes service: No Current occupational status: unemployed Cognitive needs: No Hearing needs: No Vision needs: Yes (Glasses) Physical Exam Vital Signs: Last Vital Signs Pulse 76 06/25/24 09:01 BP 166/94 H 06/25/24 09:01 Pulse Ox 99 06/25/24 09:01 Oxygen Delivery Method Room Air 06/25/24 09:01 BMI result Body Mass Index 30.1 Office Procedures Details: Lumbar Medial Branch Nerve Stimulation Lead Placement, SPR (Sprint) System, Left L3 ? After the risks, benefits and alternatives were discussed with the patient and informed consent was obtained, patient was placed in the prone position and padded to foster comfort. The skin overlying the lumbosacral spine was prepped and draped in sterile fashion. Fluoroscopy was used to identify the spinous process and lamina in the center of the patient?s region of pain. After identifying and marking the intended target along the course of the medial branch nerve, the skin around the planned entry point and the subcutaneous tissues were injected with lidocaine 1%. An introducer needle and stimulating probe were assembled, inserted and advanced along the intended course of the medial branch nerve as it traverses the lamina medial and inferior to the zygapophyseal joint, taking care to maintain the proper depth of insertion as the introducer is advanced under fluoroscopic guidance. The introducer needle was delivered to a location in proximity to the nerve. Multiple stimulation parameters were used to deliver stimulation to the target medial branch nerve in concert with stimulating at multiple positions around the nerve. Nerve target acquisition was confirmed noting generation of paresthesias in the paravertebral regions corresponding to the level being stimulated. Various electrical parameter combinations were tested, and the lead location was adjusted (physically relocated) until the patient indicated paresthesia/muscle tension overlapping the distribution of the patient?s typical region of pain. The stimulating probe was removed from the introducer and a percutaneous lead was guided through the needle and delivered to a location in similar proximity to the nerve. Final location was verified with electrical stimulation and documented with fluoroscopy. The introducer needle was removed, and the exposed end of the percutaneous lead was attached to an external stimulator unit. Various electrical parameter combinations were again tested until the patient indicated paresthesia or muscle tension overlapping the distribution of the patient?s typical region of pain. After confirming that lead impedance was in the normal range, the external unit was detached, the needle was removed, and the lead was anchored at the skin. The lead was threaded into the connector block and electrical continuity and desired patient response was confirmed. The connector block was attached to the external stimulator unit. The site was covered with a sterile occlusive dressing. The patient was observed for stability of vital signs and comfort. Sprint PNS Device: Sprint PNS Device [id number] Percutaneous Peripheral Neuroelectrode Procedure: 00251 - Percutaneous Peripheral Neuroelectrode Procedure code (CPT) selection complete Office Meds lidocaine HCl 10 mg/mL (1 %) injection solution Performing Provider: Ivonne Gill APRN, JULIÁN [place] [facility] [place] [facility] Administered by: Elissa Louise LPN on 06/25/24 09:38 Dose Route Admin Location Dispensed Lot Number Expiration Date NDC Market Research Analyst 1 mL subcut 5 mL Assessment & Plan Assessment & Plan (1) Dysfunction of the multifidus muscles, lumbar region: Code(s): M62.85 - Dysfunction of the multifidus muscles, lumbar region Category: Medical (2) Postlaminectomy syndrome: Code(s): M96.1 - Postlaminectomy syndrome, not elsewhere classified Category: Medical (3) Spondylosis of lumbar spine: Code(s): M47.816 - Spondylosis without myelopathy or radiculopathy, lumbar region Category: Medical Plan Patient is status post [procedure]. Patient tolerated procedure well and was discharged home in stable condition with discharge instructions. All questions were answered. We will follow-up via telephone or in clinic to assess response to therapy. A follow-up appointment was made during today's visit. Orders: Orders FL guidance in treatment room Today M47.816 - Spondylosis without myelopathy or radiculopathy, lumbar region AMB Sprint PNS Today M47.816 - Spondylosis without myelopathy or radiculopathy, lumbar region Coding Level of Care Code Procedure Only Diagnoses Dysfunction of the multifidus muscles, lumbar region M62.85 Postlaminectomy syndrome M96.1 Spondylosis of lumbar spine M47.816 CPT Codes Sprint PNS - Sprint PNS Device: Sprint PNS Device ([id number]) Sprint PNS - SPRINT: 23604 - Percutaneous Peripheral Neuroelectrode ([id number]) Implantable Device Implantable Device Implantable Devices Qty Market Research Analyst Implant Date Expiration Date Analgesic PENS system 1 [employer] 06/25/24 07/05/25
== END 2024-06-25 10:02 | disposition home or self-care (01) ==
LOC: HO.PMCPRC 08:52
PROVIDERS: PCP Internal Medicine; Visit Provider Internal Medicine
DX: M62.85 Dysfunction of the multifidus muscles, lumbar region (principal); M96.1 Postlaminectomy syndrome, not elsewhere classified; M47.816 Spondylosis without myelopathy or radiculopathy, lumbar region
CPT/HCPCS: 64555

== ENCOUNTER 2024-06-26 09:53 | Outpatient (REF) | payer MEDICARE, SELFPAY ==
[2024-06-26 11:45] LABS: Prostate Specific Antigen 3.54 ng/mL (<0.05-4.0)
== END 2024-06-26 09:54 | disposition home or self-care (01) ==
LOC: HO.LAB 09:53
PROVIDERS: PCP Internal Medicine; Visit Provider Urology
DX: R97.20 Elevated prostate specific antigen [PSA] (principal); Z12.5 Encounter for screening for malignant neoplasm of prostate
CPT/HCPCS: 36415; 84153

== ENCOUNTER 2024-06-30 10:43 | Outpatient (AMB) | payer MEDICARE, SELFPAY ==
--- NOTE | 2024-06-30 10:52 | A.OFFVIS_ITS ---
Intake Visit Reasons: 4M PSA/Med Review(psa?)Finasteride Intake Note: Patient presents today for follow up on: elevated psa Urology Medications: finasteride Blood Thinner: none Aerotriangulation Specialist Required: No Accompanied by: Self / Same As Patient Allergies No Known Allergies Allergy (Verified 07/03/24 10:59) HPI Comments Details: Chong is a pleasant male. He is a patient of . He seen for the following urologic conditions - elevated PSA PSA falling repeat PSA in six-month Elevated PSA Elevated PSA whilst on immune modifying agent for arthritis Follow-up finasteride trial - 02/03 6.5, 07/07 3.5 Minimal voiding symptoms PFSH Medical History Osteoarthritis of hands, bilateral GERD (gastroesophageal reflux disease) Chronic pain syndrome Postlaminectomy syndrome Spondylosis of lumbar spine Primary osteoarthritis, left hand Primary osteoarthritis, right hand Osteoarthritis of neck Nicotine dependence, unspecified, uncomplicated Failed back syndrome Benign essential HTN Surgical History CTS (carpal tunnel syndrome) Hx of decompressive lumbar laminectomy Family History Father No problems noted. Mother No problems noted. Social History Housing: House Alcohol intake: current Alcohol intake frequency: a few times a week Alcohol type: beer Patient Tobacco Use Status: Current someday Tobacco user Tobacco use type: Cigar Cigarettes Per Day: 1 e-Cigarette/Vaping Use: Never Used Second Hand Smoke Exposure: Yes service: No Current occupational status: unemployed Cognitive needs: No Hearing needs: No Vision needs: Yes (Glasses) Review of Systems Const Denies chills and Denies fever(s) Card Reports no additional complaints and Denies syncope Resp Denies cough GI Denies abdominal pain and Denies heartburn Reports as per HPI and Denies change in libido Neuro Denies syncope Psych Denies change in libido Endo Denies change in libido Physical Exam Const General: cooperative, healthy appearing, comfortable and no acute distress Orientation/consciousness: patient oriented x3 HEENT Face and sinus: Yes normal facial exam Mouth: moist mucous membranes Neck Neck: Yes normal visual inspection, Yes full ROM and Yes trachea midline Chest Chest palpation & inspection: normal inspection of the chest Resp Effort & Inspection: normal respiratory effort, able to speak in complete sentences and no respiratory distress GI Inspection: Yes normal to inspection Back/Spine/Pelvis Cervical Spine: normal cervical lordosis Thoracic/Lumbar Spine: thoracic and lumbar spine normal to inspection Skin General skin exam: no rashes or lesions noted Neuro General: patient oriented x3, gait normal, tone normal and moves all extremities Extrem General: Yes normal to inspection and Yes capillary refill normal Assessment & Plan Assessment & Plan (1) Elevated PSA: Code(s): R97.20 - Elevated prostate specific antigen [PSA] Category: Medical Plan six-month follow-up Orders: Orders Prostate Specific Antigen 6 Months R97.20 - Elevated prostate specific antigen [PSA] Patient Instructions: This note is constructed using voice recognition software. While every effort has been made to ensure accuracy hydraulic barker operator errors may have been included. Imaging studies, laboratory and physical exam results were discussed and reviewed in detail. No major barriers to patient understanding were identified. An opportunity to ask questions regarding the treatment plan was provided. All questions were answered. The patient expressed understanding and agreement with the above treatment plan. The patient is aware they should contact our office by phone for worsening of their current condition or the appearance of new urologic symptoms. Compliance is encouraged with any medications and followup testing that is ordered. It is a privilege to participate in the urologic care of your patient. If you have any questions or concerns regarding treatment for the above conditions, or other urologic issues, please do not hesitate to contact me. The office telephone contact is [phone]. Sincerely, Dr Diego Bautista MD, [facility] - Urology Compassionate Specialist Care for the Genitourinary System Coding Level of Care Code Est Pt Level 3 (25863) Diagnoses Elevated PSA R97.20
== END 2024-06-30 11:15 | disposition home or self-care (01) ==
PROVIDERS: PCP Internal Medicine; Visit Provider Urology
DX: R97.20 Elevated prostate specific antigen [PSA] (principal)
CPT/HCPCS: 99213

== ENCOUNTER → 2024-06-30 10:43 | Outpatient (BNVA) | payer MEDICARE, SELFPAY | PROVIDERS: PCP Internal Medicine; Visit Provider Urology | DX: R97.20 Elevated prostate specific antigen [PSA] (principal) | CPT/HCPCS: 99212 ==

== ENCOUNTER 2024-07-03 10:46 | Outpatient (AMB) | payer MEDICARE, SELFPAY ==
--- NOTE | 2024-07-03 10:57 | MHC.OFFVIS ---
Vital Signs 07/03/24 10:58 Height 6 ft Weight 222 lb BMI 30.1 BP 170/94 H Blood Pressure Location Lt brachial Position Sitting Respiration 16 Pulse 80 Pulse Source Pulse Oximeter Pulse Oximetry (%) 99 Oxygen Delivery Method Room Air Intake Visit Reasons: s/pm Left L3 Sprint Radio Reporter Required: No Allergies No Known Allergies Allergy (Verified 07/03/24 10:59) Medication List - Last Reconciled 07/03/24 by Elissa Louise LPN albuterol sulfate 90 mcg/actuation (Ventolin HFA) 1 inh inhalation QID PRN finasteride 5 mg PO DAILY 90 days fluticasone propionate 50 mcg/actuation (Flonase Allergy Relief) 1 spray intranasal DAILY omeprazole 40 mg PO DAILY Yuflyma(CF) Autoinjector (adalimumab-aaty) 40 mg (0.4 mL) subcut Q2W NS HPI HPI s/pm Left L3 Sprint: Details: History of Present Illness The patient is a 68-year-old male presenting with a follow-up for pain management involving a left-sided medial branch nerve stimulator. Following its placement, he reports significant relief of leg pain and partial relief in back pain. Previously, his leg pain would intensify in the morning, affecting movement. A noted reduction of pain radiating to the top of the foot suggests some success with current treatment. Around two days ago, while outside, the patient lost the magnetic lead that is essential for his stimulator's function and subsequently requested a replacement. Due to decreasing symptoms on the right side, he prefers canceling the upcoming scheduled procedure on the right side, as he feels this isn't the right course of action presently. His evaluation is scheduled for about seven weeks from now for the removal of the left-sided lead, provided he maintains symptomatic improvement. Pain Description - Onset and Timing: Chronic, with notable improvement since the left-sided stimulator placement. - Quality and Character: Leg and back pain, predominantly in the left side; radiating to foot less frequently. - Primary Location: Left leg, specific to the branch nerves; accompanying back pain. - Exacerbating Factors: Positioning during sleep worsens leg pain in the morning. - Relieving Factors: Medial branch nerve stimulator has provided significant leg pain relief. - Activities Affected: Pain was affecting morning movements especially, but that impact has now reduced. Physical Exam Results Pain Management - Affect: Pain has improved; positive outlook on current pain relief. - Analgesia: Current level of pain reduced due to nerve stimulator; preferred to avoid unnecessary procedures. - Adverse Effects: None reported related to treatment. - Activities of Daily Living: Improved due to reduced pain; less difficulty in waking movements. - Aberrant Drug Related Behaviors: None noted. [facility] Medical History Osteoarthritis of hands, bilateral GERD (gastroesophageal reflux disease) Chronic pain syndrome Postlaminectomy syndrome Spondylosis of lumbar spine Primary osteoarthritis, left hand Primary osteoarthritis, right hand Osteoarthritis of neck Nicotine dependence, unspecified, uncomplicated Failed back syndrome Benign essential HTN Surgical History CTS (carpal tunnel syndrome) Hx of decompressive lumbar laminectomy Family History Father No problems noted. Mother No problems noted. Social History Housing: House Alcohol intake: current Alcohol intake frequency: a few times a week Alcohol type: beer Patient Tobacco Use Status: Current someday Tobacco user Tobacco use type: Cigar Cigarettes Per Day: 1 e-Cigarette/Vaping Use: Never Used Second Hand Smoke Exposure: Yes service: No Current occupational status: unemployed Cognitive needs: No Hearing needs: No Vision needs: Yes (Glasses) Physical Exam Vital Signs: Last Vital Signs Pulse 80 07/03/24 10:58 Resp 16 07/03/24 10:58 BP 170/94 H 07/03/24 10:58 Pulse Ox 99 07/03/24 10:58 Oxygen Delivery Method Room Air 07/03/24 10:58 BMI result Body Mass Index 30.1 Assessment & Plan Assessment & Plan (1) Dysfunction of the multifidus muscles, lumbar region: Code(s): M62.85 - Dysfunction of the multifidus muscles, lumbar region Category: Medical (2) Spondylosis of lumbar spine: Code(s): M47.816 - Spondylosis without myelopathy or radiculopathy, lumbar region Category: Medical (3) Back pain with left-sided radiculopathy: Code(s): M54.10 - Radiculopathy, site unspecified Category: Medical Plan Plan Patient was informed and verbally consented to the use of an ambient scribe for clinic note documentation during this visit. 1. Expected Cancellation Of The Scheduled Procedure For Right-Sided Medial Branch Nerve Will cancel the right-sided procedure due to decreased symptoms; follow up in seven weeks to remove the lead on the left side. 2. Back Pain Currently no urgent interventions, focusing on symptomatic relief provided by existing stimulator. Discussion Notes During the consultation, the patient conveyed notable relief from his leg and potentially some back pain following the left-sided medial branch nerve stimulator placement. We discussed the scheduling of the planned right-side procedure and agreed to its cancellation, as symptoms had decreased significantly, making the procedure unnecessary at present. We also scheduled a follow-up in seven weeks to remove the left-sided lead . The patient was informed of potential consequences and ensured understanding of future steps, benefitting from continued reduced symptoms. Patient Instructions - Continue monitoring pain levels and report any significant changes. - Maintain current activities that do not exacerbate pain. - Follow-up scheduled in seven weeks for left-sided lead removal. - Be observant of any new or worsening symptoms and seek care if necessary. Coding Level of Care Code Est Pt Level 3 (90746) Diagnoses Dysfunction of the multifidus muscles, lumbar region M62.85 Spondylosis of lumbar spine M47.816 Back pain with left-sided radiculopathy M54.10
[2024-07-03 10:58] VITALS: BP 170/94; PULSE 80; RESP 16; O2SAT 99; BMI 30.1
== END 2024-07-03 11:31 | disposition home or self-care (01) ==
PROVIDERS: PCP Internal Medicine; Visit Provider Internal Medicine
DX: M62.85 Dysfunction of the multifidus muscles, lumbar region (principal); M47.816 Spondylosis without myelopathy or radiculopathy, lumbar region; M54.10 Radiculopathy, site unspecified
CPT/HCPCS: 99024

== ENCOUNTER → 2024-07-03 10:47 | Outpatient (BNVA) | payer MEDICARE, SELFPAY | PROVIDERS: PCP Internal Medicine; Visit Provider Internal Medicine ==

== ENCOUNTER 2024-08-12 10:44 | Outpatient (REF) | payer MEDICARE, SELFPAY ==
[2024-08-12 11:49] LABS: Basophils Percent Auto 0.4 % (0-2); Eosinophils Percent Auto 0.4 % (0-4); Hematocrit 41.9 % (42.0-52.0); Hemoglobin 15.3 g/dl (14.0-18.0); Imm Gran Abs Auto 0.03 X10*3/uL (0.00-0.03); Imm Gran Pct Auto 0.4 % (0.0-0.4); Lymphocytes Absolute Auto 1.3 X10*3/uL (1.2-4.9); Lymphocytes Percent Auto 16.7 % (20-40); MANUAL DIFF FLAG SCAN; Mean Corpuscular HGB Conc 36.5 g/dl (31.0-36.0); Mean Corpuscular Hemoglobin 31.7 pg (27.0-33.0); Mean Corpuscular Volume 86.9 fL (80.0-98.0); Monocytes Absolute Auto 0.6 X10*3/uL (0.1-1.2); Monocytes Percent Auto 8.3 % (2-11); Neutrophils Absolute Auto 5.6 x10*3/uL (2.0-8.3); Neutrophils Percent Auto 73.8 % (45-73); PLT CLUMP 1; Red Blood Count 4.82 X10*6/uL (4.60-5.80); Red Cell Distribution Width 11.5 % (11.0-16.0); SCAN SMEAR FLAG 1
[2024-08-12 12:25] LABS: Alanine Aminotransferase 29 U/L (0-40); Albumin Level 4.1 g/dL (3.5-5.0); Alkaline Phosphatase 65 U/L (39-117); Anion Gap 11 (12-20); Aspartate Amino Transferase 30 U/L (5-37); Bilirubin Total 0.9 mg/dL (0.0-1.0); Blood Urea Nitrogen 11 mg/dL (9-16); C Reactive Protein 0.48 mg/dL (< or = 0.50); Calcium 9.2 mg/dL (8.4-10.2); Carbon Dioxide 24 mmol/L (22-29); Chloride 108 mmol/L (96-108); Estimated Glomerular Filt Rate > 60; Glucose Random 101 mg/dL (60-115); Potassium 4.3 mmol/L (3.3-5.1); Sodium 139 mmol/L (135-145); Total Protein 7.1 g/dL (6.5-8.0)
[2024-08-12 12:27] LABS: Erythrocyte Sedimentation Rate 7 MM/HR (0-15)
[2024-08-12 13:11] LABS: Platelet Count 224 X10*3/uL (160-400); White Blood Count 7.6 X10*3/uL (4.8-10.8)
[2024-08-12 13:12] LABS: SLIDE REVIEW VERIFIED
[2024-08-13 08:44] LABS: CRP High Sensitivity 4.5 mg/L
[2024-08-15 00:24] LABS: TS Negative Control Passed; TS Panel A 1; TS Panel B 0; TS Positive Control Passed; TSpotTB Negative (Negative)
== END 2024-08-12 10:45 | disposition home or self-care (01) ==
LOC: HO.LAB 10:44
PROVIDERS: PCP Internal Medicine; Visit Provider Student in an Organized Health Care Education/Training Program
DX: R06.09 Other forms of dyspnea (principal); Z11.1 Encounter for screening for respiratory tuberculosis
CPT/HCPCS: 36415; 80053; 85025; 85652; 86140; 86141; 86481

== ENCOUNTER 2024-08-13 12:51 | Outpatient (AMB) | payer MEDICARE, SELFPAY ==
[2024-08-13 12:53] VITALS: BP 142/78; PULSE 85; O2SAT 96; BMI 30.6
--- NOTE | 2024-08-13 12:53 | A.OFFVIS_ITS ---
Vital Signs 08/13/24 12:53 Height 6 ft Weight 225 lb 8.526 oz BMI 30.6 BP 142/78 H Blood Pressure Location Lt brachial Position Sitting Pulse 85 Pulse Source Pulse Oximeter Pulse Oximetry (%) 96 Oxygen Delivery Method Room Air Intake Visit Reasons: joint pain/ scheduled per MD & nurse req Intake Note: Patient states he is here for flare up, on Yuflyma, has not taken full effect after not being on it for five weeks. Patient states he is having joint pains. Patient states he did take some Prednisone, which helped. He states the pain is worse in his knees. Allergies No Known Allergies Allergy (Verified 08/13/24 12:58) Medication List - Last Reconciled 08/13/24 by Susanne Fowler MD albuterol sulfate 90 mcg/actuation (Ventolin HFA) 1 inh inhalation QID PRN finasteride 5 mg PO DAILY 90 days fluticasone propionate 50 mcg/actuation (Flonase Allergy Relief) 1 spray intranasal DAILY omeprazole 40 mg PO DAILY Yuflyma(CF) Autoinjector (adalimumab-aaty) 40 mg (0.4 mL) subcut Q2W NS HPI Comments Details: Patient is a 68-year-old male current everyday smoker with hypertension, polyarticular osteoarthritis, seronegative rheumatoid arthritis here today for an urgent visit for joint pain concerning for a flare. Interval History: Patient last seen 04/13/[address] Saha. At that time patient was doing well on adalimumab 40 mg every other week. Since then he unfortunately had issues with his insurance and was off of his medication for 2 months and recently able to restart 1 week ago. A few days ago he had sudden onset of polyarticular joint pain involving his wrists, knees, shoulders and elbows. Took 1 of his neighbors Prednisone pills (15 mg) and today feels better Rheumatologic History: Seroneg dx 12/02 MTX 2017 for 3-6 months ineffective PDN throughout Enbrel 11/2022-04/2023 ineffective Adalimumab 11/2023 effective Current Rheumatology Medication(s): Adalimumab 40mg every 2 weeks [facility] Medical History Osteoarthritis of hands, bilateral GERD (gastroesophageal reflux disease) Chronic pain syndrome Postlaminectomy syndrome Spondylosis of lumbar spine Primary osteoarthritis, left hand Primary osteoarthritis, right hand Osteoarthritis of neck Nicotine dependence, unspecified, uncomplicated Failed back syndrome Benign essential HTN Surgical History CTS (carpal tunnel syndrome) Hx of decompressive lumbar laminectomy Family History Father No problems noted. Mother No problems noted. Social History Housing: House Alcohol intake: current Alcohol intake frequency: a few times a week Alcohol type: beer Patient Tobacco Use Status: Current someday Tobacco user Tobacco use type: Cigar Cigarettes Per Day: 1 e-Cigarette/Vaping Use: Never Used Second Hand Smoke Exposure: Yes service: No Current occupational status: unemployed Cognitive needs: No Hearing needs: No Vision needs: Yes (Glasses) Review of Systems Const Details: Review of Systems Constitutional: Denies fever, chills, weight loss ENT: Denies vision changes, eye pain or eye redness, dental caries, dry mouth GI: Denies nausea, vomiting, diarrhea, abdominal pain, change in BM Pulm: Denies SOB, MANN, hemoptysis, wheezing Cards: Denies chest pain, palpitations Skin: Denies Raynaud's, rash, nail changes, photosensitivity, DIRECTOR OF CORPORATE RESPONSIBILITY: Denies headaches, weakness, paresthesias, recurrent falls MSK: as per HPI All other systems reviewed and are unremarkable except noted above Physical Exam Vital Signs: Last Vital Signs Pulse 85 08/13/24 12:53 BP 142/78 H 08/13/24 12:53 Pulse Ox 96 08/13/24 12:53 Oxygen Delivery Method Room Air 08/13/24 12:53 BMI result Body Mass Index 30.6 Vital signs reviewed Physical Examination CONSTITUITIONAL Patient alert and cooperative. Well appearing and in no apparent painful distress HEENT Conjunctiva and sclera clear. ?Pupils equal round and reactive to light. ?No lymphadenopathy. ? CHEST/RESPIRATORY SYSTEM Normal respiratory effort and able to speak in complete sentences. ?Clear to auscultation bilaterally. ?No crackles, rales, rhonchi, wheezes heard. CARDIAC SYSTEM Regular rate and rhythm. ?S1 and S2 heard no murmurs. 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 No deformities noted. ?No synovitis noted to the MCPs, PIPs or DIPs. ?No tenderness to palpation of these joints. Wrists: ?Full range of motion at the wrists without pain. ?No tenderness to palpation or synovitis noted to the wrists. Elbows: Full range of motion without pain. No tenderness, weakness, swelling, increased warmth or erythema. Shoulders: Full range of motion without pain. No tenderness, weakness, swelling, increased warmth or erythema. Hips: Full range of motion without pain. Hip bursa: No tenderness to palpation Knees: ?Full range of motion. ?No tenderness, swelling, increased warmth or erythema.?No effusion or crepitations Ankles: Full range of motion. ?No tenderness, swelling, increased warmth or erythema.? Feet: ?Negative squeeze test. ?No tenderness to palpation or swelling of the MTPs. Tender points:?No tenderness to palpation of the bilateral trapezius, supraspinatus, greater trochanters, anterior costochondral junctions, bilateral gluteal areas, bilateral suboccipital muscle insertions SKIN Skin intact without rashes. Results Reviewed Results Reviewed: Laboratory Tests 08/12/24 11:01 WBC 7.6 RBC 4.82 Hgb 15.3 Hct 41.9 L Plt Count 224 ESR 7 Sodium 139 Potassium 4.3 Chloride 108 Carbon Dioxide 24 BUN 11 Creatinine 0.81 Total Bilirubin 0.9 AST 30 ALT 29 C-Reactive Protein 0.48 Immunology labs 05/31/21 07:56 Rheumatoid Factor < 15.0 Cycl Citrul Peptide IgG <16 Infectious serologies 01/23/24 08/12/24 07:36 11:01 Hepatitis A IgM Ab Nonreactive Hep Bs Antigen Negative Hep Bs Antibody NONREACTIVE Hep B Core Total Ab Nonreactive Hepatitis C Ab (EIA) Nonreactive TB Test (T-Spot) Com Pending Assessment & Plan Assessment & Plan (1) Rheumatoid arthritis: Comment: seroneg dx 12/02 MTX 2018 for 3-6 months ineffective PDN throughout Enbrel 11/2022-04/2023 ineffective Adalimumab 11/2023 effective Code(s): M06.9 - Rheumatoid arthritis, unspecified Category: Medical Qualifiers: Rheumatoid arthritis location: multiple sites Rheumatoid factor presence: without rheumatoid factor Qualified Code(s): M06.09 - Rheumatoid arthritis without rheumatoid factor, multiple sites Plan: #Rheumatoid arthritis Patient is a 68-year-old male with seronegative rheumatoid arthritis here today for an urgent visit for flare of his arthritis. Exam unremarkable likely because he took the 15 mg of prednisone We will give him a prednisone taper to cover him for the flare while we wait for the adalimumab to work Plan - Prednisone 15 mg for 5 days, 10 mg for 5 days then 5 mg for 5 days and stop - continue adalimumab 40 mg every other week - RTC 10/14/24 (2) Encounter for monitoring of adalimumab therapy: Code(s): Z51.81 - Encounter for therapeutic drug level monitoring; Z79.620 - snf (current) use of immunosuppressive biologic Plan: #Long-term Use of TNF Inhibitors: Adalimumab Discussed with the patient the benefits and risks of TNF inhibitors for the management of the rheumatic condition Benefits include reduce pain, maintenance of remission and reduction of flares as well as ?progression of the disease Risks include injection sites/infusion reactions, serious infections (such as bacterial infections, opportunistic infections), malignancy, delaminating syndromes, autoimmune phenomena, CHF exacerbations, palmar plantar psoriasis and cytopenias Recommended rotating injection sites, and holding medication during and for up to 1 week after resolution of a febrile illness or open skin wound Plan I spent 32 minutes reviewing the record and labs, taking a history, examining the patient, discussing the treatment plan, ordering diagnostic work up and documenting in the medical record Medications: New prednisone Take 3 tablets for 5 days then 2 tablets for 5 days then 1 tablet for 5 days 5 mg PO DIRECTED 30 tabs 0RF M06.09 - Rheumatoid arthritis without rheumatoid factor, multiple sites Coding Level of Care Code Est Pt Level 4 (07179) Complex EM visit Add On G2211 Diagnoses Rheumatoid arthritis of multiple sites with negative rheumatoid factor M06.09 Rheumatoid arthritis location: multiple sites Rheumatoid factor presence: without rheumatoid factor Encounter for monitoring of adalimumab therapy Z51.81; Z79.620
== END 2024-08-13 13:34 | disposition home or self-care (01) ==
LOC: HO.RHE 12:51
PROVIDERS: PCP Internal Medicine; Visit Provider Student in an Organized Health Care Education/Training Program
DX: M06.09 Rheumatoid arthritis without rheumatoid factor, multiple sites (principal); Z51.81 Encounter for therapeutic drug level monitoring; Z79.620 Long term (current) use of immunosuppressive biologic
CPT/HCPCS: 99214; G2211

== ENCOUNTER → 2024-08-13 12:51 | Outpatient (BNVA) | payer MEDICARE, SELFPAY | PROVIDERS: PCP Internal Medicine; Visit Provider Student in an Organized Health Care Education/Training Program | DX: M06.09 Rheumatoid arthritis without rheumatoid factor, multiple sites (principal); Z51.81 Encounter for therapeutic drug level monitoring; Z79.620 Long term (current) use of immunosuppressive biologic | CPT/HCPCS: 99212 ==

== ENCOUNTER 2024-08-21 09:23 | Outpatient (AMB) | payer MEDICARE, SELFPAY ==
[2024-08-21 09:33] VITALS: BP 159/90; PULSE 74; RESP 16; O2SAT 97; BMI 30.5
--- NOTE | 2024-08-21 09:33 | MHC.OFFVIS ---
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: No Allergies No Known Allergies Allergy (Verified 08/21/24 09:34) Medication List - Last Reconciled 08/21/24 by Elissa Louise LPN albuterol sulfate 90 mcg/actuation (Ventolin HFA) 1 inh inhalation QID PRN finasteride 5 mg PO DAILY 90 days fluticasone propionate 50 mcg/actuation (Flonase Allergy Relief) 1 spray intranasal DAILY omeprazole 40 mg PO DAILY prednisone 5 mg PO DIRECTED Yuflyma(CF) Autoinjector (adalimumab-aaty) 40 mg (0.4 mL) subcut Q2W NS HPI HPI Left Sprint removal: Details: History of Present Illness The patient is a 69-year-old male presenting with management and assessment for persistent lower back pain. He reports previous treatment with a peripheral nerve stimulation device which yielded approximately 50% temporary relief in symptoms. The pain persists mainly across the lumbar region, with mild radiation to the legs when engaging in activities. Prior MRI from 2021 shows lumbar vertebral marrow edema and endplate degeneration, suggesting chronic inflammation. Patient's pain uniquely worsens during flexion and extension maneuvers and when transitioning from a flexed posture. He retains some capacity to engage in physical tasks but notes pain episodes with substantial activity. He is set to embark on travel for two weeks beginning September 13, with plans to reassess his condition upon returning. Pain Description - Onset and Timing: Chronic and consistent. - Quality and Character: Dull, persistent lower back pain with stints of sharp discomfort upon movement. - Primary Location: Lower back. - Areas of Radiation: Mild radiation to legs noted during activity. - Exacerbating Factors: Activity involving bending and prolonged physical tasks, such as mowing. - Relieving Factors: None effectively noted since the onset. - Functional Interference: Challenges rising from bending, prolonged standing periods. Physical Exam - Appears afebrile. - Alert and oriented. - Mood and affect appropriate. - Follows and participates in conversation appropriately. - Respiratory effort is unlabored. - Able to transition from sit to stand unassisted. - Ambulates with bilaterally normal heel strike and toe off. - Able to stand and walk on toes and heels. - Lead removed with tip intact. Results - MRI (2021): Demonstrated diffuse marrow edema in lumbar vertebral bodies, Schmorl's node, and endplate degeneration, indicating active inflammation. Pain Management - Affect: Pain affects daily functionality and physical well-being. - Analgesia: Peripheral nerve stimulation used with partial effect; current pain management strategy being reconsidered. - Adverse Effects: No side effects reported from recent pain control measures. - Activities of Daily Living: Pain impedes movements involving bending, daily activities require caution. - Aberrant Drug Related Behaviors: None reported. [facility] Medical History Osteoarthritis of hands, bilateral GERD (gastroesophageal reflux disease) Chronic pain syndrome Postlaminectomy syndrome Spondylosis of lumbar spine Primary osteoarthritis, left hand Primary osteoarthritis, right hand Osteoarthritis of neck Nicotine dependence, unspecified, uncomplicated Failed back syndrome Benign essential HTN Surgical History CTS (carpal tunnel syndrome) Hx of decompressive lumbar laminectomy Family History Father No problems noted. Mother No problems noted. Social History Housing: House Alcohol intake: current Alcohol intake frequency: a few times a week Alcohol type: beer Patient Tobacco Use Status: Current someday Tobacco user Tobacco use type: Cigar Cigarettes Per Day: 1 e-Cigarette/Vaping Use: Never Used Second Hand Smoke Exposure: Yes service: No Current occupational status: unemployed Cognitive needs: No Hearing needs: No Vision needs: Yes (Glasses) Physical Exam Vital Signs: Last Vital Signs Pulse 74 08/21/24 09:33 Resp 16 08/21/24 09:33 BP 159/90 H 08/21/24 09:33 Pulse Ox 97 08/21/24 09:33 Oxygen Delivery Method Room Air 08/21/24 09:33 BMI result Body Mass Index 30.5 Assessment & Plan Assessment & Plan (1) Postlaminectomy syndrome: Code(s): M96.1 - Postlaminectomy syndrome, not elsewhere classified Category: Medical (2) Spondylosis of lumbar spine: Code(s): M47.816 - Spondylosis without myelopathy or radiculopathy, lumbar region Category: Medical (3) Dysfunction of the multifidus muscles, lumbar region: Code(s): M62.85 - Dysfunction of the multifidus muscles, lumbar region Category: Medical Plan Plan The plan is to reassess the patient's pain state following his travel, considering procedural interventions like basivertebral nerve ablation to target the nerve pathways contributing to his pain. The literature on potential procedures was given, and the patient's travel arrangements discussed, focusing on ensuring safety and pain management during his activities. Upon return, he will undergo a reassessment to determine the potential need for further diagnostics or procedural interventions based on symptom progression. Patient was informed and verbally consented to the use of an ambient scribe for clinic note documentation during this visit. Discussion Notes I discussed with the patient the long-term implications of lumbar endplate degeneration and inflammation as seen on the 2021 MRI. The possibility of a vertebral nerve ablation procedure was explained, including its potential to alleviate nerve-related pain. We reviewed the risks and benefits, including possible pain relief without structural modification. The patient received educational material to further understand this option. Given his travel plans, he agreed to monitor symptoms during travel and to consult post-return to consider diagnostic evaluations and treatment options further based on symptom onset and change. Patient Instructions - Travel as planned on September 13 and monitor pain symptoms. - Review procedural literature provided for vertebral nerve ablation. - Revisit office post-travel for a follow-up assessment. - Contact the clinic promptly if pain significantly worsens or new symptoms emerge during travel. - Engage in activities with caution to minimize exacerbation of back pain. Coding Level of Care Code Est Pt Level 3 (98417) Diagnoses Postlaminectomy syndrome M96.1 Spondylosis of lumbar spine M47.816 Dysfunction of the multifidus muscles, lumbar region M62.85
== END 2024-08-21 09:55 | disposition home or self-care (01) ==
LOC: HO.PMC 09:24
PROVIDERS: PCP Internal Medicine; Visit Provider Internal Medicine
DX: M96.1 Postlaminectomy syndrome, not elsewhere classified (principal); M47.816 Spondylosis without myelopathy or radiculopathy, lumbar region; M62.85 Dysfunction of the multifidus muscles, lumbar region
CPT/HCPCS: 99213

== ENCOUNTER → 2024-08-21 09:23 | Outpatient (BNVA) | payer MEDICARE, SELFPAY | PROVIDERS: PCP Internal Medicine; Visit Provider Internal Medicine | DX: M96.1 Postlaminectomy syndrome, not elsewhere classified (principal); M47.816 Spondylosis without myelopathy or radiculopathy, lumbar region; M62.85 Dysfunction of the multifidus muscles, lumbar region | CPT/HCPCS: 99212 ==

== ENCOUNTER 2024-10-14 12:26 | Outpatient (AMB) | payer MEDICARE, SELFPAY ==
--- NOTE | 2024-10-14 12:32 | A.OFFVIS_ITS ---
Vital Signs 10/14/24 12:37 Height 6 ft Weight 215 lb 6.266 oz BMI 29.2 BP 162/94 H Blood Pressure Location Lt brachial Position Sitting Pulse 83 Pulse Source Pulse Oximeter Pulse Oximetry (%) 97 Oxygen Delivery Method Room Air Intake Visit Reasons: RA Intake Note: Patient Presents for RA follow up. Allergies No Known Allergies Allergy (Verified 10/14/24 12:37) Medication List - Last Reconciled 10/14/24 by Susanne Fowler MD albuterol sulfate 90 mcg/actuation (Ventolin HFA) 1 inh inhalation QID PRN finasteride 5 mg PO DAILY 90 days fluticasone propionate 50 mcg/actuation (Flonase Allergy Relief) 1 spray intranasal DAILY omeprazole 40 mg PO DAILY Yuflyma(CF) Autoinjector (adalimumab-aaty) 40 mg (0.4 mL) subcut Q2W NS HPI Comments Details: Patient is a 68-year-old male current everyday smoker with hypertension, polyarticular osteoarthritis, seronegative rheumatoid arthritis here today for follow up Interval History: Patient last seen 08/13/24 with me. At that time he was being seen for an urgent visit for a flare of his rheumatoid arthritis on a background of being off his Humira due to insurance issues. There was no evidence of synovitis at that time because he took 15 mg of prednisone from a neighbor what he was given a prednisone taper and told to continue his medications Today, He is doing well Flare resolved Complaining of back pain Rheumatologic History: Seroneg dx 12/02 MTX 2017 for 3-6 months ineffective PDN throughout Enbrel 11/2022-04/2023 ineffective Adalimumab 11/2023 effective Current Rheumatology Medication(s): Adalimumab 40mg every 2 weeks [facility] Medical History Osteoarthritis of hands, bilateral GERD (gastroesophageal reflux disease) Chronic pain syndrome Postlaminectomy syndrome Spondylosis of lumbar spine Primary osteoarthritis, left hand Primary osteoarthritis, right hand Osteoarthritis of neck Nicotine dependence, unspecified, uncomplicated Failed back syndrome Benign essential HTN Surgical History CTS (carpal tunnel syndrome) Hx of decompressive lumbar laminectomy Family History Father No problems noted. Mother No problems noted. Social History Housing: House Alcohol intake: current Alcohol intake frequency: a few times a week Alcohol type: beer Patient Tobacco Use Status: Current someday Tobacco user Tobacco use type: Cigar Cigarettes Per Day: 1 e-Cigarette/Vaping Use: Never Used Second Hand Smoke Exposure: Yes service: No Current occupational status: unemployed Cognitive needs: No Hearing needs: No Vision needs: Yes (Glasses) Review of Systems Const Details: Review of Systems Constitutional: Denies fever, chills, weight loss ENT: Denies vision changes, eye pain or eye redness, dental caries, dry mouth GI: Denies nausea, vomiting, diarrhea, abdominal pain, change in BM Pulm: Denies SOB, MANN, hemoptysis, wheezing Cards: Denies chest pain, palpitations Skin: Denies Raynaud's, rash, nail changes, photosensitivity, HEATING FIXTURE TENDER: Denies headaches, weakness, paresthesias, recurrent falls MSK: as per HPI All other systems reviewed and are unremarkable except noted above Physical Exam Vital Signs: BMI result Body Mass Index 29.2 Vital signs reviewed Physical Examination CONSTITUITIONAL Patient alert and cooperative. Well appearing and in no apparent painful distress HEENT Conjunctiva and sclera clear. ?Pupils equal round and reactive to light. ?No lymphadenopathy. ? CHEST/RESPIRATORY SYSTEM Normal respiratory effort and able to speak in complete sentences. ?Clear to auscultation bilaterally. ?No crackles, rales, rhonchi, wheezes heard. CARDIAC SYSTEM Regular rate and rhythm. ?S1 and S2 heard no murmurs. 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 No deformities noted. ?No synovitis noted to the MCPs, PIPs or DIPs. ?No tenderness to palpation of these joints. Herbedens nodes Wrists: ?Full range of motion at the wrists without pain. ?No tenderness to palpation or synovitis noted to the wrists. Elbows: Full range of motion without pain. No tenderness, weakness, swelling, increased warmth or erythema. Shoulders: Full range of motion without pain. No tenderness, weakness, swelling, increased warmth or erythema. Hips: Full range of motion without pain. Hip bursa: No tenderness to palpation Knees: ?Full range of motion. ?No tenderness, swelling, increased warmth or erythema.?No effusion. Crepitations felt bilaterally Ankles: Full range of motion. ?No tenderness, swelling, increased warmth or erythema.? Feet: ?Negative squeeze test. ?No tenderness to palpation or swelling of the MTPs. Tender points:?No tenderness to palpation of the bilateral trapezius, supras pinatus, greater trochanters, anterior costochondral junctions, bilateral gluteal areas, bilateral suboccipital muscle insertions SKIN Skin intact without rashes. Results Reviewed Results Reviewed: Laboratory Tests 08/12/24 11:01 WBC 7.6 RBC 4.82 Hgb 15.3 Hct 41.9 L Plt Count 224 ESR 7 Sodium 139 Potassium 4.3 Chloride 108 Carbon Dioxide 24 BUN 11 Creatinine 0.81 AST 30 ALT 29 Alkaline Phosphatase 65 C-Reactive Protein 0.48 MR L spine 05/2021 FINDINGS: There are 5 nonrib-bearing lumbar-type vertebral bodies. Chronic endplate Schmorl's nodes at the lower thoracic levels and throughout the lumbar spine. There is an inferior endplate Schmorl's nodes surrounded by mild marrow edema at L4. There is marrow edema within the L5 and S1 posterior elements bilaterally that is most likely degenerative or inflammatory. No acute fractures. There is disc desiccation at all lumbar levels the exception of L1 on L2. Heterogeneous marrow signal throughout the lumbar spine. Conus terminates at the L1-L2 level. There is bilateral perinephric stranding. L1-L2: Diffuse annular disc bulge with a superimposed left lateral disc protrusion that approaches and may contact the extraforaminal left L1 nerve root, progressed. L2-L3: Diffuse annular disc bulge and moderate bilateral facet arthropathy and ligamentum thickening. No central canal stenosis. Left lateral disc osteophyte protrusion results in mild to moderate left foraminal stenosis and probable mass effect on the extraforaminal left L2 nerve root which is unchanged. L3-L4: There is a right paracentral/right lateral disc protrusion which is increased in size, resulting in worsening compression of the traversing right L4 nerve root within the right subarticular zone and worsening moderate right foraminal stenosis with compression of the extraforaminal right L3 nerve root. A left lateral disc osteophyte protrusion is also progressed that along with advanced facet arthropathy results in moderate to severe left foraminal stenosis and compression of the exiting left L3 nerve root. L4-L5: Diffuse disc osteophyte complex and severe bilateral facet arthropathy and ligamentum flavum thickening. Laminectomy changes. Findings in concert result in persistent severe right subarticular zone stenosis with compression of the traversing right L5 nerve root in stable severe bilateral foraminal stenosis with compression of the exiting L4 nerve roots bilaterally. Mild central canal stenosis. L5-S1: Diffuse disc osteophyte complex and severe bilateral facet arthropathy and ligamentum flavum pinning. Mild narrowing of the central canal. Disc osteophyte and facet arthropathy result in worsening severe bilateral foraminal stenosis with compression of the exiting L5 nerve roots bilaterally. A new 3 mm synovial cyst projecting anteriorly from the lateral margin of the severely degenerative left facet joint also contributes towards mass effect on the extraforaminal left L5 nerve root. IMPRESSION: - At L5-S1, progressive advanced multifactorial degenerative changes result in worsening severe bilateral foraminal stenosis with compression of the exiting L5 nerve roots bilaterally. A new 3 mm synovial cyst projecting anteriorly from the lateral margin of the severely degenerative left facet joint also contributes towards mass effect on the extraforaminal left L5 nerve root. - At L4-L5, advanced multifactorial degenerative changes result in persistent severe right subarticular zone stenosis with compression of the traversing right L5 nerve root in stable severe bilateral foraminal stenosis with compression of the exiting L4 nerve roots bilaterally. - At L3-L4, a right paracentral/right lateral disc protrusion is increased in size, resulting in worsening compression of the traversing right L4 nerve root within the right subarticular zone and worsening moderate right foraminal stenosis with compression of the extraforaminal right L3 nerve root. A left lateral disc osteophyte protrusion is also progressed that along with advanced facet arthropathy results in moderate to severe left foraminal stenosis and compression of the exiting left L3 nerve root. - At L2-L3, a left lateral disc osteophyte protrusion results in mild to moderate left foraminal stenosis and probable mass effect on the extraforaminal left L2 nerve root which is unchanged. - At L1-L2, there is a progressive far left lateral disc protrusion that may contact the extraforaminal left L1 nerve root. - There is an inferior endplate Schmorl's nodes surrounded by mild marrow edema at L4. - There is marrow edema within the L5 and S1 posterior elements bilaterally that is most likely degenerative or inflammatory. No acute fractures. Assessment & Plan Assessment & Plan (1) Rheumatoid arthritis: Comment: seroneg dx 12/02 MTX 2018 for 3-6 months ineffective PDN throughout Enbrel 11/2022-04/2023 ineffective Adalimumab 11/2023 effective Code(s): M06.9 - Rheumatoid arthritis, unspecified Category: Medical Qualifiers: Rheumatoid arthritis location: multiple sites Rheumatoid factor presence: without rheumatoid factor Qualified Code(s): M06.09 - Rheumatoid arthritis without rheumatoid factor, multiple sites Plan: #Rheumatoid arthritis Patient is a 68-year-old male with seronegative rheumatoid arthritis here today for follow up Currently in remission Flare resolved. Plan - Adalimumab 40 mg every other week - RTC 6 months - Labs before visit: CBC, CMP, ESR, CRP, hepatitis panel, T spot (2) Spondylosis of lumbar spine: Code(s): M47.816 - Spondylosis without myelopathy or radiculopathy, lumbar region Category: Medical Plan: #Degenerative lumbar disease Patient with known degenerative lumbar spondylosis. Complaining of worsening back pain. Has previously gotten surgery and other procedures but still has persistent pain. We will try low-dose tramadol Plan - Tramadol 50mg bid (3) Encounter for monitoring of adalimumab therapy: Code(s): Z51.81 - Encounter for therapeutic drug level monitoring; Z79.620 - FDC (current) use of immunosuppressive biologic Plan: #Long-term Use of TNF Inhibitors: Adalimumab Discussed with the patient the benefits and risks of TNF inhibitors for the management of the rheumatic condition Benefits include reduce pain, maintenance of remission and reduction of flares as well as ?progression of the disease Risks include injection sites/infusion reactions, serious infections (such as bacterial infections, opportunistic infections), malignancy, delaminating syndromes, autoimmune phenomena, CHF exacerbations, palmar plantar psoriasis and cytopenias Recommended rotating injection sites, and holding medication during and for up to 1 week after resolution of a febrile illness or open skin wound Plan I spent 32 minutes reviewing the record and labs, taking a history, examining the patient, discussing the treatment plan, ordering diagnostic work up and documenting in the medical record Orders: Orders Comprehensive Met. Panel 6 Months M06.09 - Rheumatoid arthritis without rheumatoid factor, multiple sites Erythrocyte Sedimentation Rate 6 Months M06.09 - Rheumatoid arthritis without rheumatoid factor, multiple sites Hepatitis A,B,C Profile 6 Months M06.09 - Rheumatoid arthritis without rheumatoid factor, multiple sites T Spot TB 6 Months M06.09 - Rheumatoid arthritis without rheumatoid factor, multiple sites Complete Blood Count Auto Diff 6 Months M06.09 - Rheumatoid arthritis without rheumatoid factor, multiple sites C Reactive Protein 6 Months M06.09 - Rheumatoid arthritis without rheumatoid factor, multiple sites Medications: New tramadol 50 mg PO BID PRN 60 tabs 5RF pain M47.816 - Spondylosis without myelopathy or radiculopathy, lumbar region Coding Level of Care Code Est Pt Level 3 (84842) Complex EM visit Add On G2211 Diagnoses Rheumatoid arthritis of multiple sites with negative rheumatoid factor M06.09 Rheumatoid arthritis location: multiple sites Rheumatoid factor presence: without rheumatoid factor Spondylosis of lumbar spine M47.816 Encounter for monitoring of adalimumab therapy Z51.81; Z79.620
[2024-10-14 12:37] VITALS: BP 162/94; PULSE 83; O2SAT 97; BMI 29.2
== END 2024-10-14 13:03 | disposition home or self-care (01) ==
LOC: HO.RHE 12:28
PROVIDERS: PCP Internal Medicine; Visit Provider Student in an Organized Health Care Education/Training Program
DX: M06.09 Rheumatoid arthritis without rheumatoid factor, multiple sites (principal); M47.816 Spondylosis without myelopathy or radiculopathy, lumbar region; Z51.81 Encounter for therapeutic drug level monitoring; Z79.620 Long term (current) use of immunosuppressive biologic
CPT/HCPCS: 99213; G2211

== ENCOUNTER → 2024-10-14 12:26 | Outpatient (BNVA) | payer MEDICARE, SELFPAY | PROVIDERS: PCP Internal Medicine; Visit Provider Student in an Organized Health Care Education/Training Program | DX: M06.09 Rheumatoid arthritis without rheumatoid factor, multiple sites (principal); M47.816 Spondylosis without myelopathy or radiculopathy, lumbar region; Z51.81 Encounter for therapeutic drug level monitoring; Z79.620 Long term (current) use of immunosuppressive biologic | CPT/HCPCS: 99212 ==

== ENCOUNTER 2024-12-15 11:28 | Outpatient (REF) | payer MEDICARE, SELFPAY ==
--- OUTSIDE RECORDS SUMMARY | 2024-12-15 12:16 | XMS_ITS | Patient Health Record ---
Author Organization [facility] Address [address] [place] [address] Care Team Providers Care Sizing Sponger Name Role Phone Ever Lawrence Primary Care Provider Unavailab Gustavo Paula Unavailable [phone] Reason For Referral No Information Medications Medication SIG (Take, Route, Fr equency, Duration) Notes Start Date End Date Status Lisinopril 5 MG take 1 tablet by once daily Oral for 30 Active Immunizations Vaccine Route Administration Date Status Comme nts Influenza Unknown 06/05/2019 Refused Problems Problem Type SNOMED Code ICD Code Onset Dates Problem Status W/U Status Risk Notes Problem 811411492 Encounter for screening for malignant neoplasm of colon (Z12.11) Active confirmed Problem 068861108 History of adenomatous polyp of colon (Z86.010) Active confirmed Problem [id number] Pre-procedural examination (Z01.818) Active confirmed Plan Of Treatment Pending Test Test Name Order Date GI BIOPSY 07/15/2019 Future Test Test Name Order Date COLONOSCOPY 05/18/2014 COLONOSCOPY 06/05/2019 Insurance Providers Payer Name Payer Address Payer Phone Subscriber Number Group Number Insured Name Patient Relationship to Insured Coverage Start Date Coverage End Date [facility] [address] [address] [place], [place] [id number] KALPANA VINES Self - patient is the insured Medical (General) History Medical History History ICD Code Denies ME,DM,CVA,Lung disease,renal dise ase Hypertension Screening colonoscopy 07/2014 with removal of 3 tubular adenomas--1 was approx. 1.5cm Surgical History Surgery Date(Month/Year) back surgery L4/L5 X 2 carpal tunnel release on both hands 2009
[2024-12-15 12:56] LABS: Prostate Specific Antigen 3.92 ng/mL (<0.05-4.0)
== END 2024-12-15 11:29 | disposition home or self-care (01) ==
LOC: HO.LAB 11:28
PROVIDERS: PCP Internal Medicine; Visit Provider Urology
DX: R97.20 Elevated prostate specific antigen [PSA] (principal); Z12.5 Encounter for screening for malignant neoplasm of prostate
CPT/HCPCS: 36415; 84153

== ENCOUNTER → 2025-01-06 14:29 | Outpatient (AMB) | payer MEDICARE, SELFPAY ==
--- NOTE | 2025-01-06 14:36 | A.OFFVIS_ITS ---
Intake Vital Signs 01/06/25 14:39 Height 6 ft Weight 204 lb 4 oz BMI 27.7 BP 112/74 Blood Pressure Location Lt brachial Position Sitting Pulse 83 Pulse Source Pulse Oximeter Temp 96.8 F Temp Source Temporal Artery Scan Pulse Oximetry (%) 94 Oxygen Delivery Method Room Air Intake Visit Reasons: Martine G0439 - see comments Intake Note: Patient is here for an Annual Wellness Visit. Quality Liaison Required: No Mineral Wool Insulation Supervisor: Mineral Wool Insulation Supervisor offered & declined Accompanied by: Self / Same As Patient Allergies No Known Allergies Allergy (Verified 01/06/25 15:11) Medication List - Last Reconciled 01/06/25 by Chris Ernst MD albuterol sulfate 90 mcg/actuation (Ventolin HFA) 1 inh inhalation QID PRN finasteride 5 mg PO DAILY 90 days fluticasone propionate 50 mcg/actuation (Flonase Allergy Relief) 1 spray intranasal DAILY omeprazole 40 mg PO DAILY prednisone 5 mg PO DIRECTED tramadol 50 mg PO BID PRN Yuflyma(CF) Autoinjector (adalimumab-aaty) 40 mg (0.4 mL) subcut Q2W NS HPI SWV G0439 - see comments HPI Details 69-year-old male presents to the office for a subsequent wellness visit. [facility] Medical History Osteoarthritis of hands, bilateral GERD (gastroesophageal reflux disease) Chronic pain syndrome Postlaminectomy syndrome Spondylosis of lumbar spine Primary osteoarthritis, left hand Primary osteoarthritis, right hand Osteoarthritis of neck Nicotine dependence, unspecified, uncomplicated Failed back syndrome Benign essential HTN Surgical History CTS (carpal tunnel syndrome) Hx of decompressive lumbar laminectomy Family History Father No problems noted. Mother No problems noted. Social History Housing: House Alcohol intake: current Alcohol intake frequency: 0-2 drinks per day Alcohol type: beer Patient Tobacco Use Status: Current someday Tobacco user Tobacco use type: Cigar Cigarettes Per Day: 1 e-Cigarette/Vaping Use: Never Used Second Hand Smoke Exposure: Yes service: No Current occupational status: unemployed Cognitive needs: No Hearing needs: No Vision needs: Yes (Glasses) Questionnaire Medicare Wellness Checkup [age] 65-70 What gender do you identify with?: male During the past 4 weeks, how much have you been bothered by emotional problems such as feeling anxious, depressed, irritable, sad or downhearted, and blue?: not at all During the past 4 weeks, has your physical & emotional health limited your social activities with family, friends, neighbors, or groups?: not at all During the past 4 weeks, how much bodily pain have you generally had?: moderate pain During the past 4 weeks, was someone available to help you if you needed & wanted help?: yes, as much as I wanted During the past 4 weeks, what was the hardest physical activity you could do for at least 2 minutes?: light Can you get to places out of walking distance without help? (For eg., can you travel alone on buses, taxis or drive your car?): Yes Can you go shopping for groceries or clothes without someone's help?: Yes Can you prepare your own meals?: Yes Can you do your housework without help?: Yes Because of any health problems, do you need the help of another person with your personal care needs such as eating, bathing, dressing or getting around the house?: No Can you handle your own money without help?: Yes During the past 4 weeks, how would you rate your health in general?: good During the past 4 weeks how have things been going for you?: pretty well Are you having difficulties driving your car?: no Do you always fasten your seat belt when you are in a car?: no During past 4 weeks, have you been bothered by the following: never: Falling or dizzy when standing up, Sexual problems?, Trouble eating well?, Teeth or denture problems?, Problems using the telephone? and Tiredness or fatigue? Have you fallen 2 or more times in the past year?: No Are you afraid of falling?: No Are you a smoker?: no During the past 4 weeks, how many drinks of wine, beer, or other alcoholic beverages did you have?: 10 or more per week Do you exercise for about 20 minutes 3 or more times a week?: yes, all the time Have you been given information to help with the following?: no: Hazards in your house that might hurt you? and no: Keeping track of your medications? How often do you have trouble taking medicines the way you have been told to jorgito e them?: I always take medicine as prescribed How confident are you that you can control & manage most of your health problems?: very confident What is your race?: White Mini Mental State Exam (MMSE) Orientation What is the (year) (season) (date) (day) (month)?: year, season, date and day Where are we (state) (county) (town or city) (hospital) (floor)?: state and county Score Score: 6 Activity of Daily Living Bathing - sponge bath, tub bath or shower: receives no assistance (gets in/out by self, if usual bathing means Dressing - getting clothes from closets & drawers, including inner/outer garments & fasteners.: gets clothes & gets completely dressed without help Toileting - going to the 'toilet room' for urine/bowel elimination & cleaning self/arranging clothes: goes to toilet room, cleans self, arranges clothes without help Transfer: moves in & out of bed and chair without help (may use support object) Continence: controls urination/bowel movements completely by self Feeding: feeds self without help Total Score: 0 Information obtained from: patient Using telephone: independent Traveling: independent Shopping: independent Preparing meals: independent Housework: independent Taking medicine: independent Managing money: independent PHQ-9 Over the last 2 weeks, how often have you been bothered by any of the following problems? 1. Little interest or pleasure in doing things: not at all 2. Feeling down, depressed, or hopeless: not at all 3. Trouble falling or staying asleep, or sleeping too much: not at all 4. Feeling tired or having little energy: not at all 5. Poor appetite or overeating: not at all 6. Feeling bad about yourself - or that you are a failure or have let yourself or your family down: not at all 7. Trouble concentrating on things, such as reading the newspaper or watching television: not at all 8. Moving or speaking so slowly that other people could have noticed. Or the opposite - being so fidgety or restless that you have been moving around a lot more than usual: not at all 9. Thoughts that you would be better off or of hurting yourself in some way: not at all Total score: 0 Depression Screening Interpretation: Negative Depression Screening Done: Yes Source: Developed by Drs. Gustavo Marques, Placido Pat and colleagues, with an educational po from [employer]. Thrive Questionnaire Date Thrive assessed: 01/06/25 I am a: Patient What is your living situation today?: I have a steady place to live Within the past 12 months, did the food you bought not last and you didn't have the money to get more?: Never true Within the past 12 months, did you worry whether your food would run out before you got money to buy more?: Never true Do you have trouble paying for medicines?: No Do you have trouble getting transportation to medical appointments?: No Do you have trouble paying your heating and electricity bill?: No Do you have trouble taking care of your child, family member or friend?: No Do you have trouble with day-to-day activities such as bathing, preparing meals, shopping, managing finances, etc.?: No Are you currently unemployed and looking for a job?: No Are you interested in more education?: No Please select the resources that you would like help with: None Currently or been in a relationship where the following occur: No concerns reported THRIVE Score: 0 PRINCE-7 AMB Questionnaire PRINCE-7 Date PRINCE - 7 assessed: 01/06/25 Feeling nervous, anxious, or on edge: 0 = Not at all Not being able to stop or control worryin = Not at all Worrying too much about different things: 0 = Not at all Trouble relaxin = Not at all Being so restless that it is hard to sit still: 0 = Not at all Becoming easily annoyed or irritable: 0 = Not at all Feeling afraid as if something awful might happen: 0 = Not at all Total PRINCE-7 score (0-4 normal; 5-9 mild; 10-14 moderate; 15-21 severe): 0 Source: Developed by Edna Wiggins Kurt Kroenke and colleagues, with an educational po from [employer]. AUDIT C Alcohol Use Questionnaire (AUDIT-C) 1. How often do you have a drink containing alcohol?: 2-3 times a week 2. How many drinks containing alcohol do you have on a typical day when you are drinking?: 1 or 2 3. How often do you have six or more drinks on one occasion?: Never Total Score: 3 Physical Exam Vital Signs: Last Vital Signs Temp 96.8 F 01/06/25 14:39 Pulse 83 01/06/25 14:39 BP 112/74 01/06/25 14:39 Pulse Ox 94 01/06/25 14:39 Oxygen Delivery Method Room Air 01/06/25 14:39 BMI result Body Mass Index 27.7 Balance: Normal Romberg: Negative Tandem Walk: Able to Walk and Turn: Able to Rise from sit to stand: Able to Hearing Whisper test: Pass Discussed the individualized screening and [place] of care Assessment & Plan Assessment & Plan (1) Annual physical exam: Code(s): Z00.00 - Encounter for general adult medical examination without abnormal findings Plan: History of Present Illness - The patient is a 69-year-old male presenting with a wellness visit and chronic back pain. - Reports flare-ups in his back over the last five months, with pain described as stabbing and intermittent. - Recent episode rated as 10 out of 10 in intensity, occurring during golf. - History of back surgeries and ineffective interventions, including tramadol and a spinal stimulator. - Open to trying muscle relaxants for relief. - Limited physical activity, such as golf, exacerbates symptoms, especially when bending or picking up objects. Social History - The patient engages in recreational activities such as golf, although his participation is limited due to back pain. Review of Systems - Musculoskeletal: Reports intermittent stabbing back pain for the past five months, exacerbated by certain movements. - Gastrointestinal: Denies abdominal pain. Physical Exam General: Cooperative and healthy appearing Nutritional Appearance: Well nourished Orientation/consciousness: Patient oriented x3 Limitations: No limitations Head: Normal to inspection General: Appearance normal, both eyes and all related structures Neck: Normal visual inspection Chest: Normal palpation of entire chest wall Respiratory: Normal respiratory effort Neurology: Patient oriented x3 Results Plan 1. Chronic Back Pain - Prescribe muscle relaxants to manage musculoskeletal pain. - Monitor pain levels and adjust treatment as necessary. Discussion Notes I discussed with the patient the plan to prescribe muscle relaxants to help manage his chronic back pain, as previous treatments were ineffective. We agreed to monitor his pain levels and adjust the treatment plan as needed. Patient Instructions - Take prescribed muscle relaxants as directed. - Monitor pain levels and report any changes or concerns. - Follow up if pain persists or worsens. Quality Reporting (2019) Depression/Bipolar (159/160/161/177) PHQ-9: Total score: 0 Coding Level of Care Code Medicare Subsequent (G0439) Diagnoses Annual physical exam Z00.00
[2025-01-06 14:39] VITALS: BP 112/74; PULSE 83; TEMP 36; O2SAT 94; BMI 27.7
--- OUTSIDE RECORDS SUMMARY | 2025-01-06 15:29 | XMS_ITS | Patient Health Record ---
Author Organization [facility] Address [address] [place] [address] Care Team Providers Care Ux Engineer Name Role Phone Ever Lawrence Primary Care Provider Unavailab Gustavo Paula Unavailable [phone] Reason For Referral No Information Medications Medication SIG (Take, Route, Fr equency, Duration) Notes Start Date End Date Status Lisinopril 5 MG take 1 tablet by once daily Oral for 30 Active Immunizations Vaccine Route Administration Date Status Comme nts Influenza Unknown 06/05/2019 Refused Problems Problem Type SNOMED Code ICD Code Onset Dates Problem Status W/U Status Risk Notes Problem 597815794 Encounter for screening for malignant neoplasm of colon (Z12.11) Active confirmed Problem 509314721 History of adenomatous polyp of colon (Z86.010) Active confirmed Problem 138231697445923 Pre-procedural examination (Z01.818) Active confirmed Plan Of Treatment Pending Test Test Name Order Date GI BIOPSY 07/15/2019 Future Test Test Name Order Date COLONOSCOPY 05/18/2014 COLONOSCOPY 06/05/2019 Insurance Providers Payer Name Payer Address Payer Phone Subscriber Number Group Number Insured Name Patient Relationship to Insured Coverage Start Date Coverage End Date [facility] [address] [address] [place], [place] [phone] [id number] KALPANA VINES Self - patient is the insured Medical (General) History Medical History History ICD Code Denies CA,DM,CVA,Lung disease,renal dise ase Hypertension Screening colonoscopy 07/2014 with removal of 3 tubular adenomas--1 was approx. 1.5cm Surgical History Surgery Date(Month/Year) back surgery L4/L5 X 2 carpal tunnel release on both hands 2009
== END ==
LOC: HO.HMCH 14:30
PROVIDERS: PCP Internal Medicine; Visit Provider Internal Medicine
DX: Z00.00 Encounter for general adult medical examination without abnormal findings (principal)

== ENCOUNTER 2025-03-18 15:21 | Outpatient (AMB) | payer MEDICARE, SELFPAY ==
[2025-03-18 15:24] VITALS: BP 148/96; PULSE 77; TEMP 36.3; O2SAT 97; BMI 29.0
--- NOTE | 2025-03-18 15:24 | MHC.PC.OV ---
Vital Signs 03/18/25 15:24 Height 6 ft Weight 214 lb BMI 29.0 BP 148/96 H Blood Pressure Location Lt brachial Position Sitting Pulse 77 Pulse Source Pulse Oximeter Temp 97.3 F Temp Source Temporal Artery Scan Pulse Oximetry (%) 97 Oxygen Delivery Method Room Air Intake Visit Reasons: pain in upper back/chest- okay per Dr Farley Allergies No Known Allergies Allergy (Verified 03/18/25 15:27) Tobacco use date assessed: 03/18/25 Fall risk assessment: No Falls in past year Last assessed Fall Risk: 03/18/25 Dental Screening Dental Screen Date: 03/18/25 Did you have a dental visit in the last 12 months?: Yes Did you have a dental problem in the last 6 months where you did not have access to dental care?: No Was dental information given to patient?: Patient has dentist [facility] Medical History Osteoarthritis of hands, bilateral GERD (gastroesophageal reflux disease) Chronic pain syndrome Postlaminectomy syndrome Spondylosis of lumbar spine Primary osteoarthritis, left hand Primary osteoarthritis, right hand Osteoarthritis of neck Nicotine dependence, unspecified, uncomplicated Failed back syndrome Benign essential HTN Surgical History CTS (carpal tunnel syndrome) Hx of decompressive lumbar laminectomy Family History Father No problems noted. Mother No problems noted. Social History Housing: House Alcohol intake: current Alcohol intake frequency: 0-2 drinks per day Alcohol type: beer Patient Tobacco Use Status: Current someday Tobacco user Tobacco use type: Cigar Cigarettes Per Day: 1 e-Cigarette/Vaping Use: Never Used Second Hand Smoke Exposure: Yes service: No Current occupational status: unemployed Cognitive needs: No Hearing needs: No Vision needs: Yes (Glasses) Questionnaire PHQ-9 Over the last 2 weeks, how often have you been bothered by any of the following problems? 1. Little interest or pleasure in doing things: nearly every day 2. Feeling down, depressed, or hopeless: nearly every day 3. Trouble falling or staying asleep, or sleeping too much: more than half the days 4. Feeling tired or having little energy: more than half the days 5. Poor appetite or overeating: not at all 6. Feeling bad about yourself - or that you are a failure or have let yourself or your family down: not at all 7. Trouble concentrating on things, such as reading the newspaper or watching television: not at all 8. Moving or speaking so slowly that other people could have noticed. Or the opposite - being so fidgety or restless that you have been moving around a lot more than usual: not at all 9. Thoughts that you would be better off or of hurting yourself in some way: not at all Total score: 10 Source: Developed by Drs. Gustavo Marques, Edna Lam, Placido Sims and colleagues, with an educational po from [employer]. Thrive Questionnaire Date Thrive assessed: 01/06/25 I am a: Patient What is your living situation today?: I have a steady place to live Within the past 12 months, did the food you bought not last and you didn't have the money to get more?: I choose not to answer this question Within the past 12 months, did you worry whether your food would run out before you got money to buy more?: I choose not to answer this question Do you have trouble paying for medicines?: No Do you have trouble getting transportation to medical appointments?: No Do you have trouble paying your heating and electricity bill?: No Do you have trouble taking care of your child, family member or friend?: No Do you have trouble with day-to-day activities such as bathing, preparing meals, shopping, managing finances, etc.?: No Are you currently unemployed and looking for a job?: No Are you interested in more education?: No Please select the resources that you would like help with: None Currently or been in a relationship where the following occur: I choose not to answer THRIVE Score: 0 AUDIT C Alcohol Use Questionnaire (AUDIT-C) 1. How often do you have a drink containing alcohol?: 2-3 times a week 2. How many drinks containing alcohol do you have on a typical day when you are drinking?: 3 or 4 3. How often do you have six or more drinks on one occasion?: Monthly Total Score: 6 PRINCE-7 AMB Questionnaire PRINCE-7 Date PRINCE - 7 assessed: 01/06/25 Feeling nervous, anxious, or on edge: 0 = Not at all Not being able to stop or control worryin = Not at all Worrying too much about different things: 0 = Not at all Trouble relaxin = Not at all Being so restless that it is hard to sit still: 0 = Not at all Becoming easily annoyed or irritable: 0 = Not at all Feeling afraid as if something awful might happen: 0 = Not at all Total PRINCE-7 score (0-4 normal; 5-9 mild; 10-14 moderate; 15-21 severe): 0 Source: Developed by Drs. Gustavo Marques, Edna Lam, Placido Sims and colleagues, with an educational po from [employer]. Physical exam (Primary Care) Vital Signs: Last Vital Signs Temp 97.3 F 03/18/25 15:24 Pulse 77 03/18/25 15:24 BP 148/96 H 03/18/25 15:24 Pulse Ox 97 03/18/25 15:24 Oxygen Delivery Method Room Air 03/18/25 15:24 BMI result Body Mass Index 29.0 Tobacco/Smoking Status: Tobacco use Status Tobacco use date assessed 03/18/25 03/18/25 15:30 Patient Tobacco Use Status Current someday Tobacco 03/18/25 15:30 Tobacco use type Cigar 03/18/25 15:30 e-Cigarette/Vaping Use Never Used 03/18/25 15:30 PHQ-9: PHQ-9 Score PHQ-9: Total score 10 03/18/25 15:30 Thrive Assessment: Date of Thrive Assessment Date Thrive assessed 01/06/25 03/18/25 15:30 Currently or been in a relationship where the following occur: I choose not to answer Coding Level of Care Code Est Pt Level 4 (56426) Complex EM visit Add On G2211 Diagnoses Lung mass R91.8 Assessment & Plan Assessment & Plan (1) Lung mass: Code(s): R91.8 - Other nonspecific abnormal finding of lung field Plan: History of Present Illness - The patient is a 69-year-old male presenting for evaluation of chronic back pain and a new symptom of pain under his right ribcage. - He has a history of chronic upper back pain, described as intermittent and stabbing, with a recent severe flare-up while playing golf. - Prior ineffective interventions for his back pain include back surgeries, a spinal cord stimulator, tramadol, and muscle relaxants. - For the past 5-6 weeks, the patient has experienced new pain located under his right ribcage, which he describes as a burning sensation. - This pain is now constant, occurring all day, every day, and is exacerbated by strenuous activities such as bending, stretching, and lifting. - He denies associated fever, chills, dyspnea, pain with deep inspiration, or weight loss, and reports a good appetite and normal energy levels. 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 - He is currently on bi-weekly adalimumab (Yuflyma) injections, which have been helpful after a weekly pen was ineffective, though he still has some trouble with his hands. - He has not discussed the new subcostal pain with his non garment sewing machine operator. - His current medications include albuterol, fluticasone, and omeprazole. - He reports smoking one cigar daily. Social History - Tobacco Use: Smokes one cigar per day. - Functional Status: The patient reports he is able to perform his normal functions and his energy levels are not down. Review of Systems - Constitutional: Denies fever, chills, and weight loss. - Respiratory: Denies trouble breathing and pain on deep inspiration. - Musculoskeletal: Reports chronic, intermittent, stabbing pain in the upper back. - Abdomen/GI: Reports a new, constant, daily burning sensation under the right ribcage for the past 5-6 weeks, exacerbated by strenuous activity. - Extremities: Reports some trouble with his hands. Physical Exam General: Cooperative and healthy appearing Nutritional Appearance: Well nourished Orientation/consciousness: Patient oriented x3 Limitations: No limitations Head: Normal to inspection General: Appearance normal, both eyes and all related structures Neck: Normal visual inspection Chest: Normal palpation of entire chest wall Respiratory: N, no trouble breathing, no pain on deep breath ormal respiratory effort Neurology: Patient oriented x3 Results Plan - Order a CT scan of the chest to investigate the new-onset pain and rule out an underlying mass. - Follow up with the patient to discuss the results of the CT scan. - Acknowledge that the patient has already received his influenza vaccination. Discussion Notes I saw the patient to evaluate his new pain under the right ribcage, distinct from his chronic back pain. I explained that due to the new and persistent nature of this pain, further investigation is warranted despite a normal physical exam. The plan is to order a CT scan of the chest to rule out an underlying mass as the cause of his symptoms. I will inform the patient of the results once they are available. The patient understood the rationale for the visit and the planned imaging study. Patient Instructions - You will be getting a CT scan of your chest to look for a reason for your new pain. - I will call you with the results of the scan. - Continue taking your current medications as prescribed. Orders: Orders CT chest w IV con 03/18/25 R91.8 - Other nonspecific abnormal finding of lung field
--- OUTSIDE RECORDS SUMMARY | 2025-03-18 18:15 | XMS_ITS | Patient Health Record ---
Author Organization [facility] Address [address] [place] [address] Care Team Providers Care Dip Dyer Name Role Phone Ever Lawrence Primary Care Provider Unavailab Gustavo Paula Unavailable [phone] Reason For Referral No Information Medications Medication SIG (Take, Route, Fr equency, Duration) Notes Start Date End Date Status Lisinopril 5 MG take 1 tablet by once daily Oral; Duration: 30 Active Immunizations Vaccine Route Administration Date Status Comme nts Influenza Unknown 06/05/2019 Refused Problems Problem Type SNOMED Code ICD Code Onset Dates Problem Status W/U Status Risk Notes Problem Screening for malignant neoplasm of colon (305502785) Encounter for screening for malignant neoplasm of colon (Z12.11) Active confirmed Problem History of adenomatous polyp of colon (717660053) History of adenomatous polyp of colon (Z86.010) Active confirmed Problem Pre-procedure evaluation check (229025635) Pre-procedural examination (Z01.818) Active confirmed Plan Of Treatment Pending Test Test Name Order Date GI BIOPSY 07/15/2019 Future Test Test Name Order Date COLONOSCOPY 05/18/2014 COLONOSCOPY 06/05/2019 Insurance Providers Payer Name Payer Address Payer Phone Subscriber Number Group Number Insured Name Patient Relationship to Insured Coverage Start Date Coverage End Date [facility] [employer] [address] [address] [place], [place] [id number] KALPANA VINES Self - patient is the insured Medical (General) History Medical History History ICD Code Denies [place],DM,CVA,Lung disease,renal dise ase Hypertension Screening colonoscopy 07/2014 with removal of 3 tubular adenomas--1 was approx. 1.5cm Surgical History Surgery Date(Month/Year) back surgery L4/L5 X 2 carpal tunnel release on both hands 2008
== END 2025-03-18 16:32 | disposition home or self-care (01) ==
LOC: HO.HMCH 15:22
PROVIDERS: PCP Internal Medicine; Visit Provider Internal Medicine
DX: R91.8 Other nonspecific abnormal finding of lung field (principal)

== ENCOUNTER → 2025-03-18 15:21 | Outpatient (BNVA) | payer MEDICARE, SELFPAY | PROVIDERS: PCP Internal Medicine; Visit Provider Internal Medicine | DX: R91.8 Other nonspecific abnormal finding of lung field (principal); F17.200 Nicotine dependence, unspecified, uncomplicated; Z71.6 Tobacco abuse counseling | CPT/HCPCS: 99212 ==

== ENCOUNTER 2025-04-15 11:32 | Outpatient (REF) | payer MEDICARE, SELFPAY ==
[2025-04-15 11:54] LABS: MANUAL DIFF FLAG NO
[2025-04-15 12:28] LABS: Hematocrit 45.0 % (42.0-52.0); Hemoglobin 15.8 g/dl (14.0-18.0); Imm Gran Abs Auto 0.03 X10*3/uL (0.00-0.03); Imm Gran Pct Auto 0.4 % (0.0-0.4); Lymphocytes Absolute Auto 1.9 X10*3/uL (1.2-4.9); Mean Corpuscular HGB Conc 35.1 g/dl (31.0-36.0); Mean Corpuscular Hemoglobin 31.4 pg (27.0-33.0); Mean Corpuscular Volume 89.5 fL (80.0-98.0); NRBC Abs Auto 0.000 X10*3/uL (0.0-0.012); NRBC Pct Auto 0.0 /100WBC (0.0-0.2); Platelet Count 224 X10*3/uL (160-400); Red Blood Count 5.03 X10*6/uL (4.60-5.80); White Blood Count 6.8 X10*3/uL (4.8-10.8)
[2025-04-15 12:53] LABS: Alanine Aminotransferase 28 U/L (0-40); Albumin Level 4.4 g/dL (3.5-5.0); Alkaline Phosphatase 71 U/L (39-117); Anion Gap 10 (12-20); Aspartate Amino Transferase 28 U/L (5-37); Blood Urea Nitrogen 11 mg/dL (9-16); Calcium 9.2 mg/dL (8.4-10.2); Carbon Dioxide 28 mmol/L (22-29); Chloride 108 mmol/L (96-108); Estimated Glomerular Filt Rate > 60; Potassium 4.7 mmol/L (3.3-5.1); Sodium 141 mmol/L (135-145); Total Protein 6.9 g/dL (6.5-8.0)
[2025-04-15 13:08] LABS: Erythrocyte Sedimentation Rate 8 MM/HR (0-15)
[2025-04-15 13:14] LABS: HBS Num1 0.00 mIU/mL (0-7.99); HBc Num1 0.04 S/CO (0.00-0.79); HBsAGNum1 0.25 S/CO (0.00-0.99); Hepatitis A Antibody IgM 0.20 Index (0-0.79); Hepatitis B Surface Antigen Negative (Negative); ~HepC Num1 0.07 S/CO (0.00-0.79); ~Hepatitis A Antibody IgM Nonreactive (Nonreactive); ~Hepatitis B Surface Antibody NONREACTIVE (Nonreactive); ~Hepatitis C Antibody Nonreactive (Nonreactive)
[2025-04-17 21:48] LABS: TS Negative Control Passed; TS Panel A 0; TS Panel B 0; TS Positive Control Passed; TSpotTB Negative (Negative)
== END 2025-04-15 11:33 | disposition home or self-care (01) ==
LOC: HO.LAB 11:32
PROVIDERS: Absent Provider Student in an Organized Health Care Education/Training Program; PCP Internal Medicine; Visit Provider Internal Medicine
DX: M06.09 Rheumatoid arthritis without rheumatoid factor, multiple sites (principal)
CPT/HCPCS: 36415; 80053; 85025; 85652; 86140; 86481; 86704; 86706; 86709; 86803; 87340

== ENCOUNTER 2025-04-20 08:42 | Outpatient (AMB) | payer MEDICARE, SELFPAY ==
--- NOTE | 2025-04-20 09:00 | MHC.OFFVIS ---
Vital Signs 04/20/25 09:04 Height 6 ft Weight 224 lb 10.417 oz BMI 30.5 BP 140/82 H Blood Pressure Location Lt brachial Position Sitting Pulse 63 Pulse Source Pulse Oximeter Pulse Oximetry (%) 99 Oxygen Delivery Method Room Air Intake Visit Reasons: 6 month f/u Intake Note: Patient Presents today for RA follow up and test results. Major Case Detective Required: No Information Interpreted: non-clinical & clinical Accompanied by: Self / Same As Patient Allergies No Known Allergies Allergy (Verified 04/20/25 09:04) Medication List - Last Reconciled 04/20/25 by Susanne Fowler MD albuterol sulfate 90 mcg/actuation (Ventolin HFA) 1 inh inhalation QID PRN fluticasone propionate 50 mcg/actuation (Flonase Allergy Relief) 1 spray intranasal DAILY omeprazole 40 mg PO DAILY Yuflyma(CF) Autoinjector (adalimumab-aaty) 40 mg (0.4 mL) subcut Q2W NS HPI Comments Details: Patient is a 69-year-old male current everyday smoker with hypertension, polyarticular osteoarthritis, seronegative rheumatoid arthritis here today for follow up Interval History: Patient last seen 10/14/24 with me. - On Adalimumab 40mg every 2 weeks - Doing well - Flare resolved after prednisone course - Restarted Humira - Complaining of back pain, prescribed tramadol Today - On Adalimumab 40mg every 2 weeks - Bilateral shhoulder pain, known OA. Gets intermittent steroid injections from ortho - Trigger finger of the left thumb - Right DeQuervain's tendonitis - Notices that he is more sore, took prednisone 10mg which helped - Noted bilateral hand swelling and sore - Also with back pain after playing golf. Did not respond to muscle relaxers. Did not respond to tramadol - RUQ abdominal pain being evaluated by PCP Rheumatologic History: Seroneg dx 12/02 MTX 2018 for 3-6 months ineffective PDN throughout Enbrel 11/2022-04/2023 ineffective Adalimumab 11/2023 effective Current Rheumatology Medication(s): Adalimumab 40mg every 2 weeks [facility] Medical History Osteoarthritis of hands, bilateral GERD (gastroesophageal reflux disease) Chronic pain syndrome Postlaminectomy syndrome Spondylosis of lumbar spine Primary osteoarthritis, left hand Primary osteoarthritis, right hand Osteoarthritis of neck Nicotine dependence, unspecified, uncomplicated Failed back syndrome Benign essential HTN Surgical History CTS (carpal tunnel syndrome) Hx of decompressive lumbar laminectomy Family History Father No problems noted. Mother No problems noted. Social History Housing: House Alcohol intake: current Alcohol intake frequency: 0-2 drinks per day Alcohol type: beer Patient Tobacco Use Status: Current someday Tobacco user Tobacco use type: Cigar Cigarettes Per Day: 1 e-Cigarette/Vaping Use: Never Used Second Hand Smoke Exposure: Yes service: No Current occupational status: unemployed Cognitive needs: No Hearing needs: No Vision needs: Yes (Glasses) Physical Exam Exam Exam: Vital signs reviewed Physical Examination CONSTITUITIONAL Patient alert and cooperative. Well appearing and in no apparent painful distress MSK Hands Right Hand: Able to make a fist. No swelling or tenderness to palpation of the MCPs, PIPs or DIPs. TTP of the 1st compartment tendons Left Hand: Able to make a fist. No swelling or tenderness to palpation of the MCPs, PIPs or DIPs. Left thumb triggering without pain Herbedens nodes noted bilaterally Wrists Right Wrist: Full ROM to flexion and extension. No swelling or TTP Left Wrist: Full ROM to flexion and extension. No swelling or TTP Elbows Right Elbow: Full ROM. No swelling or TTP. No TTP of the medial epicondyle. No TTP of the lateral epicondyle Left Elbow: Full ROM. No swelling or TTP. No TTP of the medial epicondyle. No TTP of the lateral epicondyle Shoulders Right shoulder: Decreased ROM. No swelling noted. TTP of the AC joint. No TTP of the subacromial bursa. No TTP of the posterior shoulder Left shoulder: Decreased ROM. No swelling noted. TTP of the AC joint. No TTP of the subacromial bursa. No TTP of the posterior shoulder Knees Right knee: Good ROM. No swelling noted. No TTP of the knee joint line. No TTP of pes anserine bursa Left knee: Good ROM. No swelling noted. No TTP of the knee joint line. No TTP of pes anserine bursa. Crepitations felt bilaterally Ankles Right ankle: Good ankle dorsiflexion and plantar flexion. No swelling. No TTP of the ankle joint Left ankle: Good ankle dorsiflexion and plantar flexion. No swelling. No TTP of the ankle joint Feet Right foot: Negative squeeze test Left foot: Negative squeeze test Tender points? No tenderness to palpation of the bilateral trapezius, supraspinatus, anterior costochondral junctions, bilateral suboccipital muscle insertions SKIN No rashes Vital Signs: Last Vital Signs Pulse 63 04/20/25 09:04 BP 140/82 H 04/20/25 09:04 Pulse Ox 99 04/20/25 09:04 Oxygen Delivery Method Room Air 04/20/25 09:04 BMI result Body Mass Index 30.5 Results Reviewed Results Reviewed: Laboratory Tests 04/15/25 11:52 WBC 6.8 RBC 5.03 Hgb 15.8 Hct 45.0 Plt Count 224 ESR 8 Sodium 141 Potassium 4.7 Chloride 108 Carbon Dioxide 28 BUN 11 Creatinine 0.95 AST 28 ALT 28 C-Reactive Protein 0.25 Laboratory Tests 04/15/25 11:52 Hepatitis A IgM Ab Nonreactive Hep Bs Antigen Negative Hep Bs Antibody NONREACTIVE Hep B Core Total Ab Nonreactive Hepatitis C Ab (EIA) Nonreactive TB Test (T-Spot) Com Negative Assessment & Plan Assessment & Plan (1) Rheumatoid arthritis: Comment: seroneg dx 12/02 MTX 2017 for 3-6 months ineffective PDN throughout Enbrel 11/2022-04/2023 ineffective Adalimumab 11/2023 effective Code(s): M06.9 - Rheumatoid arthritis, unspecified Category: Medical Qualifiers: Rheumatoid arthritis location: multiple sites Rheumatoid factor presence: without rheumatoid factor Qualified Code(s): M06.09 - Rheumatoid arthritis without rheumatoid factor, multiple sites Plan: #Rheumatoid arthritis Patient is a 69-year-old male with seronegative rheumatoid arthritis here today for follow up Noting moderate to severe symptoms on the biweekly Adalimumab, will increase the frequency for better coverage Plan - Increase frequency of Adalimumab 40mg every week - Prednisone 10mg prn (#30) - RTC 4 months - Labs before visit: CBC, CMP, ESR, CRP (2) Encounter for monitoring of adalimumab therapy: Code(s): Z51.81 - Encounter for therapeutic drug level monitoring; Z79.620 - intermediate card tender (current) use of immunosuppressive biologic Plan: #Long-term Use of TNF Inhibitors: Adalimumab Discussed with the patient the benefits and risks of TNF inhibitors for the management of the rheumatic condition Benefits include reduce pain, maintenance of remission and reduction of flares as well as ?progression of the disease Risks include injection sites/infusion reactions, serious infections (such as bacterial infections, opportunistic infections), malignancy, delaminating syndromes, autoimmune phenomena, CHF exacerbations, palmar plantar psoriasis and cytopenias Recommended rotating injection sites, and holding medication during and for up to 1 week after resolution of a febrile illness or open skin wound Plan I spent 30 minutes reviewing the record and labs, taking a history, examining the patient, discussing the treatment plan, ordering diagnostic work up and documenting in the medical record Orders: Orders Complete Blood Count Auto Diff 4 Months Z79.60 - [facility] (current) use of unspecified immunomodulators and immunosuppressants C Reactive Protein 4 Months Z79.60 - intermediate card tender (current) use of unspecified immunomodulators and immunosuppressants Comprehensive [place]. Panel Fast 4 Months Z79.60 - [facility] (current) use of unspecified immunomodulators and immunosuppressants Erythrocyte Sedimentation Rate 4 Months Z79.60 - intermediate card tender (current) use of unspecified immunomodulators and immunosuppressants Medications: New prednisone 10 mg PO DAILY PRN 30 tabs 0RF pain M06.09 - Rheumatoid arthritis without rheumatoid factor, multiple sites Changed From Yuflyma(CF) Autoinjector (adalimumab-aaty) 40 mg (0.4 mL) subcut Q2W 2 ea 5RF NS M06.09 - Rheumatoid arthritis without rheumatoid factor, multiple sites To Yuflyma(CF) Autoinjector (adalimumab-aaty) 40 mg (0.4 mL) subcut .every week 4 ea 5RF NS M06.09 - Rheumatoid arthritis without rheumatoid factor, multiple sites Coding Level of Care Code Est Pt Level 4 (88731) Complex visit Add On G2211 Diagnoses Rheumatoid arthritis of multiple sites with negative rheumatoid factor M06.09 Rheumatoid arthritis location: multiple sites Rheumatoid factor presence: without rheumatoid factor Encounter for monitoring of adalimumab therapy Z51.81; Z79.620
[2025-04-20 09:04] VITALS: BP 140/82; PULSE 63; O2SAT 99; BMI 30.5
== END 2025-04-20 09:53 | disposition home or self-care (01) ==
LOC: HO.RHES 08:43
PROVIDERS: PCP Internal Medicine; Visit Provider Student in an Organized Health Care Education/Training Program
DX: M06.09 Rheumatoid arthritis without rheumatoid factor, multiple sites (principal); Z51.81 Encounter for therapeutic drug level monitoring; Z79.620 Long term (current) use of immunosuppressive biologic
CPT/HCPCS: 99214; G2211

== ENCOUNTER → 2025-04-20 08:42 | Outpatient (BNVA) | payer MEDICARE, SELFPAY | PROVIDERS: PCP Internal Medicine; Visit Provider Student in an Organized Health Care Education/Training Program | DX: M06.09 Rheumatoid arthritis without rheumatoid factor, multiple sites (principal); Z79.60 Long term (current) use of unspecified immunomodulators and immunosuppressants | CPT/HCPCS: 99212 ==

== ENCOUNTER 2025-05-03 07:45 | Outpatient (REF) | payer MEDICARE, SELFPAY ==
--- NOTE | ~2025-05-03 | CT_ITS ---
EXAMINATION: CT CHEST WITH IV CONTRAST INDICATION: R91.8 - Other nonspecific abnormal finding of lung field COMPARISON: Correlation is made with a chest x-ray dated 10/25/2023. TECHNIQUE: Helical CT scan of the chest was performed following administration of intravenous contrast. Coronal and sagittal reformatted images were generated and reviewed. This CT exam was performed with one or more of the following dose reduction techniques: automated exposure control, adjustment of the mA and/or kV according to patient size, use of iterative reconstruction technique. DLP: 200 mGy-cm CHEST: THYROID: The thyroid is unremarkable. LUNGS: There is a 2 mm groundglass nodule at the right lung apex (series 5, image 22). There is a punctate calcified granuloma at the left lung base (series 5, image 115). No suspicious pulmonary nodules are identified. There are no focal airspace opacities. MEDIASTINUM: There are numerous tiny calcified hilar lymph nodes. There is no mediastinal lymphadenopathy. [place]TE: There is no hilar lymphadenopathy. CARDIOVASCULATURE: The heart is normal in size. There is no pericardial effusion. The thoracic aorta is normal in caliber. DEGREE OF CORONARY CALCIFICATION: severe PLEURA: There is no pleural effusion. No pneumothorax. MAIN AIRWAYS: The mainstem bronchi and proximal branches are patent. AXILLA: There is no axillary lymphadenopathy. BONES AND SOFT TISSUES: Unremarkable UPPER ABDOMEN: The visualized portions of the liver, spleen, and adrenals are unremarkable. There is a small hiatal hernia. CT/CT chest w IV con IMPRESSION: 1. No suspicious pulmonary nodules or airspace opacities are identified. 2. Severe coronary arterial calcification. Electronically signed by: Gustavo Betancourt MD 05/03/2025 10:28 AM [facility] [place]
--- OUTSIDE RECORDS SUMMARY | 2025-05-03 07:46 | XMS_ITS | Patient Health Record ---
Author Organization [facility] Address [address] [place] [address] Care Team Providers Care Fitness Manager Name Role Phone Ever Lawrence Primary Care Provider Unavailab Gustavo Paula Unavailable [phone] Reason For Referral No Information Medications Medication SIG (Take, Route, Fr equency, Duration) Notes Start Date End Date Status Lisinopril 5 MG Tablet take 1 tablet by mouth once daily Oral; Duration: 30 Active Immunizations Vaccine Route Administration Date Status Comme nts Influenza Unknown 06/05/2019 Refused Social History Social History Additional Details Category Social Info Options Details Miscellaneous: Marital status: Single 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 Smokes a few cigars per week ; 2 beers per wek Problems Problem Type SNOMED Code ICD Code Onset Dates Problem Status W/U Status Risk Notes Problem Screening for malignant neoplasm of colon (178595943) Encounter for screening for malignant neoplasm of colon (Z12.11) Active confirmed Problem History of adenomatous polyp of colon (135148255) History of adenomatous polyp of colon (Z86.010) Active confirmed Problem Pre-procedure evaluation check (425419635) Pre-procedural examination (Z01.818) Active confirmed Plan Of Treatment Pending Test Test Name Order Date GI BIOPSY 07/15/2019 Future Test Test Name Order Date COLONOSCOPY 05/18/2014 COLONOSCOPY 06/05/2019 Insurance Providers Payer Name Payer Address Payer Phone Subscriber Number Group Number Insured Name Patient Relationship to Insured Coverage Start Date Coverage End Date [facility] [facility] [address] [address] [place], [place] [id number] Self - patient is the insured Medical (General) History Medical History History ICD Code Denies [place],DM,CVA,Lung disease,renal dise ase Hypertension Screening colonoscopy 07/2014 with removal of 3 tubular adenomas--1 was approx. 1.5cm Surgical History Surgery Date(Month/Year) back surgery L4/L5 X 2 carpal tunnel release on both hands 2008
[2025-05-03] MEDS: iohexoL 350 MG/ML 100 ML INFUS..BTL 65 ML IV (10:06)
== END 2025-05-03 07:46 | disposition home or self-care (01) ==
LOC: HO.CT 07:45
PROVIDERS: PCP Internal Medicine; Visit Provider Internal Medicine
DX: R91.8 Other nonspecific abnormal finding of lung field (principal)
CPT/HCPCS: 71260; Q9967

== ENCOUNTER → 2025-05-03 07:47 | Outpatient (BNV) | payer MEDICARE, SELFPAY | PROVIDERS: PCP Internal Medicine; Visit Provider Radiology Diagnostic Radiology | DX: R91.1 Solitary pulmonary nodule (principal); I25.84 Coronary atherosclerosis due to calcified coronary lesion | CPT/HCPCS: 71260 ==